=== PATIENT | male | born 1940 | race Caucasian/White ===

== ENCOUNTER 2016-07-31 15:49 | Emergency (ER) | payer MEDICARE, OTHER ==
[~2016-07-31] VITALS: Ht 157.5 cm; Wt 58.6 kg
[~2016-07-31 15:49] MED LIST: CALC-190 PO; CHOL100045 PO; CYAN10008 PO; CYCL5TAB PO; DOCU250C2 PO; DOXA2TAB52 PO; HYDR-4003 PO; LEVO25TA5 PO; MULT-1073 PO; POLY17PO6 PO; RANI300C PO; VITAMIN B IM
[2016-07-31 15:51] VITALS: BP 124/74; PULSE 68; RESP 15; O2SAT 93
[2016-07-31 16:38] LABS: BASOPHILS % (AUTO) 0.1 % (0-3); EOSINOPHILS % (AUTO) 3.9 % (0-5); Mean Corpuscular Hemoglobin 30.1 pg (27.0-35.0); Mean Corpuscular Volume 90.8 fL (81-100); NEUTROPHILS % (AUTO) 69.1 % (40-74); Platelet Count 228 bil/L (150-400)
[2016-07-31 17:03] LABS: TROPONIN T < 0.010 ug/L (0.0-0.011)
[2016-07-31 17:13] LABS: Magnesium 1.7 mg/dL (1.6-2.6)
--- NOTE | 2016-07-31 17:27 | ED.REPORT ---
HPI-Chest Pain 40 and Over Date of Service Jul 31, 2016 ED Provider: Kamlesh Driscoll MD Lenin Juarez is a pleasant 76-year-old gentleman with history of Crohn's disease status post colectomy, BPH, and GERD presents by direction of Dr. Broderick's office for continued shortness of breath and left thoracic pain. Says he had an x-ray performed for pain in his left chest, and he was told since he was continuing to have shortness of breath that he needs to go to the emergency department given that there was something seen on his chest x-ray in his left lung. States he is having some nausea, some dyspnea on exertion, some orthopnea, no lightheadedness, no dizziness, no diarrhea or constipation, no dysuria, no headache, no changes in vision, no weight loss, no weight gain. Says he does have cough that is dry, denies hemoptysis, has not noted any countries known for endemic tuberculosis, nor has he ever knowingly been in contact with anybody with tuberculosis. He is a previous smoker, last smoked in 1990, beforehand smoked off and on for about 20 years at a time. Nursing Notes Stated Complaint: CHEST PAIN Chief Complaint: Respiratory Distress Allergies: Coded Allergies: meperidine (Verified Allergy, Severe, BAD REACTION, high heart rate, ) azathioprine (Verified Allergy, Unknown, 09/29/15) aspirin (Verified Adverse Reaction, Severe, affects stomach, 09/29/15) lactose (Verified Adverse Reaction, Mild, UNSPECIFIED, 09/29/15) Uncoded Allergies: imuran (Allergy, Severe, 11/07/04) Scheduled ([Vitamin B12 1000 mcg]) 1,000 MCG IM monthly Calcium Carb&Cit/Mag12/Vit D3 (Calcium 500 mg Tablet) 1 Each Tablet 1 EACH PO DAILY Cholecalciferol (Vitamin D3) (Vitamin D) 1,000 Unit Capsule 1,000 UNIT PO DAILY Doxazosin (Cardura) 2 Mg Tablet 2-4 MG PO HS Levothyroxine (Levothyroxine) 25 Mcg Tablet 25 MCG PO DAILY Multivits-Min/FA/Lycopene/Lut (Centrum Silver Tablet) 1 Each Tablet 1 EACH PO DAILY Ranitidine (Ranitidine) 300 Mg Capsule 300 MG PO BID Scheduled PRN Cyclobenzaprine (Cyclobenzaprine) 5 Mg Tablet 5 MG PO TID PRN PRN Spasm Docusate Sodium (Docusate Sodium) 250 Mg Capsule 250 MG PO BID PRN PRN For Constipation postop Hydrocodone-Acetaminophen 5-325 mg (Hydrocodone-Acetaminophen 5-325 mg) 1 Each Tablet 1-2 TABLET PO q4-6h PRN PRN For Pain POSTOP Polyethylene Glycol 3350 (Miralax) 17 Gm Powd.pack 17 GM PO DAILY PRN PRN For Constipation Miscellaneous Medications Cyanocobalamin (Vitamin B-12) (Vitamin B-12) 1,000 Mcg Tablet 3,000 MCG PO General Time Seen by MD: 17:15 Chief Complaint Chest pain, Shortness of breath Hx Obtained From: Patient, Spouse Sudden in Onset?: Yes Past Medical History Past Medical History Hypothyroidism Crohn's SP Colectomy BPH GERD Past Surgical History Laminectomy on 09/27/2015 Colectomy Family History mgf - crohns brother - "tumor in his back" Maternal uncle - of colon cancer. father - "had heart problems" Smoking History Former Smoker (quit 1990, off and on through out life. ) Social History Alcohol Use: "Social" Drug Use: Denies drug use Ambulatory Status Independent Review of Systems Complete sys rev & neg: except as marked. Physical Exam General: Laying in bed, no apparent distress. HEENT: Normocephalic, atraumatic, EOMI grossly, Cardiovascular: Regular rate and rhythm, no clicks murmurs rubs, peripheral pulses 2/4 equal bilaterally Pulmonary: Lung morfin clear to auscultation bilaterally, there are decreased breath sounds in the lower left axillary morfin. Abdominal: Soft palpation, tenderness with moderately deep palpation, no rebound , no Btaes's sign, no McBurney point tenderness, negative [place], negative [place]'s Sign. Extremities: No edema appreciated. No tenderness, asymmetry. Neuro: Neurologically grossly intact, strength is equal bilaterally upper and lower extremities. MSK: Able to move extremities on his own volition, strength 5 out of 5 equal bilaterally to upper and lower extremities. Initial Vital Signs Vital Signs (First) Date Time Temp Pulse Resp B/P Pulse Ox O2 Delivery O2 Flow Rate FiO2 07/31/16 15:51 36.9 68 15 124/74 93 Room Air Initial VS: Reviewed, Vital signs normal Interpretation & Diagnostics CT chest abdomen pelvis with contrast performed 07/31/2016 IMPRESSION: 1. Innumera left pulmonary mass lesion and multiple subcentimeter bilateral pulmonary nodules suspicious for primary bronchogenic carcinoma with multiple pulmonary metastases. 2. Extensive mediastinal and hilar adenopathy. 3. Small low density pericardial effusion. 4. Bilateral pleural effusions, greater on the left on the right. 5. Cholelithiasis. No findings to suggest acute cholecystitis or choledocholithiasis. 6. Left lower quadrant enhancing soft tissue mass near the inguinal canal. It is unclear whether this represents some type of soft tissue metastasis or something related to prior hernia surgery (hernia mesh?). Please correlate clinically. No other findings to suggest peritoneal metastasis. 7. Lytic lesion in T9 and posterior left rib lesion suspicious for bony metastasis. Note: The preliminary [facility] interpretation and the final report are concordant. Dictated by: Negin Mott M.D. on 07/31/2016 at 20:42 Lab Results Interpretation Result Diagram: 07/31/16 1634 07/31/16 1634 Test 07/31/16 16:34 White Blood Count 7.2th/mm3 (3.8-10.1) Red Blood Count 4.58mil/mm3 (4.40-5.80) Hemoglobin 13.8g/dL (13.8-17.2) Hematocrit 41.6% (41.0-50.0) Mean Corpuscular Volume 90.8fL (81-100) Mean Corpuscular Hemoglobin 30.1pg (27.0-35.0) Mean Corpuscular Hemoglobin Concent 33.2% (32.0-37.0) Red Cell Distribution Width 14.9% (12.3-15.4) Platelet Count 228bil/L (150-400) Neutrophils (%) (Auto) 69.1% (40-74) Lymphocytes (%) (Auto) 13.2% (14-46) Monocytes (%) (Auto) 13.0% (4-12) Eosinophils (%) (Auto) 3.9% (0-5) Basophils (%) (Auto) 0.1% (0-3) Sodium Level 135mEq/L (134-144) Potassium Level 3.9mEq/L (3.5-5.2) Chloride Level 100mEq/L (97-108) Carbon Dioxide Level 22mmol/L (18-29) Blood Urea Nitrogen 9mg/dL (8-27) Creatinine 0.86mg/dL (0.76-1.27) Estimat Glomerular Filtration Rate 91mL/min (>59) Glucose Level 99mg/dL (60-99) Calcium Level 8.9mg/dL (8.5-10.1) Magnesium Level 1.7mg/dL (1.6-2.6) Total Bilirubin 0.6mg/dL (0.0-1.2) Aspartate Amino Transf (AST/SGOT) 25U/L (0-50) Alanine Aminotransferase (ALT/SGPT) 16U/L (0-44) Alkaline Phosphatase 73U/L (25-160) Troponin T < 0.010ug/L (0.0-0.011) Total Protein 6.1g/dL (6.4-8.4) Albumin 3.6g/dL (3.4-5.0) Hold Benedict Top Tube Received (Received) Lab Results Interpretation: Hematology and chemistries unremarkable ECG Interpretation ECG Interpretation: Sinus rhythm, heart rate 64, AK interval 167, QTC 416, normal axis, "anterior infarct, old" Re-Eval/Medical Decision Med Decision/Clinical Course CAT scan of chest, abdomen, pelvis revealed masses suspicious of cancer and metastatic disease. Findings were shared with patient, his , and daughter. Dr. Salvador, oncologist, was contacted regarding the findings, he stated he would review the images himself and to inform the patient that he can expect a call for scheduling biopsy in the near future. Red flag symptoms for worsening respiratory distress as well as instructions to follow-up with his primary care doctor were discussed, patient and stated understanding and agreement. Discharge & Departure Primary Impression: Lung mass Additional Impressions: Shortness of breath due to in first trimester Metastatic disease Disposition: Home Discharge Condition All VS Reviewed: Yes Condition: Stable Additional Instructions: Today your evaluation showed lesions in your lung that are consistent with cancer. Additionally, there are also signs that there is spread to your spine and lymph nodes around your lungs. At this point we are not able to tell you if the mass in your lungs is the primary lesion or if it is itself spread from another part of your body. I have spoken personally with Dr. Salvador of oncology, informed him of your diagnosis and symptoms, he says you will be contacted for biopsy to help expedite the diagnosis and treatment and that you should be hearing about scheduling and the next day or 2. Please follow-up with Dr. Broderick as well. Both copies of today's visit and results will be sent to the two doctors. If you experience any worsening shortness of breath, lightheadedness, dizziness , or worsening pain in your chest you are welcome to return to the emergency department or call 911 if necessary. I encourage you to be optimistic, go about daily life, and write down questions as you have them so they may be answered by the appropriate physician. Referrals: Oleg Broderick MD (PCP) Teri Salvador MD EDSupervising Provider for APC: Kamlesh Driscoll MD Attending Statement Attending attestation: I saw this patient in conjunction with the above named resident. I was present for all torres portions of the history taking and physical examination. I agree with the workup, evaluation, treatment and disposition. Kamlesh Driscoll MD copies to: Oleg Broderick MD; Teri Salvador MD, Noah M DO Jul 31, 2016 17:27 Kamlesh Driscoll MD Jul 31, 2016 22:58
[2016-07-31] MEDS ORDERED: Iohexol 240 mg/mL 10 mL Inj PO ONE (18:00)
[2016-07-31] MEDS ORDERED: IOHEXOL ONE (18:37)
--- NOTE | 2016-07-31 20:57 | DRSVH ---
PROCEDURE: CT CHEST, ABDOMEN AND PELVIS WITH CONTRAST ([id number]) INDICATIONS: Lung effusion, mass in L lung, CA eval TECHNIQUE: After the administration of intravenous contrast, 5 mm thick sections acquired from the lung apices t o the symphysis. 5 mm coronal and sagittal reformats were performed, with additional 7 mm MIP reform ats through the lungs. For radiation dose reduction, the following was used: automated exposure con trol, adjustment of mA and/or kV according to patient size. COMPARISON: FINDINGS: Image quality: Excellent. CHEST: Lungs and pleura: There are innumerable bilateral subcentimeter pulmonary nodules. These are largest and most confluent at the right dependent lung bases. There is a small right and moderate left low-de nsity pleural effusion. These findings are new when compared with the prior chest CT dated 08/15/11. N o pneumothorax. An ill-defined mass is present within the left midlung which measures 3.9 x 4.5 cm. Mediastinum: Heart size is normal. There is a small low-density pericardial effusion. There are multi ple enlarged enhancing mediastinal lymph nodes, the largest of which is in the subcarinal location an d measures 3.0 cm in diameter. There is bilateral hilar adenopathy and enlarged periaortic lymph node s as well. Chest wall: No axillary or supraclavicular adenopathy by size criteria. Thyroid gland is unremarkab le. ABDOMEN: Solid organs: Liver and spleen are normal in size and enhancement. Punctate calcifications within th e spleen suggest prior granulomatous disease. Multiple subcentimeter gallstones are present within th e gallbladder. Biliary system is non dilated. Pancreas enhances normally. No adrenal nodules. Kid neys demonstrate normal size and enhancement, without hydronephrosis. Peritoneum and bowel: Bowel loops demonstrate normal wall thickness and caliber. Patient is status p ost right hemicolectomy. No free fluid or air. Nodes and vessels: No retroperitoneal or mesenteric adenopathy by size criteria. Aorta and inferior vena cava are normal in size. There are scattered atheromatous calcifications throughout the aorta and iliac arteries bilaterally. Miscellaneous: No ventral hernias. PELVIS: Genitourinary: Bladder wall thickness is normal. The prostate is enlarged. An ill-defined enhancing soft tissue mass is present within the left lower quadrant (series 2, images 94-100). Miscellaneous: No inguinal adenopathy. There are small bilateral fat-containing inguinal hernias. Bones: There is a right T9 lytic lesion and a left posterior seventh lytic rib lesion with pathologic fracture. IMPRESSION: 1. Innumera left pulmonary mass lesion and multiple subcentimeter bilateral pulmonary nodules suspici ous for primary bronchogenic carcinoma with multiple pulmonary metastases. 2. Extensive mediastinal and hilar adenopathy. 3. Small low density pericardial effusion. 4. Bilateral pleural effusions, greater on the left on the right. 5. Cholelithiasis. No findings to suggest acute cholecystitis or choledocholithiasis. 6. Left lower quadrant enhancing soft tissue mass near the inguinal canal. It is unclear whether this represents some type of soft tissue metastasis or something related to prior hernia surgery (hernia mesh?). Please correlate clinically. No other findings to suggest peritoneal metastasis. 7. Lytic lesion in T9 and posterior left rib lesion suspicious for bony metastasis. Note: The preliminary [facility] interpretation and the final report are concordant. Dictated by: Negin Mott M.D. on 07/31/2016 at 20:42 Approved by: Negin Mott M.D. on 07/31/2016 at 20:55
[2016-07-31 21:19] VITALS: BP 140/78; PULSE 71; RESP 18; O2SAT 93
[2016-08-02] MEDS ORDERED: LEVO50TA6 PO (15:49)
[2016-08-02] MEDS ORDERED: DOXA2TAB PO (15:49)
[2016-08-02] MEDS ORDERED: tumeric PEG (15:49)
[2016-08-03] MEDS ORDERED: OXYGEN (08:35)
[2016-08-03] MEDS ORDERED: MULT1CAP33 PO (08:38)
[2016-08-03] MEDS ORDERED: ACET325T51 PO (08:38)
[2016-08-21] MEDS ORDERED: PRE10 PO (14:31)
[2016-08-21] MEDS ORDERED: AZIT250T4 PO (14:31)
[2016-08-21] MEDS ORDERED: ALBU8.5H2 INHALATION (14:31)
[2016-09-03] MEDS ORDERED: ONDA8TAB10 PO (13:55)
[2016-09-05] MEDS ORDERED: ACET-2605 PO (12:07)
== END 2016-07-31 21:22 | disposition home or self-care (01) ==
LOC: SED 15:49
DX: R91.1 Solitary pulmonary nodule (principal); D16.6 Benign neoplasm of vertebral column; R07.9 Chest pain, unspecified; K21.9 Gastro-esophageal reflux disease without esophagitis; K50.90 Crohn's disease, unspecified, without complications; E03.9 Hypothyroidism, unspecified; Z87.891 Personal history of nicotine dependence; Z88.6 Allergy status to analgesic agent; E73.8 Other lactose intolerance; Z90.49 Acquired absence of other specified parts of digestive tract
CPT/HCPCS: 36415; 71260; 74177; 80053; 83735; 84484; 85025; 93005; 99285; Q9967

== ENCOUNTER 2016-11-10 17:19 | Inpatient (IN) | payer MEDICARE, OTHER ==
[~2016-11-10] VITALS: Ht 157.5 cm; Wt 52.0 kg
[~2016-11-10 17:19] MED LIST changes: +ACET-2605 PO; +ALBU8.5H2 INHALATION; -CALC-190 PO; -CYCL5TAB PO; -DOCU250C2 PO; +DOXA2TAB PO; -DOXA2TAB52 PO; -HYDR-4003 PO; -LEVO25TA5 PO; +LEVO50TA6 PO; -MULT-1073 PO; +MULT1CAP33 PO; +ONDA8TAB10 PO; +OXYGEN; -POLY17PO6 PO; +PRE10 PO; +tumeric PEG
[2016-11-10 17:21] VITALS: BP 126/67; PULSE 70; RESP 30; O2SAT 93
[2016-11-10 18:04] VITALS: BP 115/58; PULSE 74; RESP 21; O2SAT 95
--- NOTE | 2016-11-10 18:13 | ED.REPORT ---
HPI-Dyspnea / Wheezing Date of Service Nov 10, 2016 ED Provider: Naveen Mayfield DO Pt is a 76 year old male with a history of left lung cancer who presents to the ED complaining of SOB onset 2 days ago. He c/o associated intermittent chest pain, cough, and dyspnea. He denies fever. The pt reports that he started a new chemo drug 2 weeks ago and his breathing has been worsening since starting the treatment. He is on oxygen at home. Pt states that his SOB improves with drinking water. The pt denies a history of blood clots, asthma, CHF, COPD; and he is not currently taking blood thinners. Nursing Notes Stated Complaint: DIFFICULTY BREATHING Chief Complaint: Respiratory Distress Nursing Notes Reviewed: Yes Allergies: Coded Allergies: meperidine (Verified Allergy, Severe, BAD REACTION, high heart rate, ) azathioprine (Verified Allergy, Unknown, 09/29/15) diazepam (Verified Allergy, Unknown, 08/17/16) aspirin (Verified Adverse Reaction, Severe, affects stomach, 09/29/15) lactose (Verified Adverse Reaction, Mild, UNSPECIFIED, 09/29/15) Uncoded Allergies: imuran (Allergy, Severe, 11/07/04) Scheduled Acetaminophen (Acetaminophen) 500 Mg Tablet 1,000 MG PO BIDWM Cholecalciferol (Vitamin D3) (Vitamin D) 1,000 Unit Capsule 1,000 UNIT PO QAM Cyanocobalamin (Cyanocobalamin Injection) 1,000 Mcg/1 Ml Vial 1,000 MCG IM Monthly Doxazosin Mesylate (Doxazosin Mesylate) 2 Mg Tablet 2 MG PO BID L. Rhamnosus GG/Inulin (Culturelle Chewable Tablet) 10 Billion Cell-200 Mg Tab.chew 1 EACH PO QAM Levothyroxine (Levothyroxine) 50 Mcg Tablet 50 MCG PO QAM Multivitamin (Multivitamins) 1 Each Capsule 1 EACH PO QAM Pembrolizumab (Keytruda) 100 Mg/4 Ml (25 Mg/Ml) Vial 200 MG IV [id number] Ranitidine (Ranitidine) 300 Mg Capsule 300 MG PO BIDWM Scheduled PRN Acetaminophen/Diphenhydramine (Tylenol Pm Ex-Strength Caplet) 500 Mg-25 Mg Tablet 2 TAB PO HS PRN PRN For Pain Albuterol HFA (Proair HFA) 8.5 Gm Hfa.aer.ad 2 PUFFS INHALATION Q4H PRN PRN For Shortness of Breath Ondansetron ODT (Ondansetron ODT) 8 Mg Tab.rapdis 8 MG PO Q8H PRN PRN For Nausea /Vomiting General Time Seen by MD: 18:12 Chief Complaint Shortness of breath Hx Obtained From: Patient Arrived By: Walk-in Sudden in Onset?: No Onset Occurred: 2 days ago Symptom Duration: Since onset Location: : Substernal Quality: Painful Severity: Current: Mild Severity: Maximum: Moderate Recent Healthcare: Recent doctor visit Similar Sx Previous: No Past Medical History Past Medical History Hypothyroidism Crohn's SP Colectomy BPH Lung Cancer Reports: GERD Past Surgical History Laminectomy on 09/27/2015 Colectomy Family History mgf - crohns brother - "tumor in his back" Maternal uncle - of colon cancer. father - "had heart problems" Smoking History Former Smoker Social History Alcohol Use: "Social" Drug Use: Denies drug use Ambulatory Status Independent Review of Systems Constitutional: Denies: Fever Respiratory: Reports: Dyspnea on exertion, Non-productive cough, Shortness of breath Cardiovascular: Reports: Chest pain Complete sys rev & neg: except as marked. Physical Exam Initial Vital Signs Vital Signs (First) Date Time Temp Pulse Resp B/P Pulse Ox O2 Delivery O2 Flow Rate FiO2 11/10/16 17:21 36.4 70 30 126/67 93 Nasal Cannula 4 Initial VS: Reviewed Head / Eyes: Atraumatic, Normocephalic Abdomen / GI: Soft, Non-tender Extremities: Vascular intact, Neuro intact Skin: Warm, Dry, No cyanosis Neurologic: Alert, Oriented, Nonfocal Psychiatric: Mood/affect normal, Behavior normal General/Constitutional: Awake, Alert, Cooperative Distress / Hydration: Positive: Distress moderate Neck: Atraumatic, Full range of motion RESPIRATORY/CHEST: Fluid on left side with squeaky wheezes. Tachypnea. He can speak in 5 words without having to catch his breath. Cardiovascular: Heart rate NL, Regular rhythm, Heart sounds NL Interpretation & Diagnostics CT ANGIO CHEST PULMONARY EMBOLISM: IMPRESSION: 1. No evidence for central pulmonary embolism. 2. Large suprahilar mass consistent with lung cancer. 3. Slight worsening of pulmonary metastases. 4. Slight worsening of mediastinal and bilateral hilar alek metastases. 5. Moderate left pleural effusion. 6. Small pericardial effusion. 7. Numerous lytic and blastic bone lesions consistent with osseous metastases. 8. Cholelithiasis. Dictated by: Rodri Ferrell M.D. on 11/10/2016 at 20:03 Lab Results Interpretation Result Diagram: 11/10/16 1800 11/10/16 1800 Test 11/10/16 18:00 11/10/16 21:04 White Blood Count 8.3th/mm3 (3.8-10.1) Red Blood Count 4.13mil/mm3 (4.40-5.80) Hemoglobin 12.7g/dL (13.8-17.2) Hematocrit 38.1% (41.0-50.0) Mean Corpuscular Volume 92.3fL (81-100) Mean Corpuscular Hemoglobin 30.8pg (27.0-35.0) Mean Corpuscular Hemoglobin Concent 33.3% (32.0-37.0) Red Cell Distribution Width 19.8% (12.3-15.4) Platelet Count 162bil/L (150-400) Neutrophils (%) (Auto) 67.2% (40-74) Lymphocytes (%) (Auto) 13.8% (14-46) Monocytes (%) (Auto) 14.4% (4-12) Eosinophils (%) (Auto) 1.7% (0-5) Basophils (%) (Auto) 0.1% (0-3) Sodium Level 123mEq/L (134-144) Potassium Level 3.6mEq/L (3.5-5.2) Chloride Level 83mEq/L (97-108) Carbon Dioxide Level 26mmol/L (18-29) Blood Urea Nitrogen 12mg/dL (8-27) Creatinine 0.53mg/dL (0.76-1.27) Estimat Glomerular Filtration Rate 160mL/min (>59) Glucose Level 131mg/dL (60-99) Calcium Level 8.3mg/dL (8.5-10.1) Total Bilirubin 0.5mg/dL (0.0-1.2) Aspartate Amino Transf (AST/SGOT) 17U/L (0-50) Alanine Aminotransferase (ALT/SGPT) 15U/L (0-44) Alkaline Phosphatase 123U/L (25-160) Troponin T < 0.010ug/L (0.0-0.011) Pro-B-Type Natriuretic Peptide 97.48pg/mL (0-486) Total Protein 5.8g/dL (6.4-8.4) Albumin 3.3g/dL (3.4-5.0) Procalcitonin 0.08ng/mL (0.00-0.08) Hold Benedict Top Tube Received (Received) Urine Color Yellow (YELLOW) Urine Appearance Clear (CLEAR,HAZY) Urine pH 5.5 (5.0-8.0) Urine Specific [place] 1.005 (1.003-1.035) Urine Protein Negativemg/dL (NEG,TRACE) Urine Glucose (UA) Negativemg/dL (NEGATIVE) Urine Ketones Negativemg/dL (NEGATIVE) Urine Occult Blood Moderate (NEGATIVE) Urine Nitrite Negative (NEGATIVE) Urine Bilirubin Negative (NEGATIVE) Urine Urobilinogen Normalmg/dL (NORMAL) Urine Leukocyte Esterase Negative (NEGATIVE) Urine RBC >50/hpf (0-2) Urine WBC 0-5/hpf (0-5) Urine Epithelial Cells Occasional/hpf (NONE-MOD) Urine Crystals None seen (NONE SEEN) Urine Bacteria Few/hpf (NONE-FEW) Urine Hyaline Casts None/lpf (NONE) Urine Granular Casts None seen (NONE SEEN) Urine Waxy Casts None seen (NONE SEEN) Urine Red Blood Cell Casts None seen (NONE SEEN) Urine White Blood Cell Casts None seen (NONE SEEN) Urine Mucus None seen (None Seen) Urine Trichomonas None seen (NONE SEEN) Urine Yeast None (NONE SEEN) Urinalysis Comment None Urine Culture Reflexed Not indicated ECG Interpretation ECG Interpretation: Sinus rhythm with a rate of 73 Low voltage, extremity and precordial leads Anteroseptal infarct, old Time: 17:19 Interpreted by: ED physician X-Ray Chest Interpretation Chest Xray Interpretation: IMPRESSION: 1. Small left pleural effusion with left basilar consolidation or atelectasis. 2. Left suprahilar mass. 3. Possible right lower lung nodule. 4. Bilateral interstitial infiltrates suggest mild pulmonary edema or interstitial pneumonia. Dictated by: Rodri Ferrell M.D. on 11/10/2016 at 18:22 View: Portable, 1 view Interpretation / Wet Read by: Interpret - Radiologist Re-Eval/Medical Decision Med Decision/Clinical Course Mr. Juarez looks acutely ill. He has moderate to severe respiratory distress that seemed to improve with beta agonists. His diagnostics show extensive metastatic disease in his chest as well as a moderate-sized pleural effusion small pericardial effusion. Of course there certainly could be pneumonia with parapneumonic effusion. Either way he was treated aggressively and looked and felt better. We will admit him to the progressive care unit. Source of Hx: Old records Re-Evaluation/Progress : Time of Eval: 21:16 Re-Evaluation/Progress Note: Pt rechecked. He is breathing much better after continuous albuterol. Informed pt of plan for admission. Pt understands and agrees with plan for admission. All questions addressed. Consultation : Referral / Consult Name: JoannaElidominique Jon DO Consulted With: Hospitalist Call Returned at: 21:30 Physics Faculty Member: Will see patient, Agrees with eval, Agrees with plan, Accepts admit Counseled Regarding: Diagnosis, Lab results, Need for admission Discharge & Departure Impression: Primary Impression: Respiratory distress Additional Impressions: Pleural effusion Hyponatremia Lung cancer Laterality: unspecified laterality Lung location: unspecified part of lung Qualified Code: C34.90 - Malignant neoplasm of unspecified part of unspecified bronchus or lung Postobstructive pneumonia Disposition: ADMITTED TO HOSPITAL Discharge Condition All VS Reviewed: Yes Condition: Stable Referrals: Oleg Broderick MD (PCP) [place] Attestation Portions of this note were transcribed by Alethea Hager. I, Dr. Mayfield personally performed the history, physical exam and medical decision-making; I reviewed and confirmed the accuracy of the information in the transcribed note. Signed by : Estrada Lemus, 11/10/16 and 19:30. copies to: Oleg Broderick MD, Todd P DO Nov 10, 2016 18:13 Alethea Merritt Nov 10, 2016 18:16
[2016-11-10 18:23] LABS: BASOPHILS % (AUTO) 0.1 % (0-3); EOSINOPHILS % (AUTO) 1.7 % (0-5); MONOCYTES % (AUTO) 14.4 % (4-12); Mean Corpuscular Hemoglobin 30.8 pg (27.0-35.0); Mean Corpuscular Volume 92.3 fL (81-100); NEUTROPHILS % (AUTO) 67.2 % (40-74); Platelet Count 162 bil/L (150-400)
[2016-11-10] MEDS ORDERED: Piperacillin-Tazo 3.375 Gm Inj 3.375 GM in Dextrose 5% Minibag Plus 50 ML IV ONE (18:25)
[2016-11-10] MEDS ORDERED: Albuterol-Ipratropium 3 mL Inhalation Solution NEB ONE (18:25)
--- NOTE | 2016-11-10 18:27 | DRSVH ---
PROCEDURE: X-RAY CHEST ONE VIEW, PORTABLE ([id number]) INDICATIONS: dyspnea TECHNIQUE: One view of the chest was acquired. COMPARISON: [facility], CR, XR CHEST 1VW (PORTABLE), 08/17/2016, 13:22. [facility], CT, CT CHEST ABD PELVIS W CON, 10/17/2016, 14:23. [facility], CR, XR CHEST 1VW (P ORTABLE), 08/17/2016, 14:27. FINDINGS: Surgical changes and devices: None. Lungs and pleura: There is a left suprahilar mass. Possible right lower lung nodule. Bilateral inter stitial infiltrates are present. There is a small to left effusion with left basilar consolidation or atelectasis. No pleural effusions or pneumothorax. Lungs are clear. Mediastinum: Mediastinal contours appear normal. Heart size is normal. Bones and chest wall: No suspicious bony lesions. Overlying soft tissues appear unremarkable. IMPRESSION: 1. Small left pleural effusion with left basilar consolidation or atelectasis. 2. Left suprahilar mass. 3. Possible right lower lung nodule. 4. Bilateral interstitial infiltrates suggest mild pulmonary edema or interstitial pneumonia. Dictated by: Rodri Ferrell M.D. on 11/10/2016 at 18:22 Approved by: Rodri Ferrell M.D. on 11/10/2016 at 18:25
[2016-11-10 18:45] LABS: TROPONIN T < 0.010 ug/L (0.0-0.011)
[2016-11-10 18:50] VITALS: PULSE 72; RESP 26; O2SAT 94
[2016-11-10] MEDS ORDERED: 0.9% Sodium Chloride 1,000 ML IV ONE (19:00)
--- NOTE | 2016-11-10 20:29 | DRSVH ---
PROCEDURE: CT ANGIO CHEST PULMONARY EMBOLISM ([id number]) INDICATIONS: extreme dyspnea, cancer TECHNIQUE: After the administration of intravenous contrast, 2 mm thick sections acquired from the pulmonary api mina to the posterior costophrenic angles. 3-dimensional maximum intensity projection (MIP) coronal a nd sagittal reformats were then acquired through the thorax. For radiation dose reduction, the follo wing was used: automated exposure control, adjustment of mA and/or kV according to patient size. COMPARISON: [facility], CT, CT CHEST ABD PELVIS W CON, 10/17/2016, 14:23. [facility], CR, XR CHEST 1VW (PORTABLE), 11/10/2016, 17:31. [facility], CT, CHEST ANGIO-PE, 08/15/2011, 7:37. FINDINGS: Image quality: Excellent. Pulmonary arteries: Pulmonary arteries are normal in size, and demonstrate no intraluminal filling d efects to suggest central pulmonary embolism. Lungs and pleura: There is a mass in the left upper lobe medially measuring 3.95 5.2 cm, minimally ch anged from 10/09/2016. There are multiple small lung nodules bilaterally consistent pulmonary metastas is, increased compared to the last exam. There are bibasilar consolidations. There is moderate left pleural effusion. No pneumothorax. There is narrowing of the right upper lobe bronchus and the tube t umor compression. Mediastinum: Heart size is normal. There is small pericardial effusion, unchanged. There is extensi ve mediastinal or hilar adenopathy consistent is not metastasis, slightly increased compared to 2016. Thoracic aorta is normal in caliber and enhancement. Esophagus is normal in caliber, without hiatal hernia. Bones and chest wall: There are numerous lytic blastic bone lesions involving the sternum, multiple r ibs, cervical, thoracic and lumbar spine spine consistent with metastases.. Ribs and thoracic spine appear intact throughout. Thyroid gland is normal. No axillary or supraclavicular adenopathy. Abdomen: There are multiple gallstones. Visualized upper abdominal solid organs appear normal in the early arterial phase of enhancement. IMPRESSION: 1. No evidence for central pulmonary embolism. 2. Large suprahilar mass consistent with lung cancer. 3. Slight worsening of pulmonary metastases. 4. Slight worsening of mediastinal and bilateral hilar alek metastases. 5. Moderate left pleural effusion. 6. Small pericardial effusion. 7. Numerous lytic and blastic bone lesions consistent with osseous metastases. 8. Cholelithiasis. Dictated by: Rodri Ferrell M.D. on 11/10/2016 at 20:03 Approved by: Rodri Ferrell M.D. on 11/10/2016 at 20:26
[2016-11-10] MEDS ORDERED: Albuterol 2.5 mg/3 mL Inhalation Solution NEB ONE (20:35)
[2016-11-10] MEDS ORDERED: Ondansetron 2 mg/mL 2 mL Inj IVPUSH PRN (21:30)
[2016-11-10] MEDS ORDERED: Polyethylene Glycol (PEG) 17 Gm Powder PO PRN (21:30)
[2016-11-10] MEDS ORDERED: Alum-Mag Hydrox-Simeth 30 mL Suspension PO PRN (21:30)
[2016-11-10 21:32] LABS: APPEARANCE,URINE CLEAR (CLEAR,HAZY); COLOR,URINE YELLOW (YELLOW); PH,URINE 5.5 (5.0-8.0)
[2016-11-10 21:33] LABS: OCCULT BLOOD,URINE MODERATE (NEGATIVE); UROBILINOGEN,URINE NORMAL (NORMAL)
[2016-11-10] MEDS ORDERED: CYA1000I IM (21:33)
[2016-11-10] MEDS ORDERED: ACET-171 PO (21:34)
[2016-11-10] MEDS ORDERED: ACET325T51 PO (21:34)
[2016-11-10] MEDS ORDERED: LACT1CAP86 PO (21:35)
[2016-11-10] MEDS ORDERED: L. R1TAB PO (21:35)
[2016-11-10] MEDS ORDERED: PEMB100V IV (21:37)
[2016-11-10 22:08] VITALS: BP 117/57; PULSE 82; RESP 16; O2SAT 97
[2016-11-10] MEDS ORDERED: MethylprednisoLONE Sodium Succinate 62.5 mg/mL 2 mL Inj IVPUSH ONE (22:30)
[2016-11-10 22:37] VITALS: PULSE 82; RESP 24; O2SAT 95
[2016-11-10] MEDS: Albuterol 2.5 mg/3 mL Inhalation Solution NEB PRN (22:39)
[2016-11-10] MEDS ORDERED: Benzocaine-Menthol Lozenge 2/Pkg PO PRN (23:20)
--- NOTE | 2016-11-10 23:33 | PCM.HPMED ---
Subjective Date of Service Nov 10, 2016 Primary Provider: Admitting Physician: Eli Marshall DO Primary Care Physician: Oleg Broderick MD Attending Physician: Eli Marshall DO Admit Status: From the Emergency Department, Full Admit Chief Complaint: Shortness of breath. . 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 The patient's reports that his dyspnea worsened yesterday but improved to the point that he was able to get a restful sleep. However, his dyspnea and nonproductive cough worsened throughout the course of the day until she decided to take him to the emergency department. He has associated intermittent pleuritic chest pain, posterior left rib cage pain, and nonproductive cough. He also endorses polydipsia. He was recently started a new chemotherapy agent, pembrolizumab every 3 weeks, approximately 2 weeks ago and he reports his breathing has been worsening since starting the new treatment. He states that his shortness of breath improves with drinking water. He denies headache, vision changes, sore throat, rhinitis, abdominal pain, nausea, vomiting, fever, chills, night sweats , or dysuria. He denies a history of blood clots. He is not currently taking blood thinners. He does have a history of IBD with intermittent diarrhea. The patient reports a good appetite. Of note, the patient completed a prednisone taper yesterday for shortness of breath prescribed by Dr. Whitfield. Vital signs in the ER: Temperature 36.4. Pulse 70. Respiratory rate 30. Blood pressure 126/67. Pulse ox 92% on 4 L nasal cannula. The patient received albuterol and duo nebs 1, 1 L of NS, and Zosyn 1. PCP [address] Broderick. Oncologist is Dr. Whitfield. . Review of Systems: A comprehensive review of systems was conducted with the patient and found to be negative except as above in the History of Present Illness. . Allergies Coded Allergies: meperidine (Verified Allergy, Severe, BAD REACTION, high heart rate, ) azathioprine (Verified Allergy, Unknown, 09/29/15) diazepam (Verified Allergy, Unknown, 08/17/16) aspirin (Verified Adverse Reaction, Severe, affects stomach, 09/29/15) lactose (Verified Adverse Reaction, Mild, UNSPECIFIED, 09/29/15) Uncoded Allergies: imuran (Allergy, Severe, 11/07/04) Home Medications Acetaminophen as needed for pain. Albuterol inhaler 2 puffs every 4 hours as needed for shortness of breath. B12 1000 g IM injections. Doxazosin 2 mg twice a day. Culturelle 1 chewable tablet daily. Levothyroxine 50 g daily. Multivitamin daily. Ondansetron 8 mg every 8 hours as needed for nausea. Pembrolizumab 200 mg IV every 3 weeks. Ranitidine 300 mg twice a day with meals. Vitamin D 1000 IU daily. . PMH 1. Crohn's disease status post total colectomy. 2. Hypothyroidism. 3. Poorly differentiated adenocarcinoma of the lung with bone metastases. 4. BPH. 5. GERD. 6. Chronic respiratory failure on 3 L oxygen at baseline. . Surgical History 1. Laminectomy on 09/27/2015. 2. Total Colectomy. 3. Inguinal hernia repair 3. 4. Bilateral cataract extraction. 5. Amblyopia corrective surgery. 6. Tonsillectomy. . Family History Maternal grandmother with Crohn's. Brother with unknown type of back tumor. Maternal uncle who of colon cancer. Father who had heart disease. . Social History Hx Alcohol Use: No Hx Substance Use: No Hx Tobacco Use: No Smoking Status: Former Smoker (1 PPD 20 years, quit 25 years ago) Living Arrangement: with Family Additional Information The patient has been to his current for 21 years. He and his have 7 children total. He has 1 biological son who is healthy. He lives with his here in [place]. He uses a FWW to help with ambulation. . Exam Vital Signs Vital Sign - Last Date Time Temp Pulse Resp B/P Pulse Ox O2 Delivery O2 Flow Rate FiO2 11/10/16 18:50 72 26 94 Nasal Cannula 3 11/10/16 18:04 115/58 11/10/16 17:21 36.4 Exam General: Thin elderly male sitting in bed, in mild distress, well-developed, appropriate interactive. HEENT: Normocephalic, atraumatic. External ears without defect. Pupils equal, round, and reactive to light. Anicteric sclerae, moist conjunctivae, and no lid lag. Oropharynx free of erythema and cobble stoning with moist mucosa. Neck: Supple with full range of motion. No jugular venous distension. No bruits. No lymphadenopathy or thyromegaly. Cardiovascular: Distant heart sounds, regular rate and rhythm with no murmurs, rubs, or gallops appreciated. Pulmonary: Scattered wheeze with crackles bilaterally, diminished breath sounds in posterior left lower lung field, use of accessory muscles. Abdomen: Soft, nontender, nondistended, bowel sounds present. No hepatosplenomegaly or masses appreciated. Extremities: No clubbing, cyanosis, or edema. Skin: Normal temperature, turgor, and texture; no rash, ulcers, or subcutaneous nodules appreciated. Neurological: Cranial nerves grossly intact. Normal muscle strength, tone, and bulk. Reflexes, coordination, and sensory function within normal limits. Known gait impairment with use of FWW. Psychiatric: Normal mood and affect. Alert and oriented to person, place, and time. . Lab and Diagnostics Labs Item Value Date Time Lactic Acid Level 2.1 mmol/L H 11/10/16 1800 Procalcitonin 0.08 ng/mL 11/10/16 1800 Result Diagram: 11/10/16 1800 11/10/16 1800 Microbiology Blood cultures 2 pending. . X-Rays, CTs and MRIs CT ANGIO CHEST PULMONARY EMBOLISM IMPRESSION: 1. No evidence for central pulmonary embolism. 2. Large suprahilar mass consistent with lung cancer. 3. Slight worsening of pulmonary metastases. 4. Slight worsening of mediastinal and bilateral hilar alek metastases. 5. Moderate left pleural effusion. 6. Small pericardial effusion. 7. Numerous lytic and blastic bone lesions consistent with osseous metastases. 8. Cholelithiasis. Dictated by: Rodri Ferrell M.D. on 11/10/2016 at 20:03 Approved by: Rodri Ferrell M.D. on 11/10/2016 at 20:26 X-RAY CHEST ONE VIEW, PORTABLE IMPRESSION: 1. Small left pleural effusion with left basilar consolidation or atelectasis. 2. Left suprahilar mass. 3. Possible right lower lung nodule. 4. Bilateral interstitial infiltrates suggest mild pulmonary edema or interstitial pneumonia. Dictated by: Rodri Ferrell M.D. on 11/10/2016 at 18:22 . 12-lead ECG EKG: Normal sinus rhythm, heart rate 73, low-voltage throughout precordial leads , normal intervals, poor R-wave progression, no pathological Q waves or acute ischemic changes such as ST elevation or depression . 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 Acute respiratory failure with hypoxia, POA -secondary to PNA a/w pleural effusion -treatment as below 1. Acute post-obstructive pneumonia with left parapneumonic effusion, present on admission. Active. - Patient presented with worsening dyspnea with associated nonproductive cough and left rib pain. - Chest x-ray reviewed on admission demonstrated small left pleural effusion with left basilar consolidation or atelectasis, left suprahilar mass, possible right lower lung nodule, and bilateral interstitial infiltrates suggest mild pulmonary edema or interstitial pneumonia, as above. - CTA showed no evidence of pulmonary embolism, as above. - Initial lactic acid 2.1. Continue to repeat every 2 hours until under 2.0. - Ordered complete pneumonia workup including: Legionella and strep pneumoniae urine antigens, respiratory viral PCR, sputum gram stain and culture, and blood cultures 2, pending. - Ordered MRSA screen, pending. - Ordered duo nebs 4 times a day while awake and albuterol nebs every 4 hours as needed for shortness of breath. - Continue supplemental oxygen and titrate up if needed. - Continue Zosyn 3.375 g every 8 hours and levofloxacin 150 mg daily. - Ordered methylprednisolone 125 mg every 6 hours. - Ordered diagnostic and therapeutic thoracentesis tomorrow. - The patient is very sensitive to opiates and benzodiazepines, therefore, we will try to avoid if possible for respiratory distress. - Day team to contact patient's oncologist Dr. Whitfield. 2. Acute hyponatremia, present on admission. Active. 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 - Initial sodium level 123. - Place the patient on a daily 2 L fluid restriction. - Received 1L of NS in the ER. Did not order IV fluid hydration as the patient has a parapneumonic effusion and worsening dyspnea. Chronic problems: 3. Crohn's disease, present on admission. Stable. - Thought to be in remission. - Continue Culturelle daily. 4. Hypothyroidism, present on admission. Stable. - Continue levothyroxine 50 g daily. 5. BPH, present on admission. Stable. - Continue doxazosin 2 mg twice a day. 6. GERD, present on admission. Stable. - Ordered famotidine 20 mg twice a day. PRN antiemetics: Zofran and Maalox. PRN bowel regimen: Senna and MiraLAX. PRN analgesics: Tylenol. Patient is admitted under inpatient status with expected length of stay greater than 2 midnights due to severity of presenting symptoms, risk of adverse event, and complexity of treatment plan. . GI Prophylaxis: H2 thaddeus VTE Prophylaxis: Sub-Q Enoxaparin VTE Mechanical Devices: Intermittant Pneumatic CD Resuscitation Status: CPR: Attempt Resuscitation Attending Statement The patient was seen and examined together with house staff on 11/10/2016 and I agree with the history, exam and plan as outlined in the note above. copies to: Oleg Broderick MD; Paramjit Whitfield MD, Georgia M DO Nov 10, 2016 21:33 Eli Marshall DO Nov 11, 2016 02:00
[2016-11-10 23:40] VITALS: BP 112/71; PULSE 87; RESP 24; O2SAT 93
[2016-11-11] VITALS (11 sets, daily range): BP systolic 120–137; BP diastolic 46–81; PULSE 72–90; RESP 16–24; O2SAT 91–96
[2016-11-11] MEDS: Albuterol 2.5 mg/3 mL Inhalation Solution NEB PRN (01:41)
[2016-11-11 02:57] LABS: BASOPHILS % (AUTO) 0.1 % (0-3); EOSINOPHILS % (AUTO) 0.1 % (0-5); MONOCYTES % (AUTO) 2.5 % (4-12); Mean Corpuscular Volume 90.3 fL (81-100); NEUTROPHILS % (AUTO) 91.3 % (40-74); Platelet Count 155 bil/L (150-400)
[2016-11-11] MEDS ORDERED: 0.9% Sodium Chloride 250 ML ONE (03:11)
[2016-11-11] MEDS: Piperacillin-Tazo 3.375 Gm Inj 3.375 GM in Dextrose 5% Minibag Plus 50 ML IV SCH ×2 (03:20→11:40)
[2016-11-11 03:29] LABS: Magnesium 1.4 mg/dL (1.6-2.6)
--- NOTE | 2016-11-11 04:33 | NUR ---
Admit Admitted to rm 2030, admission interview and assessment completed , in room assisting w ADL and information. SOB and coughing, Ordered PRN Mebs and throat lozenges for sough symptoms. Has pleural effusion, pneumonia, maira have watershed engineer and Oncology consult in AM. SBA to transfer, and stand bedside to void. Dr Meza explained the SIADH and thirst, is on 2 L/d fluid restriction. No IV fluids . Came to floor on 5 L O2 , changed to Oxy mask @ 8 to sleep , SOB probably related to stress of entering hospital. Single Lumen PICC , Rt arm. Dr Mendez SR mid
[2016-11-11] MEDS ORDERED: levoFLOXacin 750 mg Tablet PO SCH (07:30)
[2016-11-11] MEDS: Lactobacillus Rhamnosus 10 Bil Unit Capsule PO SCH ×2 (08:30→12:41)
[2016-11-11] MEDS: Albuterol-Ipratropium 3 mL Inhalation Solution NEB SCH ×3 (09:19→16:00)
[2016-11-11] MEDS ORDERED: Sodium Chloride LOK Flush 10 mL Syringe IVFLUSH PRN ×2 (10:10)
--- NOTE | 2016-11-11 10:46 | CONS ---
[address] [address] CONSULTATION REPORT PATIENT: SURY GROSS : 1940 MR#: [id number] ADMIT: 11/10/2016 JOB ID: [id number] DATE OF SERVICE: 11/11/2016 PULMONARY CONSULTATION NOTE: IDENTIFICATION: The patient is a 76-year-old man with history of stage 4 adenocarcinoma of the left lung seen for evaluation of acute on chronic hypoxic respiratory failure, worsening dyspnea at the request of Dr. Arroyo. HISTORY OF PRESENT ILLNESS: The patient is a 76-year-old man with a distant [id number] smoking history who was diagnosed with stage 4 adenocarcinoma of the left lung in July 2016. He is followed by Dr. Whitfield in Oncology. He was started on carboplatin and Taxol at that time and a couple of weeks ago, based on evidence of the disease progression on this regimen he was started on pembrolizumab based on PDL-1 tumor marker. He has only received one dose of this so far i.e. two weeks ago and his last dose of carboplatin and Taxol was four weeks ago. At baseline he has been on about 2-3 L of oxygen since diagnosed with lung cancer in July 2016. In the last week however he has noted significant worsening in shortness of breath, more so in the last 2-3 days. His oxygen requirement is up to 5-6 L from his baseline of 2-3. He has some minimal cough, but denies any hemoptysis, significant sputum production. He is having some chest pain that is worse anteriorly especially with coughing. Denies fevers, chills. He has been having sweats for months, specifically at nighttime. He has lost about 10-15 pounds in weight. He has chronic diarrhea because of a history of Crohn disease and denies any nausea, vomiting, and abdominal pain. He has also been having some dizziness. He is currently on 6 L OxyMask in the hospital. PAST MEDICAL HISTORY: 1. Stage 4 adenocarcinoma of the left upper lobe with multiple bone metastases confirmed by biopsy, status post carboplatin and Taxol since July 2016, last dose four weeks ago. Initiated on pembrolizumab based on PDL-1 tumor marker positivity, first dose was given two weeks ago. 2. History of Crohn disease status post total colectomy. 3. Hypothyroidism. 4. BPH. 5. Chronic respiratory failure on 3 L oxygen. SOCIAL HISTORY: Ex-smoker who quit smoking 25 years ago. He has a [id number] smoking history. 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 FAMILY HISTORY: He had two uncles with cancer-one with colon cancer and the other with either liver or pancreatic cancer. He also had a brother with some kind of "back tumor". REVIEW OF SYSTEMS: A 10-point review of systems as described in HPI and positive as mentioned in HPI. Remaining review of systems is negative. PHYSICAL EXAMINATION: Vital signs reviewed. He is afebrile. Pulse 83, respirations 20, BP 125/72, sats 93% on 6 L OxyMask. General, he is alert, sitting up in bed, speaking full sentences. Pupils are equal. There is no scleral icterus. Oral mucosa is moist, no ulcers or thrush. Neck: No cervical lymphadenopathy. Chest coarse bilateral rhonchi and wheezes heard all over with decreased to absent breath sounds at the left base. Heart regular rate, rhythm. Abdomen nontender, no organomegaly. Extremities no cyanosis, clubbing, or edema. LABORATORIES: Reviewed. WBC normal 9.3, hemoglobin 12.8, platelets 155. Chemistry also reviewed. Notable for sodium of 123 up to 127 today. Procalcitonin 0.08 on first check and second check 0.12. Blood cultures pending. Urine, Strep, pneumonia screen is negative. IMAGING: Chest x-ray as well as CT pulmonary angiogram from November [address] is notable for left upper lobe suprahilar mass measuring about 5 cm. Multiple small lung nodules bilaterally, hilar and mediastinal lymphadenopathy. Moderate left pleural effusion. No pulmonary emboli. Bilateral ground-glass and consolidative changes as well as interlobular septal thickening, more so in the dependent region that could be infection, edema, pneumonitis. On comparison with the last CT from October 17 there is a slight increase in these consolidative changes, but otherwise no overall change. Pleural effusion has been present at least going back to July 2016. ASSESSMENT AND RECOMMENDATIONS: 1. Acute on chronic hypoxic respiratory failure-currently on 6 L OxyMask. 2. Stage 4/metastatic adenocarcinoma of the left upper lobe, status post carboplatin and Taxol for many months, now status post first dose of pembrolizumab. 3. Moderate left pleural effusion-suspected malignant. 4. Acute pneumonitis-most likely due to pembrolizumab. RECOMMENDATIONS: This 76-year-old man is here with worsening hypoxemia two weeks after receiving his first dose of pembrolizumab for PBL-1 receptor positive adenocarcinoma of the left upper lobe, stage 4 with mets to the bones. His CT findings would certainly be consistent with mild worsening pneumonitis in this patient with baseline hypoxia requiring 3 L. I am not sure if steroids would help, but really there is no alternative treatments. I am going to start him on methylprednisolone 40 mg IV q.8. Also he has a moderate pleural effusion that seems slightly larger compared to a few months ago, and I think draining this will help give him more pulmonary reserve. I did discuss this at length with him and discussed risks and benefits of a thoracentesis. Patient wanted me to speak to his oncology team before proceeding, and I checked with Dr. Salvador who agrees with proceeding. We will go ahead and do this today more as a therapeutic procedure, but also send it for cytology to see if it is indeed a malignant effusion. Note that his procalcitonin is negative x2 so I think we should stop his antibiotics. I recommend getting an echo as well since he has never had one although BNP < 100 so not likely to be heart failure. takes over the pulmonary service tomorrow. FRANCA
[2016-11-11 10:57] LABS: INR 0.95 ratio
[2016-11-11] MEDS: MethylprednisoLONE Sodium Succinate 40 mg/mL Inj IVPUSH SCH ×2 (11:41→18:09)
[2016-11-11] MEDS ORDERED: HYDROmorphone 0.5 mg/0.5 mL iSecure Syringe IVPUSH PRN (12:20)
--- NOTE | 2016-11-11 13:05 | DRSVH ---
PROCEDURE: X-RAY CHEST ONE VIEW, PORTABLE ([id number]) INDICATIONS: r/o pneumothorax post thoracentesis TECHNIQUE: One view of the chest was acquired. COMPARISON: [facility], CR, XR CHEST 1VW (PORTABLE), 11/10/2016, 17:31. FINDINGS: Surgical changes and devices: None. Lungs and pleura: No pleural effusions or pneumothorax. Moderate diffuse coarse reticulonodular dens ity. Moderate patchy air space opacity within the left lung base. Mediastinum: Mediastinal contours appear normal. Heart size is normal. Bones and chest wall: No suspicious bony lesions. Overlying soft tissues appear unremarkable. IMPRESSION: 1. No complication following thoracentesis. 2. Moderate diffuse pneumonia. Follow up plain films of the chest are recommended to ensure resolutio n, and to exclude underlying or central malignancy. Dictated by: Taran Mathews M.D. on 11/11/2016 at 13:03 Approved by: Taran Mathews M.D. on 11/11/2016 at 13:04
[2016-11-11 14:39] LABS: GLUCOSE,PLEURAL FLUID 159 mg/dL; TOTAL PROTEIN,PLEURAL FLUID 4 g/dL
[2016-11-11 15:46] LABS: BFWBC 168 /mm3; MONOCYTES,BODY FLUID 28 %; OTHER CELLS,BODY FLUID 0
--- NOTE | 2016-11-11 16:36 | PCM.PROC ---
Procedure Note Date of Service: Nov 11, 2016 Pre Procedure Diagnosis: Post-obstructive Para-pneumonic Left sided Pleural Effusion. Post Procedure Diagnosis: Post-obstructive Para-pneumonic Left sided Pleural Effusion, Transudate. Procedure: Ultra Sound Guided Thoracentsis for Left Sided Plural Effusion. Provider and Production Packager: Provider: Dr. Todd Bustillos. Production Packager: Dr. Rachel Deal. Indication for Procedure: Shortness of breath 2nd to Large Left sided pleural effusion. Findings: Transudate upon initial inspection. Cell count and cytology sent for analysis. Procedure Details: Ultrasound guided Left sided Thoracentesis. Date: 11/11/2016 Time: 11:30 Indication: Large Left sided pleural effusion Resident: Dr. Todd Bustillos. PGY2 Attending: Dr. Rachel Deal. A time-out was completed verifying correct patient, procedure, site, positioning , and special equipment if applicable. The patients Left side was prepped and draped in a sterile manner after the appropriate infiltration level was confirmed by ultrasound. 1% lidocaine was used anesthetize the surrounding skin and tissue down to the pleura. A finder needle was then used to locate fluid and clear yellow fluid was obtained. A 10-blade scalpel used to make the incision. The thoracentesis catheter was then threaded without difficulty. The patient had approximately 1.25 L of clear yellow fluid removed. Dr. Deal and Dr. Bustillos was present for the entire procedure. A post-procedure chest x-ray was reviewed which was negative for trapped lung and pneumothorax and the pleural fluid was sent for several studies. Estimated Blood Loss: < 5cc. The patient tolerated the procedure well and there were no complications. The patient had a small adjustment period of cough and left sided pain following the procedure, which resolved within 15 minutes. Specimen: Pending. Post Procedure Plan: Toradol PRN for pain. Incentive spirometer every hour at bed side. Attending Statement Procedure: Ultrasound-guided left thoracentesis Indication: Left pleural effusion Date of service: 11/11/16 I was present for and supervised the entire procedure. Rachel Deal M.D. Pulmonary and Critical Care medicine Pager [phone] TODD BUSTILLOS DO Nov 11, 2016 16:36 Rachel Deal MD Nov 12, 2016 12:20
--- NOTE | 2016-11-11 17:04 | NUR ---
Social Work- Multidisciplinary Rounds Pt discussed in rounds. Pt to receive thoracentesis today. SW unable to see pt today due to high census. SW will continue to follow for discharge planning and to complete assessment. MASOUD Soto
--- NOTE | 2016-11-11 18:21 | PCM.PNMED ---
Subjective Date of Service Nov 11, 2016 Subjective Overnight Events. No acute events overnight. Patient is resting in bed comfortably eating breakfast and in no acute distress with oxy mask in place at 5L. The patient reports feeling better than the day prior. The patient denies headache, dizziness, sore throat, cough, chest pain, abdominal pain, nausea, vomiting, constipation, and diarrhea. The patient is voiding and eliminating without difficulty. He reports some persistent dry cough and left lower rib pain with deep inspiration. Exam Vital Signs Vital Sign - Last Date Time Temp Pulse Resp B/P Pulse Ox O2 Delivery O2 Flow Rate FiO2 11/11/16 05:20 36.4 77 24 120/70 95 Nasal Cannula 6.00 Intake and Output 11/10/16 11/10/16 11/11/16 Cumulative From/Thru 15:00 23:00 07:00 11/10/16 17:21 - 11/11/16 07:00 Intake Total 1000 ml 200 ml 1200 ml Output Total 1500 ml 1500 ml Balance 1000 ml -1300 ml -300 ml Intake Oral 200 ml 200 ml IV Total 1000 ml 1000 ml Output Urine Total 1500 ml 1500 ml # Voids 5 5 # Bowel Movements 0 0 Exam General: Thin elderly male sitting in bed, in mild distress, well-developed, appropriate interactive. HEENT: Normocephalic, atraumatic. External ears without defect. Pupils equal, round, and reactive to light. Anicteric sclerae, moist conjunctivae, and no lid lag. Oropharynx free of erythema and cobble stoning with moist mucosa. Neck: Supple with full range of motion. No jugular venous distension. No bruits. No lymphadenopathy or thyromegaly. Cardiovascular: Distant heart sounds, regular rate and rhythm with no murmurs, rubs, or gallops appreciated. Pulmonary: Scattered wheeze with crackles bilaterally, diminished breath sounds in posterior left lower lung field, use of accessory muscles. Abdomen: Soft, nontender, nondistended, bowel sounds present. No hepatosplenomegaly or masses appreciated. Extremities: No clubbing, cyanosis, or edema. Skin: Normal temperature, turgor, and texture; no rash, ulcers, or subcutaneous nodules appreciated. Neurological: Cranial nerves grossly intact. Normal muscle strength, tone, and bulk. Reflexes, coordination, and sensory function within normal limits. Known gait impairment with use of FWW. Psychiatric: Normal mood and affect. Alert and oriented to person, place, and time. . IVs and Medications Medications Reviewed: Medications were reviewed in detail Lab and Diagnostics Result Diagram: 11/11/16 02411/11/16 024 Microbiology Blood cultures 2 pending. . X-Rays, CTs and MRIs CT ANGIO CHEST PULMONARY EMBOLISM IMPRESSION: 1. No evidence for central pulmonary embolism. 2. Large suprahilar mass consistent with lung cancer. 3. Slight worsening of pulmonary metastases. 4. Slight worsening of mediastinal and bilateral hilar alek metastases. 5. Moderate left pleural effusion. 6. Small pericardial effusion. 7. Numerous lytic and blastic bone lesions consistent with osseous metastases. 8. Cholelithiasis. Dictated by: Rodri Ferrell M.D. on 11/10/2016 at 20:03 Approved by: Rodri Ferrell M.D. on 11/10/2016 at 20:26 X-RAY CHEST ONE VIEW, PORTABLE IMPRESSION: 1. Small left pleural effusion with left basilar consolidation or atelectasis. 2. Left suprahilar mass. 3. Possible right lower lung nodule. 4. Bilateral interstitial infiltrates suggest mild pulmonary edema or interstitial pneumonia. Dictated by: Rodri Ferrell M.D. on 11/10/2016 at 18:22 . 12-lead ECG EKG: Normal sinus rhythm, heart rate 73, low-voltage throughout precordial leads , normal intervals, poor R-wave progression, no pathological Q waves or acute ischemic changes such as ST elevation or depression . 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 Acute post-obstructive pneumonia with left parapneumonic effusion, present on admission. Improved. - Patient has a stable Left pleural effusion with CT comparison in July 2016. - Ordered complete pneumonia workup including: Legionella and strep pneumoniae urine antigens, respiratory viral PCR, sputum gram stain and culture, and blood cultures 2, negative. - Ordered duo nebs 4 times a day while awake and albuterol nebs every 4 hours as needed for shortness of breath. - Continue supplemental oxygen and titrate up if needed. - The patient is very sensitive to opiates and benzodiazepines, therefore, we will try to avoid if possible for respiratory distress. - Day team to contact patient's oncologist Dr. Whitfield. - Ordered methylprednisolone 125 mg every 6 hours. Suggest switching from 1.5 mg / Kg to 1 mg / Kg (or roughly 40 Q12H for 1 week.) Then 60 mg prednisone daily for 2 weeks. Will reconsult Pulmonology. - Left sided Thoracentesis 11/11/16 13:30, with 1250 ml clear yellow fluid yielded, cell count and cytology pending. Acute hypoxic respiratory failure, present on admission. Improving. - Secondary to post obstructive para pneumonic pleural effusion on the left side or continuing metastatic process. - treatment as below - Patient on home O2 2-3 L. Acute hyponatremia, present on admission. Active. 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 - Initial sodium level 123. - Place the patient on a daily 2 L fluid restriction. - Received 1L of NS in the ER. Did not order IV fluid hydration as the patient has a parapneumonic effusion and worsening dyspnea. Chronic problems: Crohn's disease, present on admission. Stable. - Thought to be in remission. - Continue Culturelle daily. Hypothyroidism, present on admission. Stable. - Continue levothyroxine 50 g daily. BPH, present on admission. Stable. - Continue doxazosin 2 mg twice a day. GERD, present on admission. Stable. - Ordered famotidine 20 mg twice a day. Acetaminophen for mild pain when necessary. Bowel regimen Senna and MiraLAX scheduled and PRN. Zofran when necessary for nausea and vomiting. SubQ heparin held for now. Patient on Lovenox SCDs in place. Disposition: Likely here for > 2 midnights. Dependent upon... Will be discharged to where? When? Acute or chronic? Pain Evaluation: Adequate Pain Control GI Prophylaxis: H2 thaddeus VTE Prophylaxis: Sub-Q Enoxaparin VTE Mechanical Devices: Intermittant Pneumatic CD Resuscitation Status: CPR: Attempt Resuscitation Attending Statement The patient was seen and examined together with Dr. Bustillos on 11/11/2016 and I agree with the history, exam and plan as outlined in the note above. . HENRI BUSTILLOS DO Nov 11, 2016 07:36 Raghu Arroyo MD Nov 13, 2016 10:01
[2016-11-12] MEDS: MethylprednisoLONE Sodium Succinate 40 mg/mL Inj IVPUSH SCH ×2 (00:37→07:59)
[2016-11-12 03:56] VITALS: BP 126/74; PULSE 73; RESP 20; O2SAT 92
--- NOTE | 2016-11-12 06:09 | NUR ---
Rest/Tele/Respiratory Patient continues to be in sinus rhythm in the 70s-80s. On 3L O2 at rest, denies unusual shortness of breath. Sleeping soundly overnight. Continue to monitor.
[2016-11-12 07:55] VITALS: BP 148/79; PULSE 78; RESP 16; O2SAT 90
[2016-11-12] MEDS: Lactobacillus Rhamnosus 10 Bil Unit Capsule PO SCH (08:03)
[2016-11-12 08:20] VITALS: PULSE 73; RESP 20; O2SAT 91
[2016-11-12] MEDS: Albuterol-Ipratropium 3 mL Inhalation Solution NEB SCH ×2 (08:20→11:28)
[2016-11-12 09:04] LABS: BASOPHILS % (AUTO) 0.1 % (0-3); EOSINOPHILS % (AUTO) 0 % (0-5); MONOCYTES % (AUTO) 5.9 % (4-12); Mean Corpuscular Hemoglobin 30.9 pg (27.0-35.0); Mean Corpuscular Volume 91.7 fL (81-100); NEUTROPHILS % (AUTO) 86.7 % (40-74); Platelet Count 173 bil/L (150-400)
[2016-11-12 11:29] VITALS: PULSE 78; RESP 24; O2SAT 91
--- NOTE | 2016-11-12 11:30 | NUR ---
Social Work Note: Multidisciplinary Rounds Pt was discussed in AM rounds today, per MD pt is not medically ready for discharge at this time. Per MD pt may require IV abx. No MD orders identified at this time. SW to continue to follow for MD orders and follow up with pt regarding initial Assessment and discharge planning needs. MASOUD Ragland
--- NOTE | 2016-11-12 11:47 | PCM.DIMED ---
Umesh Loredo DO 11/12/16 0936: Discharge Instructions Date of Service Nov 12, 2016 Dates of Hospitalization Nov 10, 2016 at 21:14 Discharge Diagnosis Discharge Diagnosis Acute hypoxic respiratory failure, present on admission. Improving. Pleural effusion, present on admission, acute on chronic, resolved. Acute hyponatremia, present on admission. Active. Crohn's disease, present on admission. Stable. Hypothyroidism, present on admission. Stable. BPH, present on admission. Stable. . GERD, present on admission. Stable. Medication Instructions Additional med instructions we are going to do a prednisone taper: 40mg (two pills) twice per day for 1 week then 40mg (two pills) once per day for 2 weeks then 20mg once per day Test Results Test Results the analysis of the fluid that was taken from the lung effusion showed that this was most likely not from an infection, but more probably due to your ongoing lung cancer. Diet Discharge Diet: No restrictions Activity Discharge Activity: No restrictions Call your provider Call your provider for: Fever or Chills, Shortness of breath (requiring more than 3L ), Bleeding, Chest pain, Vomitting, Excessive diarrhea, Weakness ( unilateral) Patient Instructions Patient Instructions It is highly likely that this fluid accumulation in your chest will happen again. So if you begin to feel short of breath we suggest that you follow up with your primary care doctor as soon as possible for reassessment. Follow-up plan follow up with dr. Broderick within one week. follow up with dr. Whitfield within 2 weeks Follow-up Provider: Oleg Broderick MD Follow-up with PCP in: 2 weeks Provider: Paramjit Whitfield MD Follow-up in: 2 weeks Taylor Feliz DO 11/12/16 1259: Discharge Instructions Patient Instructions Patient Instructions If your shortness of breath returns please call Dr. Whitfield first for further instructions. If you are unable to contact Dr. Tamayo then please call your primary care doctor. Attending's Statement The patient was seen and examined together with Dr. Loredo on 11/12/16 and I have added additional information to the note above. Umesh Loredo DO Nov 12, 2016 09:36 Taylor Feliz DO Nov 12, 2016 12:59
[2016-11-12] MEDS ORDERED: PRE20 PO (11:49)
--- NOTE | 2016-11-12 13:55 | NUR ---
Discharge Patient A&Ox3, independent in room. Denies pain/discomfort, VSS. Wears supplemental O2 3L NC oxymask. Discharge instructions an medication teaching printed and reviewed verbally with patient. All questions answered. Patient has single lumen PICC in the R upper arm that he uses for chemo. IV therapy RN changed dressing this AM. Patient left unit via wc accompanied by his and transported home via personal vehicle.
--- NOTE | 2016-11-12 14:38 | NUR ---
Social Work Note: Initial Assessment/Discharge/Multidisciplinary Rounds Data& Assessment: EMR reviewed. Pt was discussed in AM rounds today, per pt is medically ready to discharge home via POV. Lenin Juarez is a 76 year old male admitted on 11/10/2016 for respiratory distress and plural effusion. Per MD pt is medically improved. Pt IV abx discontinued. SW met with pt and pt at bedside to confirm discharge plan and assess for any unmet needs, SW role explained and discharge planning checklist provided. Pt lives in [place] with his in a one level home and drives. Pt has a cane and walker but only uses them for long distances outside of the home. Pt uses 2-3L of oxygen at baseline through [facility] [place]. Pt has had [facility] PT and RN in the past after a back surgery. Pt does not have SNF hx, LTC insurance or VA benefits. Pt has DPOA/AD completed, SW requested a copy when possible. Pt has been independent with self care during this hospitalization, MD does not identify any concerns with capacity for self care. Pt to transport pt home when medically ready. Pt and pt deny any other needs. No other discharge needs identified. Plan: Per pt is medically ready to discharge home via POV. Pt and pt deny any other needs. No other discharge needs identified. MASOUD Ragland Addendum: 11/12/16 at 1443 by JANIS GABRIEL Amended: Links added.
--- NOTE | 2016-11-12 16:38 | NUR ---
spiritual care: pt request (late entry) conversational visit. 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 pt anticipating discharge and declined eucharistic visitor, appreciative of spir. care.
--- NOTE | 2016-11-12 17:33 | PCM.DC.MED ---
Discharge Summary Date of Service Nov 12, 2016 Dates of Hospitalization Date of Hospital Admission Nov 10, 2016 at 21:14 Date of Discharge: Nov 12, 2016 Providers: Admitting Physician: Eli Marshall DO Primary Care Physician: Oleg Broderick MD Attending Physician: Taylor Feliz DO Diagnosis at Time of Discharge Diagnosis at Time of Discharge Acute hypoxic respiratory failure, present on admission. Improving. Pleural effusion, present on admission, acute on chronic, resolved. Acute hyponatremia, present on admission. Active. Crohn's disease, present on admission. Stable. Hypothyroidism, present on admission. Stable. BPH, present on admission. Stable. . GERD, present on admission. Stable. Consultations Oncology: Dr. Whitfield Pulmonology: Dr. Deal Procedures XRay, CTs & MRIs X-RAY CHEST ONE VIEW, PORTABLE IMPRESSION: 1. No complication following thoracentesis. 2. Moderate diffuse pneumonia. Follow up plain films of the chest are recommended to ensure resolution, and to exclude underlying or central malignancy. Dictated by: Taran Mathews M.D. on 11/11/2016 at 13:03 Approved by: Taran Mathews M.D. on 11/11/2016 at 13:04 CT ANGIO CHEST PULMONARY EMBOLISM IMPRESSION: 1. No evidence for central pulmonary embolism. 2. Large suprahilar mass consistent with lung cancer. 3. Slight worsening of pulmonary metastases. 4. Slight worsening of mediastinal and bilateral hilar alek metastases. 5. Moderate left pleural effusion. 6. Small pericardial effusion. 7. Numerous lytic and blastic bone lesions consistent with osseous metastases. 8. Cholelithiasis. Dictated by: Rodri Ferrell M.D. on 11/10/2016 at 20:03 Approved by: Rodri Ferrell M.D. on 11/10/2016 at 20:26 X-RAY CHEST ONE VIEW, PORTABLE IMPRESSION: 1. Small left pleural effusion with left basilar consolidation or atelectasis. 2. Left suprahilar mass. 3. Possible right lower lung nodule. 4. Bilateral interstitial infiltrates suggest mild pulmonary edema or interstitial pneumonia. Dictated by: Rodri Ferrell M.D. on 11/10/2016 at 18:22 . ECG 12 Lead EKG: Normal sinus rhythm, heart rate 73, low-voltage throughout precordial leads , normal intervals, poor R-wave progression, no pathological Q waves or acute ischemic changes such as ST elevation or depression . 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 He was admitted to the hospital for possible pneumonia, hyponatremia, and a Left pleural effusion. He was started on IV Zosyn and levoquin for possible pneumonia however after further testing is found that patient did not have pneumonia. Pt was also started on high dose steroids (125mg IV Q6hrs). pt remained short of breath requiring 5-6L of O2 until 11/11 when a thoracentesis was done which removed approx. 1.25 L of serous fluid. Fluid analysis showed minimal WBC and PMNs. Subsequently the pt began breathing better and his oxygen was able to reduce back to baseline (3L). Pt was feeling much better at this point and was discharged once hyponatremia was corrected sufficiently. Patient was discharged home with a long steroid taper only the patient no longer needs antibiotics. PCP is Dr Broderick. Oncologist is Dr. Whitfield. Pulmonology, Dr. Deal . 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 Acute post-obstructive pneumonia with left parapneumonic effusion, present on admission. Improved. - Patient has a stable Left pleural effusion with CT comparison in July 2016. - Ordered complete pneumonia workup including: Legionella and strep pneumoniae urine antigens, respiratory viral PCR, sputum gram stain and culture, and blood cultures 2, negative. - Continue albuterol and other inhalers as needed for shortness of breath. - Continue supplemental oxygen - 40mg Prednisone Q12H for 1 week. Then 40 mg prednisone daily for 2 weeks. Follow up with primary care for continued taper. - Left sided Thoracentesis 11/11/16 13:30, with 1250 ml clear yellow fluid yielded, Minimal WBC and PMNs. Acute hypoxic respiratory failure, present on admission. Improving. - Secondary to post obstructive para pneumonic pleural effusion on the left side or continuing metastatic process. - Patient on home O2 2-3 L. Acute hyponatremia, present on admission. Resolved. 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 - Initial sodium level 123, 133 at discharge - Place the patient on a daily 2 L fluid restriction. - Received 1L of NS in the ER. No other fluid hydration was ordered as the patient has a parapneumonic effusion and worsening dyspnea. Chronic problems: Crohn's disease, present on admission. Stable. - Thought to be in remission. - Continue Culturelle daily. Hypothyroidism, present on admission. Stable. - Continue levothyroxine 50 g daily. BPH, present on admission. Stable. - Continue doxazosin 2 mg twice a day. GERD, present on admission. Stable. - Ordered famotidine 20 mg twice a day. Exam Vital Signs (Last) Date Time Temp Pulse Resp B/P Pulse Ox O2 Delivery O2 Flow Rate FiO2 11/12/16 11:29 78 24 91 Nasal Cannula 3.00 11/12/16 07:55 36.5 148/79 Exam General: Thin elderly male sitting in bed, in mild distress, well-developed, appropriate interactive. HEENT: Normocephalic, atraumatic. External ears without defect. Pupils equal, round, and reactive to light. Anicteric sclerae, moist conjunctivae, and no lid lag. Neck: Supple with full range of motion. No jugular venous distension. No bruits. No lymphadenopathy or thyromegaly. Cardiovascular: regular rate and rhythm with no murmurs, rubs, or gallops appreciated. Pulmonary: Scattered wheeze with crackles bilaterally. Abdomen: Soft, nontender, nondistended, bowel sounds present. No hepatosplenomegaly or masses appreciated. Extremities: No clubbing, cyanosis, or edema. Skin: Normal temperature, turgor, and texture; no rash, ulcers, or subcutaneous nodules appreciated. Neurological: Cranial nerves grossly intact. Normal muscle strength, tone, and bulk. Coordination, and sensory function within normal limits. Known gait impairment with use of FWW. Psychiatric: Normal mood and affect. Alert and oriented to person, place, and time. . Test 11/10/16 00:00 11/10/16 18:00 11/10/16 21:04 11/11/16 02:45 Urine Legionella pneumophilia Ag Negative (Negative) Troponin T < 0.010ug/L (0.0-0.011) Pro-B-Type Natriuretic Peptide 97.48pg/mL (0-486) Hold Benedict Top Tube Received (Received) Urine Color Yellow (YELLOW) Urine Appearance Clear (CLEAR,HAZY) Urine pH 5.5 (5.0-8.0) Urine Specific [place] 1.005 (1.003-1.035) Urine Protein Negativemg/dL (NEG,TRACE) Urine Glucose (UA) Negativemg/dL (NEGATIVE) Urine Ketones Negativemg/dL (NEGATIVE) Urine Occult Blood Moderate (NEGATIVE) Urine Nitrite Negative (NEGATIVE) Urine Bilirubin Negative (NEGATIVE) Urine Urobilinogen Normalmg/dL (NORMAL) Urine Leukocyte Esterase Negative (NEGATIVE) Urine RBC >50/hpf (0-2) Urine WBC 0-5/hpf (0-5) Urine Epithelial Cells Occasional/hpf (NONE-MOD) Urine Crystals None seen (NONE SEEN) Urine Bacteria Few/hpf (NONE-FEW) Urine Hyaline Casts None/lpf (NONE) Urine Granular Casts None seen (NONE SEEN) Urine Waxy Casts None seen (NONE SEEN) Urine Red Blood Cell Casts None seen (NONE SEEN) Urine White Blood Cell Casts None seen (NONE SEEN) Urine Mucus None seen (None Seen) Urine Trichomonas None seen (NONE SEEN) Urine Yeast None (NONE SEEN) Urinalysis Comment None Urine Culture Reflexed Not indicated Procalcitonin 0.12ng/mL (0.00-0.08) Test 11/11/16 10:08 11/11/16 12:04 11/12/16 08:55 Prothrombin Time 10.1sec (8.1-12.5) Prothromb Time International Ratio 0.95ratio Body Fluid Source Pleural fluid Body Fluid Color Straw (Clear) Body Fluid Appearance Clear Body Fluid WBC 168/mm3 Body Fluid RBC 325/mm3 Body Fluid Polynuclear WBCs 6% Body Fluid Lymphocytes 66% Body Fluid Monocytes 28% Body Fluid Eosinophils 0% Body Fluid Basophils 0% Body Fluid Lactate Dehydrogenase 143U/L Pleural Fluid Total Protein 4g/dL Pleural Fluid Glucose 159mg/dL White Blood Count 14.9th/mm3 (3.8-10.1) Red Blood Count 4.24mil/mm3 (4.40-5.80) Hemoglobin 13.1g/dL (13.8-17.2) Hematocrit 38.9% (41.0-50.0) Mean Corpuscular Volume 91.7fL (81-100) Mean Corpuscular Hemoglobin 30.9pg (27.0-35.0) Mean Corpuscular Hemoglobin Concent 33.7% (32.0-37.0) Red Cell Distribution Width 20.1% (12.3-15.4) Platelet Count 173bil/L (150-400) Neutrophils (%) (Auto) 86.7% (40-74) Lymphocytes (%) (Auto) 6.8% (14-46) Monocytes (%) (Auto) 5.9% (4-12) Eosinophils (%) (Auto) 0% (0-5) Basophils (%) (Auto) 0.1% (0-3) Sodium Level 132mEq/L (134-144) Potassium Level 4.2mEq/L (3.5-5.2) Chloride Level 90mEq/L (97-108) Carbon Dioxide Level 26mmol/L (18-29) Blood Urea Nitrogen 19mg/dL (8-27) Creatinine 0.66mg/dL (0.76-1.27) Estimat Glomerular Filtration Rate 124mL/min (>59) Glucose Level 178mg/dL (60-99) Lactic Acid Level 2.8mmol/L (0.4-2.0) Calcium Level 8.8mg/dL (8.5-10.1) Magnesium Level 1.9mg/dL (1.6-2.6) Total Bilirubin 0.5mg/dL (0.0-1.2) Aspartate Amino Transf (AST/SGOT) 16U/L (0-50) Alanine Aminotransferase (ALT/SGPT) 13U/L (0-44) Alkaline Phosphatase 110U/L (25-160) Total Protein 5.7g/dL (6.4-8.4) Albumin 3.4g/dL (3.4-5.0) Microbiology Results Blood cultures 2 negative . Discharge Medications Discharge Medications Acetaminophen (Acetaminophen) 500 Mg Tablet 1,000 MG PO BIDWM (Reported) Cholecalciferol (Vitamin D3) (Vitamin D) 1,000 Unit Capsule 1,000 UNIT PO QAM ( Reported) Cyanocobalamin (Cyanocobalamin Injection) 1,000 Mcg/1 Ml Vial 1,000 MCG IM Monthly (Reported) Doxazosin Mesylate (Doxazosin Mesylate) 2 Mg Tablet 2 MG PO BID (Reported) L. Rhamnosus GG/Inulin (Culturelle Chewable Tablet) 10 Billion Cell-200 Mg Tab.chew 1 EACH PO QAM (Reported) Levothyroxine (Levothyroxine) 50 Mcg Tablet 50 MCG PO QAM (Reported) Multivitamin (Multivitamins) 1 Each Capsule 1 EACH PO QAM (Reported) Pembrolizumab (Keytruda) 100 Mg/4 Ml (25 Mg/Ml) Vial 200 MG IV [id number] (Reported ) Prednisone (PredniSONE) 20 Mg Tablet 20 MG PO DAILY Prescribed by: UMESH DE LEON, Ranitidine (Ranitidine) 300 Mg Capsule 300 MG PO BIDWM (Reported) As needed Acetaminophen/Diphenhydramine (Tylenol Pm Ex-Strength Caplet) 500 Mg-25 Mg Tablet 2 TAB PO HS PRN PRN For Pain (Reported) Albuterol HFA (Proair HFA) 8.5 Gm Hfa.aer.ad 2 PUFFS INHALATION Q4H PRN PRN For Shortness of Breath (Reported) Ondansetron ODT (Ondansetron ODT) 8 Mg Tab.rapdis 8 MG PO Q8H PRN PRN For Nausea /Vomiting (Reported) Durable Medical Equipment ([Oxygen]) (Reported) (DME) Additional med instructions we are going to do a prednisone taper: 40mg (two pills) twice per day for 1 week then 40mg (two pills) once per day for 2 weeks then 20mg once per day Followup Plan Follow-up plan follow up with dr. Broderick within one week. follow up with dr. Whitfield within 2 weeks Discharge Diet: No restrictions Discharge Activity: No restrictions Patient Instructions If your shortness of breath returns please call Dr. Whitfield first for further instructions. If you are unable to contact Dr. Tamayo then please call your primary care doctor. Follow-up Provider: Oleg Broderick MD Follow-up with PCP in: 2 weeks Provider: Paramjit Whitfield MD Follow-up in: 2 weeks Time spent Greater than 35 min Attending Statement The patient was seen and examined together with Dr. De Leon on 11/12/16 and I have added additional information to the note above. copies to: Oleg Broderick MD; Paramjit Whitfield MD, Adam J DO Nov 12, 2016 16:52 Taylor Feliz DO Nov 13, 2016 13:23 Umesh De Leon DO Nov 12, 2016 16:52
--- NOTE | 2016-11-15 11:09 | PATH ---
SURGICAL PATHOLOGY Attending Physician:Rachel Deal MD CASE STATUS: Signed Out PATIENT NAME: SURY GROSS PID: [id number] : 1940 DATE COLLECTED:11/11/2016 00:00 SPECIMEN: Left Pleural Fluid CLINICAL HISTORY: Left Pleural Fluid ICD-10 code not given FINAL DIAGNOSIS: Pleural Fluid, For Cytology: Positive for malignant cells. See comment. ICD10: J91.0 NOTE: A distinctly abnormal cell population is present in a background of mesothelial cells, lymphocytes, and neutrophils. The morphology is consistent with adenocarcinoma. As part of routine quality control inspector, Dr. Monte and Dr. Staples also reviewed this case and agree with the diagnosis. Dr. Barakat called Dr. Deal on 11/14/2016 to discuss the findings. GROSS DESCRIPTION: Received fresh on 11/13/2016 is approximately 30 cc of clear yellow fluid. Prepared are one cell block and one Cytospin slide. Vo ICD-9 CODES: CPT CODES: 1: 70817, 39801, 67400 Electronically Signed Out Ivonne Barakat MD [facility] Pathology [facility] [address], [place] [address] Technical component performed at [facility], [address] [place] [address] Ave[address], [place], [address]
== END 2016-11-12 12:50 | disposition home or self-care (01) | DRG 189 ==
LOC: SED 17:19 → PCC 21:14
PROVIDERS: ADMIT Internal Medicine; ATTEND Neuromusculoskeletal Medicine & OMM
PROC: 0W9B3ZX Drainage of Left Pleural Cavity, Percutaneous Approach, Diagnostic (ICD-10-PCS; principal; 2016-11-11)
DX: J96.21 Acute and chronic respiratory failure with hypoxia (principal); J91.8 Pleural effusion in other conditions classified elsewhere; E22.2 Syndrome of inappropriate secretion of antidiuretic hormone; C79.51 Secondary malignant neoplasm of bone; C34.12 Malignant neoplasm of upper lobe, left bronchus or lung; K50.90 Crohn's disease, unspecified, without complications; J98.09 Other diseases of bronchus, not elsewhere classified; E03.9 Hypothyroidism, unspecified; N40.0 Benign prostatic hyperplasia without lower urinary tract symptoms; K21.9 Gastro-esophageal reflux disease without esophagitis; Z88.0 Allergy status to penicillin; Z87.891 Personal history of nicotine dependence; Z79.51 Long term (current) use of inhaled steroids; Z99.81 Dependence on supplemental oxygen

== ENCOUNTER 2016-11-24 03:37 | Emergency (ER) | payer MEDICARE, OTHER ==
[~2016-11-24] VITALS: Ht 160 cm; Wt 54.1 kg
[~2016-11-24 03:37] MED LIST changes: +ACET-171 PO; +CYA1000I IM; -CYAN10008 PO; +L. R1TAB PO; +PEMB100V IV; -PRE10 PO; +PRE20 PO; -VITAMIN B IM; -tumeric PEG
[2016-11-24 03:48] VITALS: BP 136/68; PULSE 76; RESP 21; O2SAT 92
--- NOTE | 2016-11-24 04:10 | ED.REPORT ---
HPI-Dyspnea / Wheezing Date of Service Nov 24, 2016 ED Provider: Dr. 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 Patient recently had the left lobe pumped two weeks ago because of recurrent pleural effusion. The patient reports similar dyspnea during previous episodes that required thoracentesis. He denies any chest pain. Patient is not currently on any blood thinners. Nursing Notes Stated Complaint: DIFFICULTY BREATHING Chief Complaint: Respiratory Complaints Nursing Notes Reviewed: Yes Allergies: Coded Allergies: meperidine (Verified Allergy, Severe, BAD REACTION, high heart rate, ) azathioprine (Verified Allergy, Unknown, 11/24/16) diazepam (Verified Allergy, Unknown, 11/24/16) aspirin (Verified Adverse Reaction, Severe, affects stomach, 11/24/16) lactose (Verified Adverse Reaction, Mild, UNSPECIFIED, 11/24/16) Uncoded Allergies: imuran (Allergy, Severe, 11/07/04) Scheduled Acetaminophen (Acetaminophen) 500 Mg Tablet 1,000 MG PO BIDWM Cholecalciferol (Vitamin D3) (Vitamin D) 1,000 Unit Capsule 1,000 UNIT PO QAM Cyanocobalamin (Cyanocobalamin Injection) 1,000 Mcg/1 Ml Vial 1,000 MCG IM Monthly Doxazosin Mesylate (Doxazosin Mesylate) 2 Mg Tablet 2 MG PO BID L. Rhamnosus GG/Inulin (Culturelle Chewable Tablet) 10 Billion Cell-200 Mg Tab.chew 1 EACH PO QAM Levothyroxine (Levothyroxine) 50 Mcg Tablet 50 MCG PO QAM Multivitamin (Multivitamins) 1 Each Capsule 1 EACH PO QAM Pembrolizumab (Keytruda) 100 Mg/4 Ml (25 Mg/Ml) Vial 200 MG IV [id number] Prednisone (PredniSONE) 20 Mg Tablet 20 MG PO DAILY Ranitidine (Ranitidine) 300 Mg Capsule 300 MG PO BIDWM Scheduled PRN Acetaminophen/Diphenhydramine (Tylenol Pm Ex-Strength Caplet) 500 Mg-25 Mg Tablet 2 TAB PO HS PRN PRN For Pain Albuterol HFA (Proair HFA) 8.5 Gm Hfa.aer.ad 2 PUFFS INHALATION Q4H PRN PRN For Shortness of Breath Ondansetron ODT (Ondansetron ODT) 8 Mg Tab.rapdis 8 MG PO Q8H PRN PRN For Nausea /Vomiting General Time Seen by MD: 04:09 Chief Complaint Shortness of breath Hx Obtained From: Patient Arrived By: Walk-in Sudden in Onset?: No Onset Occurred: 1 - 4 hours ago Symptom Duration: Since onset Location: : None Associated with: Reports: Cough, Denies: Chest pain Pertinent Negative: Pt denies other symptoms Recent Healthcare: Recent doctor visit Past Medical History Past Medical History 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 father - "had heart problems" Smoking History Former Smoker Social History Alcohol Use: "Social" Drug Use: Denies drug use Other Social History: Good social support, Local resident Ambulatory Status Independent Review of Systems Respiratory: Reports: Dyspnea on exertion, Non-productive cough, Shortness of breath Cardiovascular: Denies: Chest pain Complete sys rev & neg: except as marked. Physical Exam Initial Vital Signs Vital Signs (First) Date Time Temp Pulse Resp B/P Pulse Ox O2 Delivery O2 Flow Rate FiO2 11/24/16 03:48 36.5 76 21 136/68 92 Nasal Cannula 4.5 Initial VS: Reviewed, Vital signs normal Head / Eyes: Atraumatic, Normocephalic, PERRL Extremities: Vascular intact, Neuro intact, No swelling, No tenderness Skin: Warm, Dry, No cyanosis Neurologic: Alert, Oriented, Nonfocal Psychiatric: Mood/affect normal, Behavior normal, Normal thought content General/Constitutional: Awake, Alert, No acute distress Neck: Atraumatic, Supple Respiratory / Chest: Atraumatic, No respiratory distress Diminished Breath Sounds: Positive: Decreased L Cardiovascular: Heart rate NL, Regular rhythm, Heart sounds NL Abdomen: Atraumatic, Soft Interpretation & Diagnostics Lab Results Interpretation Result Diagram: 11/24/16 0400 11/24/16 0400 Test 11/24/16 04:00 White Blood Count 9.9th/mm3 (3.8-10.1) Red Blood Count 4.28mil/mm3 (4.40-5.80) Hemoglobin 13.4g/dL (13.8-17.2) Hematocrit 40.6% (41.0-50.0) Mean Corpuscular Volume 94.9fL (81-100) Mean Corpuscular Hemoglobin 31.3pg (27.0-35.0) Mean Corpuscular Hemoglobin Concent 33.0% (32.0-37.0) Red Cell Distribution Width 19.8% (12.3-15.4) Platelet Count 192bil/L (150-400) Neutrophils (%) (Auto) 73% (40-74) Lymphocytes (%) (Auto) 23% (14-46) Monocytes (%) (Auto) 4% (4-12) Eosinophils (%) (Auto) 0% (0-5) Basophils (%) (Auto) 0% (0-3) Hematology Comments Prothrombin Time 10.2sec (8.1-12.5) Prothromb Time International Ratio 0.95ratio Sodium Level 134mEq/L (134-144) Potassium Level 3.7mEq/L (3.5-5.2) Chloride Level 93mEq/L (97-108) Carbon Dioxide Level 25mmol/L (18-29) Blood Urea Nitrogen 14mg/dL (8-27) Creatinine 0.69mg/dL (0.76-1.27) Estimat Glomerular Filtration Rate 118mL/min (>59) Glucose Level 95mg/dL (60-99) Calcium Level 8.7mg/dL (8.5-10.1) Total Bilirubin 0.5mg/dL (0.0-1.2) Aspartate Amino Transf (AST/SGOT) 19U/L (0-50) Alanine Aminotransferase (ALT/SGPT) 18U/L (0-44) Alkaline Phosphatase 122U/L (25-160) Troponin T 0.010ug/L (0.0-0.011) Pro-B-Type Natriuretic Peptide 114.9pg/mL (0-486) Total Protein 5.6g/dL (6.4-8.4) Albumin 3.4g/dL (3.4-5.0) ECG Interpretation ECG Interpretation: Sinus rhythm Rate 66 bpm Low voltage, extremity and precordial leads Anteroseptal infarct, old Time: 04:56 Interpreted by: ED physician Re-Eval/Medical Decision Med Decision/Clinical Course 76-year-old with metastatic lung cancer presents with shortness of breath secondary to recurrent pleural effusion. He is scheduled for a thoracentesis November 28 but does not feel that he can wait that long. Initial workup was done by me and his care is now being turned over at change of shift to Dr. Mckeon to arrange thoracentesis Counseled Regarding: Diagnosis, Lab results Discharge & Departure Shift Change Sign-Out Patient Care Transferred: Yes Discussed Complaint(s): Yes Laboratory Evaluation: Lab evaluation discussed Imaging Studies: Done, wet read by me Procedures: Results discussed Dr. Mckeon Discharge Condition All VS Reviewed: Yes Condition: Stable Referrals: Oleg Broderick MD (PCP) Care Transferred to: Dr. Mckeon Care Transferred at: 06:00 Scribe Attestation Portions of this note were transcribed by Nai Arciniega. I, Dr. Barr personally performed the history, physical exam and medical decision-making; I reviewed and confirmed the accuracy of the information in the transcribed note. copies to: Oleg Broderick MD, Marco Gutierrez MD Nov 24, 2016 04:10 NAI ARCINIEGA Nov 24, 2016 04:17
[2016-11-24 04:15] LABS: Mean Corpuscular Hemoglobin 31.3 pg (27.0-35.0); Mean Corpuscular Volume 94.9 fL (81-100); Platelet Count 192 bil/L (150-400)
[2016-11-24 04:31] LABS: INR 0.95 ratio
[2016-11-24 04:34] LABS: TROPONIN T 0.01 ug/L (0.0-0.011)
[2016-11-24 04:36] LABS: BASOPHILS % (AUTO) 0 % (0-3); EOSINOPHILS % (AUTO) 0 % (0-5); MONOCYTES % (AUTO) 4 % (4-12); NEUTROPHILS % (AUTO) 73 % (40-74)
[2016-11-24 06:29] VITALS: BP 131/67; PULSE 69; RESP 16; O2SAT 95
--- NOTE | 2016-11-24 07:56 | DRSVH ---
PROCEDURE: X-RAY CHEST ONE VIEW, PORTABLE ([id number]) INDICATIONS: dyspnea TECHNIQUE: One view of the chest was acquired. COMPARISON: [facility], CR, XR CHEST 2VW, 11/23/2016, 13:15. [facility], CR, XR CHEST 1VW (PORTABLE), 11/11/2016, 12:31. FINDINGS: Surgical changes and devices: From a right-sided approach extends to the origin of the superior vena cava area, to right of midline . Lungs and pleura: No pneumothorax. Lungs are abnormal with a general pattern of pulmonary edema, an d dense consolidation at the left mid and lower lung. Mediastinum: Mediastinal contours appear normal. Heart size is normal. Bones and chest wall: No suspicious bony lesions. Overlying soft tissues appear unremarkable. IMPRESSION: Pulmonary edema pattern, and dense consolidation left mid and lower lung. Presence or ab sence of pleural effusion is not established by this plain film given the density of the airspace dis ease on the left. CT scanning may be warranted, but if pleural effusion assessment is clinically dominguez ired unilateral left pleural ultrasound could be performed. Dictated by: Farhan Cano M.D. on 11/24/2016 at 7:52 Approved by: Farhan Cano M.D. on 11/24/2016 at 7:54
--- NOTE | 2016-11-24 09:36 | DRSVH ---
PROCEDURE: US CHEST, LIMITED ([id number]) INDICATIONS: effusion TECHNIQUE: Real-time focused scanning was performed of the abdomen, with image documentation. COMPARISON: [facility], CR, XR CHEST 1VW (PORTABLE), 11/24/2016, 4:08. [facility], CR, XR CHEST 2VW, 11/23/2016, 13:15. [facility], CR, XR CHEST 1VW (PORTABLE), 11/11, 12:31. [facility], CT, CT ANGIO CHEST PE, 11/10/2016, 19:32. [facility], CR, XR CHEST 1VW (PORTABLE), 11/10/2016, 17:31. [facility], [place], ABDOMEN LTD, 7, 8:52. FINDINGS: There is a scant right effusion, and a moderately large subpulmonic left effusion located 1 .9 cm deep to the skin surface. IMPRESSION: Moderately large subpulmonic left effusion. No internal septation seen. Dictated by: Farhan Cano M.D. on 11/24/2016 at 9:30 Approved by: Farhan Cano M.D. on 11/24/2016 at 9:34
[2016-11-24 09:43] VITALS: BP 129/86; PULSE 92; RESP 22; O2SAT 92
[2016-11-24] MEDS ORDERED: PRE10 PO (14:12)
[2016-11-24] MEDS ORDERED: oxygen NASAL (14:12)
[2016-11-24] MEDS ORDERED: TRAM50TA2 PO (18:30)
== END 2016-11-24 09:45 | disposition home or self-care (01) ==
LOC: SED 03:37
DX: J90 Pleural effusion, not elsewhere classified (principal); C79.51 Secondary malignant neoplasm of bone; C34.90 Malignant neoplasm of unspecified part of unspecified bronchus or lung; K50.90 Crohn's disease, unspecified, without complications; K21.9 Gastro-esophageal reflux disease without esophagitis; E03.9 Hypothyroidism, unspecified; Z87.891 Personal history of nicotine dependence; Z92.21 Personal history of antineoplastic chemotherapy; Z88.5 Allergy status to narcotic agent; Z88.8 Allergy status to other drugs, medicaments and biological substances

== ENCOUNTER 2016-11-24 12:38 | Inpatient (IN) | payer MEDICARE, OTHER ==
[~2016-11-24] VITALS: Ht 160 cm; Wt 53.0 kg
[2016-11-24 12:47] VITALS: BP 125/70; PULSE 79; RESP 18; O2SAT 87
--- NOTE | 2016-11-24 13:37 | ED.REPORT ---
HPI-Dyspnea / Wheezing Date of Service Nov 24, 2016 ED Provider: Princess Mckeon MD The pt is a 76 y/o male w/ a hx of lung cancer presenting to the ED because he would like to be admitted. He was seen here in the ED earlier this morning, was discharged, but would like to be admitted for a thoracentesis. Nursing Notes Stated Complaint: FLUID ON LUNGS Chief Complaint: Respiratory Complaints Nursing Notes Reviewed: Yes Allergies: Coded Allergies: meperidine (Verified Allergy, Severe, BAD REACTION, high heart rate, ) azathioprine (Verified Allergy, Unknown, 11/24/16) diazepam (Verified Allergy, Unknown, 11/24/16) aspirin (Verified Adverse Reaction, Severe, affects stomach, 11/24/16) lactose (Verified Adverse Reaction, Mild, UNSPECIFIED, 11/24/16) Uncoded Allergies: imuran (Allergy, Severe, 11/07/04) Scheduled Acetaminophen (Acetaminophen) 500 Mg Tablet 1,000 MG PO BIDWM Cholecalciferol (Vitamin D3) (Vitamin D) 1,000 Unit Capsule 1,000 UNIT PO QAM Cyanocobalamin (Cyanocobalamin Injection) 1,000 Mcg/1 Ml Vial 1,000 MCG IM Monthly Doxazosin Mesylate (Doxazosin Mesylate) 2 Mg Tablet 2 MG PO BID L. Rhamnosus GG/Inulin (Culturelle Chewable Tablet) 10 Billion Cell-200 Mg Tab.chew 1 EACH PO QAM Levothyroxine (Levothyroxine) 50 Mcg Tablet 50 MCG PO QAM Multivitamin (Multivitamins) 1 Each Capsule 1 EACH PO QAM Pembrolizumab (Keytruda) 100 Mg/4 Ml (25 Mg/Ml) Vial 200 MG IV [id number] Prednisone (PredniSONE) 10 Mg Tablet 10 MG PO DAILY Ranitidine (Ranitidine) 300 Mg Capsule 300 MG PO BIDWM Scheduled PRN Acetaminophen/Diphenhydramine (Tylenol Pm Ex-Strength Caplet) 500 Mg-25 Mg Tablet 2 TAB PO HS PRN PRN For Pain Ondansetron ODT (Ondansetron ODT) 8 Mg Tab.rapdis 8 MG PO Q8H PRN PRN For Nausea /Vomiting Miscellaneous Medications ([oxygen]) 3-4 L NASAL General Time Seen by MD: 13:37 Chief Complaint Other (desire to be admitted ) Hx Obtained From: Patient Arrived By: Walk-in Sudden in Onset?: Yes Symptom Duration: Since onset Recent Healthcare: No recent hospitalization, Recent doctor visit Similar Sx Previous: Yes Past Medical History Past Medical History 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 father - "had heart problems" Smoking History Former Smoker Social History Alcohol Use: "Social" Drug Use: Denies drug use Other Social History: Good social support, Local resident Ambulatory Status Independent Review of Systems Constitutional: Denies: Chills, Fever Complete sys rev & neg: except as marked. Physical Exam Initial Vital Signs Vital Signs (First) Date Time Temp Pulse Resp B/P Pulse Ox O2 Delivery O2 Flow Rate FiO2 11/24/16 12:47 79 18 125/70 87 Nasal Cannula 6 Initial VS: Reviewed, Vital signs normal Head / Eyes: Atraumatic, Normocephalic, PERRL ENT: Mucous membranes moist, Conjunctiva normal, No scleral icterus Extremities: Vascular intact, Neuro intact, No swelling, No tenderness Skin: Warm, Dry, No cyanosis Neurologic: Alert, Oriented, Nonfocal Psychiatric: Mood/affect normal, Behavior normal, Normal thought content General/Constitutional: Awake, Alert Neck: Atraumatic, Supple, Full range of motion Diminished Breath Sounds: Positive: Absent L Cardiovascular: Heart rate NL, Regular rhythm, Heart sounds NL Re-Eval/Medical Decision Med Decision/Clinical Course The patient presented earlier with worsening shortness of breath recannulation of his pleural effusion, he wanted to go home is it was offered to have the drain his pleural effusion and he declined. He returned because he is unable to stay at home and his oxygen with activity and on 2 L nasal cannula was 87%. The patient's does not have any infectious symptoms but there is a question of increasing consolidation on his x-ray and he has had postobstructive pneumonia. In speaking with the admitting physician Dr. Ruy Mayo she wanted him covered for hospital-acquired pneumonia. The patient does have a leukocytosis so this is not unreasonable. The patient does not have other criteria that are concerning for sepsis such as fever or tachycardia. Source of Hx: Old records Re-Evaluation/Progress : Time of Eval: 14:02 Re-Evaluation/Progress Note: Pt rechecked. Informed pt of need for admission. Pt understands and agrees with plan for admission. All questions addressed. Consultation : Referral / Consult Name: Dianelys Hensley MD Call Returned at: 15:03 Staff Technologist: Will see patient, Agrees with eval, Agrees with plan, Accepts admit Counseled Regarding: Diagnosis, Lab results, Need for admission Discharge & Departure Impression: Primary Impression: Lung cancer Laterality: unspecified laterality Lung location: unspecified part of lung Qualified Code: C34.90 - Malignant neoplasm of unspecified part of unspecified bronchus or lung Additional Impressions: Hypoxia Pleural effusion Disposition: ADMITTED TO HOSPITAL Discharge Condition All VS Reviewed: Yes Condition: Stable Referrals: Oleg Broderick MD (PCP) Scribe Attestation Portions of this note were transcribed by Serge Anthony. I, Dr. Mckeon personally performed the history, physical exam and medical decision-making; I reviewed and confirmed the accuracy of the information in the transcribed note. copies to: Oleg Broderick MD, Jena M MD Nov 24, 2016 13:37 Serge Anthony Nov 24, 2016 14:03
[2016-11-24] MEDS ORDERED: oxygen NASAL (14:12)
[2016-11-24] MEDS ORDERED: PRE10 PO (14:12)
[2016-11-24] MEDS ORDERED: Vancomycin Dose per Pharmacist XX ONE (15:25)
[2016-11-24] MEDS ORDERED: Piperacillin-Tazo 3.375 Gm Inj 3.375 GM in Dextrose 5% Minibag Plus 50 ML IV ONE (15:25)
[2016-11-24] MEDS ORDERED: levoFLOXacin Inj 750 MG in IV Premix 1 EACH IV ONE (15:25)
[2016-11-24] MEDS ORDERED: Alum-Mag Hydrox-Simeth 30 mL Suspension PO PRN ×2 (15:30→16:15)
[2016-11-24] MEDS ORDERED: Ondansetron 2 mg/mL 2 mL Inj IVPUSH PRN (15:30)
[2016-11-24] MEDS ORDERED: Vancomycin Inj 1,000 MG in IV Premix 1 EACH IV ONE (15:40)
[2016-11-24] MEDS ORDERED: Polyethylene Glycol (PEG) 17 Gm Powder PO PRN (16:15)
--- NOTE | 2016-11-24 16:45 | NUR ---
admit Pt arrived on unit from ED alert and oriented X4 with . VS WNL except for oxygen demands: 5L NC at 92% Sp02. Pt stated that he uses 3-4L home o2. pt stated that he has chronic back pain and shoulder pain but is sensitive to narcs so will bring in prescription bottle of pain RX. Admit completed. Pt is steady of feet but stated that he does have RICKS and must sleep with HOB up. CTM
--- NOTE | 2016-11-24 17:16 | PCM.HPMED ---
Subjective Date of Service Nov 24, 2016 Primary Provider: Admitting Physician: Dianelys Hensley MD Primary Care Physician: Oleg Broderick MD Attending Physician: Dianelys Hensley MD Admit Status: From the Emergency Department, Full Admit, Remote Telemetry Chief Complaint: Increasing shortness of breath and hypoxia History of Present Illness: 76-year-old male with a history of lung carcinoma followed by Dr. Paramjit Whitfield. He has T2 N2 M1 adenocarcinoma left upper lung. 7 imaging shows progressive disease. Recent scheduled moderately large left pleural effusion which was symptomatic and the patient underwent therapeutic and diagnostic left thoracentesis this was done about 2 weeks ago. Findings were positive for malignant effusions. Vision is so far completed 2 cycles of pembrolizumab 200 mg milligrams IV patient assistance this was done and he has become more dyspneic and in the emergency room was found to require more O2 6 L nasal cannula. She was seen in the emergency room today early this morning and patient was given have a thoracentesis and then decided to go home. He returned again later this afternoon wishing to have it done apparently no one in the ER could do it and see Dr. Mckeon notes none of the surgeons would come on and do it at this time. His chest x-ray also suggested possible pneumonia please see report which is included below. Patient denies any fevers or chills. Not had much sputum production. Review of Systems: No nausea vomiting no chest pain or systems are negative except for as in history of present illness. Allergies Coded Allergies: meperidine (Verified Allergy, Severe, BAD REACTION, high heart rate, ) azathioprine (Verified Allergy, Unknown, 11/24/16) diazepam (Verified Allergy, Unknown, 11/24/16) aspirin (Verified Adverse Reaction, Severe, affects stomach, 11/24/16) lactose (Verified Adverse Reaction, Mild, UNSPECIFIED, 11/24/16) Home Medications Scheduled Acetaminophen (Acetaminophen) 500 Mg Tablet 1,000 MG PO BIDWM Cholecalciferol (Vitamin D3) (Vitamin D) 1,000 Unit Capsule 1,000 UNIT PO QAM Cyanocobalamin (Cyanocobalamin Injection) 1,000 Mcg/1 Ml Vial 1,000 MCG IM Monthly Doxazosin Mesylate (Doxazosin Mesylate) 2 Mg Tablet 2 MG PO BID L. Rhamnosus GG/Inulin (Culturelle Chewable Tablet) 10 Billion Cell-200 Mg Tab.chew 1 EACH PO QAM Levothyroxine (Levothyroxine) 50 Mcg Tablet 50 MCG PO QAM Multivitamin (Multivitamins) 1 Each Capsule 1 EACH PO QAM Pembrolizumab (Keytruda) 100 Mg/4 Ml (25 Mg/Ml) Vial 200 MG IV [id number] Prednisone (PredniSONE) 10 Mg Tablet 10 MG PO DAILY Ranitidine (Ranitidine) 300 Mg Capsule 300 MG PO BIDWM Scheduled PRN Acetaminophen/Diphenhydramine (Tylenol Pm Ex-Strength Caplet) 500 Mg-25 Mg Tablet 2 TAB PO HS PRN PRN For Pain Ondansetron ODT (Ondansetron ODT) 8 Mg Tab.rapdis 8 MG PO Q8H PRN PRN For Nausea /Vomiting PMH Past Medical History Past Medical History 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 father - "had heart problems" Social History Hx Alcohol Use: No Hx Substance Use: No Hx Tobacco Use: No Smoking Status: Former Smoker Living Arrangement: with Family Exam Vital Signs Vital Sign - Last Date Time Temp Pulse Resp B/P Pulse Ox O2 Delivery O2 Flow Rate FiO2 11/24/16 12:47 79 18 125/70 87 Nasal Cannula 6 Exam Constitutional elderly male small in stature in mild shortness of breath Head: Normocephalic medical Neck: No adenopathy Chest: Decreased breath sounds diffusely which is worse on the right side Abdomen: Soft nontender bowel sounds present Santosh: No pedal edema Skin: No rashes Psych: Mood and affect are appropriate Neuro: Alert and oriented 3, motor strength is intact bilaterally Lab and Diagnostics X-Rays, CTs and MRIs PROCEDURE: X-RAY CHEST ONE VIEW, PORTABLE ([id number]) INDICATIONS: dyspnea TECHNIQUE: One view of the chest was acquired. COMPARISON: [facility], CR, XR CHEST 2VW, 11/23/2016, 13:15. [facility], CR, XR CHEST 1VW (PORTABLE), 11/11/2016, 12:31. FINDINGS: Surgical changes and devices: From a right-sided approach extends to the origin of the superior vena cava area , to right of midline. Lungs and pleura: No pneumothorax. Lungs are abnormal with a general pattern of pulmonary edema, and dense consolidation at the left mid and lower lung. Mediastinum: Mediastinal contours appear normal. Heart size is normal. Bones and chest wall: No suspicious bony lesions. Overlying soft tissues appear unremarkable. IMPRESSION: Pulmonary edema pattern, and dense consolidation left mid and lower lung. Presence or absence of pleural effusion is not established by this plain film given the density of the airspace disease on the left. CT scanning may be warranted, but if pleural effusion assessment is clinically desired unilateral left pleural ultrasound could be performed. Dictated by: Farhan Cano M.D. on 11/24/2016 at 7:52 Approved by: Farhan Cano M.D. on 11/24/2016 at 7:54 PROCEDURE: US CHEST, LIMITED ([id number]) INDICATIONS: effusion TECHNIQUE: Real-time focused scanning was performed of the abdomen, with image documentation. COMPARISON: [facility], CR, XR CHEST 1VW (PORTABLE), 11/24/2016, 4: 08. [facility], CR, XR CHEST 2VW, 11/23/2016, 13:15. [facility], CR, XR CHEST 1VW (PORTABLE), 11/11/2016, 12:31. [facility] , CT, CT ANGIO CHEST PE, 11/10/2016, 19:32. [facility], CR, XR CHEST 1VW (PORTABLE), 11/10/2016, 17:31. [facility], [place], ABDOMEN LTD , 08/10/2016, 8:52. FINDINGS: There is a scant right effusion, and a moderately large subpulmonic left effusion located 1.9 cm deep to the skin surface. IMPRESSION: Moderately large subpulmonic left effusion. No internal septation seen. Dictated by: Farhan Cano M.D. on 11/24/2016 at 9:30 Approved by: Farhan Cano M.D. on 11/24/2016 at 9:34 Assessment & Plan #Recurrent malignant effusion from metastatic lung adenocarcinoma, subacute, present admission -We will order ultrasound-guided thoracentesis therapeutic -Check CT of chest with IV contrast to discern if there is also a pneumonia present as chest x-ray showed some suggestion of this and was started on IV healthcare associated pneumonia protocol -Check sputum studies and sputum PCR -Albuterol nebs when necessary #Crohn's disease, stable, chronic, present on admission -Continue with his current medication regimen from outpatient #Acute on chronic hypoxic respiratory failure, present on admission -Plan for further evaluation and treatment with ultrasound-guided thoracentesis and CT of chest to elucidate possible pneumonic infiltrate #Hypothyroidism, chronic, present on admission -Continue with his levothyroxine dosing #BPH, chronic, present on admission Continue doxazosin 2 mg by mouth twice a day #GERD, chronic, present on admission -Famotidine 20 mg by mouth twice a day #DVT prophylaxis -Subcutaneous Lovenox prophylactic #CODE STATUS -Full code after discussion with patient and Pain Evaluation: Adequate Pain Control VTE Prophylaxis: Sub-Q Enoxaparin Resuscitation Status: CPR: Attempt Resuscitation Time spent 60 minutes Dianelys Hensley MD Nov 24, 2016 17:16
[2016-11-24] MEDS ORDERED: RHAMNOSUS GG PO SCH (17:30)
[2016-11-24] MEDS ORDERED: Non-Formulary Medication (Multivitamin (Multivitamins) 1 EACH) PO SCH (17:30)
[2016-11-24] MEDS ORDERED: Non-Formulary Medication (Ranitidine 300 MG) PO SCH (17:30)
[2016-11-24] MEDS ORDERED: Non-Formulary Medication (Cholecalciferol (Vitamin D3) (Vitamin D) 1,000 UNIT) PO SCH (17:30)
[2016-11-24] MEDS ORDERED: Ondansetron 8 mg ODT Tablet PO PRN (17:30)
[2016-11-24] MEDS ORDERED: INULIN PO SCH (17:30)
[2016-11-24 17:38] VITALS: PULSE 76
[2016-11-24 17:41] VITALS: BP 133/74; PULSE 73; RESP 16; O2SAT 94
[2016-11-24] MEDS: Piperacillin-Tazo 3.375 Gm Inj 3.375 GM in Dextrose 5% Minibag Plus 50 ML IV SCH (18:07)
[2016-11-24 18:28] LABS: APPEARANCE,URINE CLEAR (CLEAR,HAZY); COLOR,URINE YELLOW (YELLOW); OCCULT BLOOD,URINE NEGATIVE (NEGATIVE); PH,URINE 5.5 (5.0-8.0); UROBILINOGEN,URINE NORMAL (NORMAL)
[2016-11-24] MEDS ORDERED: TRAM50TA2 PO (18:30)
--- NOTE | 2016-11-24 19:01 | DRSVH ---
PROCEDURE: CT CHEST WITH CONTRAST ([id number]) INDICATIONS: possible pneumonia,lung cancer TECHNIQUE: After the administration of intravenous contrast, 5 mm thick sections acquired from the pulmonary api mina to the posterior costophrenic angles. 7 mm thick coronal and sagittal MIP reformats were acquire d. For radiation dose reduction, the following was used: automated exposure control, adjustment of mA and/or kV according to patient size. COMPARISON: [facility], CR, XR CHEST 1VW (PORTABLE), 11/11/2016, 12:31. [facility], CT, CT ANGIO CHEST PE, 11/10/2016, 19:32. [facility], [place], ABDOMEN LTD, 11/24/2016, 8:30. FINDINGS: Image quality: Excellent. Lungs and pleura: No acute air space opacities again noted is a pattern of nodular infiltrative airs pace disease which may represent pneumonia but more likely in this clinical circumstance is a manifes tation of lymphangitic spread of neoplasm. Previously present bilateral pleural effusions have not si gnificantly increased in size, and small in size on the right and moderately large in size on the lef t. No pneumothorax. Central and peripheral airways are patent and normal in caliber. Mediastinum: Heart size is normal. No pericardial effusion. No mediastinal or hilar adenopathy by size criteria. Thoracic aorta and central pulmonary arteries are normal in size. Esophagus is janett l in caliber. No hiatal hernia. Bones and chest wall: No suspicious bony lesions. No vertebral body compression fractures. No new axillary or supraclavicular adenopathy by size criteria, and the moderate subcarinal and right paratr acheal adenopathy previously present 11/10/16 has not definitely enlarged. Malignant appearing conflu ent soft tissue soft tissue mass at the anterior left hilum has slightly enlarged. Thyroid gland evette ears normal. Abdomen: Visualized upper abdominal solid organs appear normal. Upper abdominal bowel loops are nor mal in caliber. IMPRESSION: Small right and moderately large left pleural effusion but unchanged from prior study . The airspace disease present with a patchy bilateral distribution greater in the perihilar re gions has an appearance suggestive of lymphangitic spread of tumor, stable over time. There has been a small interval increase in size of the confluent mass at the left perihilar lung parenchyma, consi stent with worsening malignancy. Mediastinal adenopathy is stable over time. Dictated by: Farhan Cano M.D. on 11/24/2016 at 18:47 Approved by: Farhan Cano M.D. on 11/24/2016 at 19:00
[2016-11-24 19:44] VITALS: PULSE 74; RESP 20; O2SAT 95
[2016-11-24] MEDS: Lactobacillus Rhamnosus 10 Bil Unit Capsule PO SCH (19:51)
[2016-11-24] MEDS: diphenhydrAMINE 25 mg Capsule PO SCH (21:57)
[2016-11-24] MEDS: Albuterol 2.5 mg/3 mL Inhalation Solution NEB PRN (23:37)
[2016-11-24 23:38] VITALS: PULSE 79; RESP 20; O2SAT 95
[2016-11-25] VITALS (13 sets, daily range): BP systolic 105–139; BP diastolic 65–77; PULSE 63–92; RESP 18–26; O2SAT 92–96
[2016-11-25] MEDS: Piperacillin-Tazo 3.375 Gm Inj 3.375 GM in Dextrose 5% Minibag Plus 50 ML IV SCH ×2 (00:35→10:46)
--- NOTE | 2016-11-25 03:35 | NUR ---
SOB / oxymask at night 2 x c/o sob with associated course lung sounds. After fist neb trx able to expectorate 2-3 times thick, yellow mixed with clear and white sputum reducing respiratory hunger. Called RT for second trx @03:30. Reverts to mouth breathing HS, switched from 5l NC to 6L oxymask, maintaining 93% saturation during SOB episodes.
[2016-11-25] MEDS: Albuterol 2.5 mg/3 mL Inhalation Solution NEB PRN ×4 (03:57→20:46)
[2016-11-25 05:02] LABS: Mean Corpuscular Hemoglobin 31.8 pg (27.0-35.0); Mean Corpuscular Volume 95.2 fL (81-100)
[2016-11-25 05:03] LABS: BASOPHILS % (AUTO) 0.1 % (0-3); MONOCYTES % (AUTO) 9.5 % (4-12); NEUTROPHILS % (AUTO) 76.6 % (40-74); Platelet Count 163 bil/L (150-400)
[2016-11-25] MEDS ORDERED: levoFLOXacin Inj 750 MG in IV Premix 1 EACH IV SCH (08:30)
[2016-11-25] MEDS ORDERED: _PredniSONE 10 mg Tablet PO SCH (08:30)
[2016-11-25] MEDS: Lactobacillus Rhamnosus 10 Bil Unit Capsule PO SCH (08:30)
[2016-11-25] MEDS: predniSONE 10 mg Tablet PO SCH (09:22)
[2016-11-25] MEDS ORDERED: Potassium Chloride 20 mEq SR Tablet PO ONE (10:50)
[2016-11-25 11:54] LABS: INR 0.98 ratio
--- NOTE | 2016-11-25 13:09 | DRSVH ---
PROCEDURE: X-RAY CHEST ONE VIEW, PORTABLE ([id number]) INDICATIONS: PA inspiratory TECHNIQUE: One view of the chest was acquired. COMPARISON: [facility], CT, CT CHEST W CON, 11/24/2016, 18:27. [facility], C R, XR CHEST 1VW (PORTABLE), 11/24/2016, 4:08. FINDINGS: Surgical changes and devices: monitor technician leads are seen over the chest. Lungs and pleura: No pneumothorax is seen in the left chest status post thoracentesis. There prominen t abnormal markings in each side of the chest consistent carcinomatosis and possibly overlying infilt rates or atelectasis as well. Mediastinum: Mediastinal contours appear normal. Heart size is normal. Bones and chest wall: No suspicious bony lesions. Overlying soft tissues appear unremarkable. IMPRESSION: Decreased amount of pleural effusion in the right chest. Persistently abnormal chest cons istent with carcinomatosis. PICC line from the right arm into the region of the innominate veins. Unchanged. Dictated by: Gigi Costa M.D. on 11/25/2016 at 13:05 Approved by: Gigi Costa M.D. on 11/25/2016 at 13:07
--- NOTE | 2016-11-25 13:35 | DRSVH ---
PROCEDURE: US GUIDED THORACENTESIS BY REFERRING PHYSICIAN ([id number]) INDICATIONS: large subpulmonic pleural effusion TECHNIQUE: The indications, alternatives, benefits, risks, and complications of the procedure were explained to the patient. Written informed consent was obtained and placed in the chart. The chest was examined sonographically, and an appropriate site was chosen for thoracentesis. The skin was prepared and raphael ped in the usual sterile fashion, and 1% lidocaine was infiltrated from the skin down through the ple ural surface. A 19-gauge catheter-covered needle was then introduced into the pleural space, the cat heter was advanced and the needle was withdrawn, and thereafter pleural fluid was aspirated. The cat heter was then removed and a dressing was applied. COMPARISON: None. FINDINGS: Access site: Left low posterior hemithorax. Needle: One-Step centesis catheter with introducer needle. Fluid volume and description: 650 yellow minimally cloudy Fluid sent for diagnostic testing: Discarded, study therapeutic. Medications: 1% lidocaine for local anaesthesia. Complications: None; post-procedural chest radiograph is pending to assess for pneumothorax. IMPRESSION: Successful ultrasound-guided thoracentesis. Dictated by: Gigi Costa M.D. on 11/25/2016 at 13:32 Approved by: Gigi Costa M.D. on 11/25/2016 at 13:33
--- NOTE | 2016-11-25 14:09 | PCM.PNMED ---
Subjective Date of Service Nov 25, 2016 Subjective Patient continues to have some mild dyspnea and increased O2 requirements. He does still have some intermittent sputum production. Exam Vital Signs Vital Sign - Last Date Time Temp Pulse Resp B/P Pulse Ox O2 Delivery O2 Flow Rate FiO2 11/25/16 13:59 36.5 83 20 115/72 94 OxyMask 7.00 Intake and Output 11/24/16 11/24/16 11/25/16 Cumulative From/Thru 15:00 23:00 07:00 11/24/16 12:47 - 11/25/16 05:25 Intake Total 348 ml 348 ml Balance 348 ml 348 ml IV Total 348 ml 348 ml Exam Constitutional: Elderly male in no acute distress Head: Normocephalic atraumatic Chest: Decreased breath sounds really much worse in the left base Cor: Regular rate and rhythm S1-S2 Abdomen: Soft nontender bowel sounds present Extremities: No pedal edema Neuro: Alert and oriented 3, motor strength is intact bilaterally Lab and Diagnostics Laboratory Tests 72 Hours Test 11/24/16 16:44 11/24/16 17:48 11/25/16 04:25 11/25/16 11:28 Procalcitonin 0.09ng/mL (0.00-0.08) 0.09ng/mL (0.00-0.08) Hold Benedict Top Tube Received (Received) Urine Color Yellow (YELLOW) Urine Appearance Clear (CLEAR,HAZY) Urine pH 5.5 (5.0-8.0) Urine Specific [place] 1.010 (1.003-1.035) Urine Protein Negativemg/dL (NEG,TRACE) Urine Glucose (UA) Negativemg/dL (NEGATIVE) Urine Ketones Negativemg/dL (NEGATIVE) Urine Occult Blood Negative (NEGATIVE) Urine Nitrite Negative (NEGATIVE) Urine Bilirubin Negative (NEGATIVE) Urine Urobilinogen Normalmg/dL (NORMAL) Urine Leukocyte Esterase Negative (NEGATIVE) Urine RBC 0-2/hpf (0-2) Urine WBC 0-5/hpf (0-5) Urine Epithelial Cells Occasional/hpf (NONE-MOD) Urine Crystals None seen (NONE SEEN) Urine Bacteria None/hpf (NONE-FEW) Urine Hyaline Casts None/lpf (NONE) Urine Granular Casts None seen (NONE SEEN) Urine Waxy Casts None seen (NONE SEEN) Urine Red Blood Cell Casts None seen (NONE SEEN) Urine White Blood Cell Casts None seen (NONE SEEN) Urine Mucus None seen (None Seen) Urine Trichomonas None seen (NONE SEEN) Urine Yeast None (NONE SEEN) Urinalysis Comment None Urine Culture Reflexed Not indicated White Blood Count 8.8th/mm3 (3.8-10.1) Red Blood Count 3.99mil/mm3 (4.40-5.80) Hemoglobin 12.7g/dL (13.8-17.2) Hematocrit 38.0% (41.0-50.0) Mean Corpuscular Volume 95.2fL (81-100) Mean Corpuscular Hemoglobin 31.8pg (27.0-35.0) Mean Corpuscular Hemoglobin Concent 33.4% (32.0-37.0) Red Cell Distribution Width 19.4% (12.3-15.4) Platelet Count 163bil/L (150-400) Neutrophils (%) (Auto) 76.6% (40-74) Lymphocytes (%) (Auto) 10.4% (14-46) Monocytes (%) (Auto) 9.5% (4-12) Eosinophils (%) (Auto) 1.0% (0-5) Basophils (%) (Auto) 0.1% (0-3) Band Neutrophils % 2% (1-5) Sodium Level 133mEq/L (134-144) Potassium Level 3.4mEq/L (3.5-5.2) Chloride Level 92mEq/L (97-108) Carbon Dioxide Level 26mmol/L (18-29) Blood Urea Nitrogen 12mg/dL (8-27) Creatinine 0.75mg/dL (0.76-1.27) Estimat Glomerular Filtration Rate 107mL/min (>59) Glucose Level 110mg/dL (60-99) Calcium Level 8.5mg/dL (8.5-10.1) Total Bilirubin 0.6mg/dL (0.0-1.2) Aspartate Amino Transf (AST/SGOT) 17U/L (0-50) Alanine Aminotransferase (ALT/SGPT) 15U/L (0-44) Alkaline Phosphatase 112U/L (25-160) Total Protein 5.4g/dL (6.4-8.4) Albumin 3.2g/dL (3.4-5.0) Prothrombin Time 10.5sec (8.1-12.5) Prothromb Time International Ratio 0.98ratio Activated Partial Thromboplast Time 32.2sec (22.8-33.0) Result Diagram: 11/25/1642411/25/16424 X-Rays, CTs and MRIs PROCEDURE: X-RAY CHEST ONE VIEW, PORTABLE ([id number]) INDICATIONS: dyspnea TECHNIQUE: One view of the chest was acquired. COMPARISON: [facility], CR, XR CHEST 2VW, 11/23/2016, 13:15. [facility], CR, XR CHEST 1VW (PORTABLE), 11/11/2016, 12:31. FINDINGS: Surgical changes and devices: From a right-sided approach extends to the origin of the superior vena cava area , to right of midline. Lungs and pleura: No pneumothorax. Lungs are abnormal with a general pattern of pulmonary edema, and dense consolidation at the left mid and lower lung. Mediastinum: Mediastinal contours appear normal. Heart size is normal. Bones and chest wall: No suspicious bony lesions. Overlying soft tissues appear unremarkable. IMPRESSION: Pulmonary edema pattern, and dense consolidation left mid and lower lung. Presence or absence of pleural effusion is not established by this plain film given the density of the airspace disease on the left. CT scanning may be warranted, but if pleural effusion assessment is clinically desired unilateral left pleural ultrasound could be performed. Dictated by: Farhan Cano M.D. on 11/24/2016 at 7:52 Approved by: Farhan Cano M.D. on 11/24/2016 at 7:54 PROCEDURE: US CHEST, LIMITED ([id number]) INDICATIONS: effusion TECHNIQUE: Real-time focused scanning was performed of the abdomen, with image documentation. COMPARISON: [facility], CR, XR CHEST 1VW (PORTABLE), 11/24/2016, 4: 08. [facility], CR, XR CHEST 2VW, 11/23/2016, 13:15. [facility], CR, XR CHEST 1VW (PORTABLE), 11/11/2016, 12:31. [facility] , CT, CT ANGIO CHEST PE, 11/10/2016, 19:32. [facility], CR, XR CHEST 1VW (PORTABLE), 11/10/2016, 17:31. [facility], [place], ABDOMEN LTD , 08/10/2016, 8:52. FINDINGS: There is a scant right effusion, and a moderately large subpulmonic left effusion located 1.9 cm deep to the skin surface. IMPRESSION: Moderately large subpulmonic left effusion. No internal septation seen. Dictated by: Farhan Cano M.D. on 11/24/2016 at 9:30 Approved by: Farhan Cano M.D. on 11/24/2016 at 9:34 PROCEDURE: CT CHEST WITH CONTRAST ([id number]) INDICATIONS: possible pneumonia,lung cancer TECHNIQUE: After the administration of intravenous contrast, 5 mm thick sections acquired from the pulmonary apices to the posterior costophrenic angles. 7 mm thick coronal and sagittal MIP reformats were acquired. For radiation dose reduction , the following was used: automated exposure control, adjustment of mA and/or kV according to patient size. COMPARISON: [facility], CR, XR CHEST 1VW (PORTABLE), 11/11/2016, 12: 31. [facility], CT, CT ANGIO CHEST PE, 11/10/2016, 19:32. [facility], [place], ABDOMEN LTD, 11/24/2016, 8:30. FINDINGS: Image quality: Excellent. Lungs and pleura: No acute air space opacities again noted is a pattern of nodular infiltrative airspace disease which may represent pneumonia but more likely in this clinical circumstance is a manifestation of lymphangitic spread of neoplasm. Previously present bilateral pleural effusions have not significantly increased in size, and small in size on the right and moderately large in size on the left. No pneumothorax. Central and peripheral airways are patent and normal in caliber. Mediastinum: Heart size is normal. No pericardial effusion. No mediastinal or hilar adenopathy by size criteria. Thoracic aorta and central pulmonary arteries are normal in size. Esophagus is normal in caliber. No hiatal hernia. Bones and chest wall: No suspicious bony lesions. No vertebral body compression fractures. No new axillary or supraclavicular adenopathy by size criteria, and the moderate subcarinal and right paratracheal adenopathy previously present 11/10/16 has not definitely enlarged. Malignant appearing confluent soft tissue soft tissue mass at the anterior left hilum has slightly enlarged. Thyroid gland appears normal. Abdomen: Visualized upper abdominal solid organs appear normal. Upper abdominal bowel loops are normal in caliber. IMPRESSION: Small right and moderately large left pleural effusion but unchanged from prior study 11/10/16. The airspace disease present with a patchy bilateral distribution greater in the perihilar regions has an appearance suggestive of lymphangitic spread of tumor, stable over time. There has been a small interval increase in size of the confluent mass at the left perihilar lung parenchyma, consistent with worsening malignancy. Mediastinal adenopathy is stable over time. Dictated by: Farhan Cano M.D. on 11/24/2016 at 18:47 Approved by: Farhan Cano M.D. 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 See CT of chest results -Albuterol nebs when necessary #Crohn's disease, stable, chronic, present on admission -Continue with his current medication regimen from outpatient #Acute on chronic hypoxic respiratory failure, present on admission -Plan for further evaluation and treatment with ultrasound-guided thoracentesis and CT of chest to elucidate possible pneumonic infiltrate #Hypothyroidism, chronic, present on admission -Continue with his levothyroxine dosing #BPH, chronic, present on admission Continue doxazosin 2 mg by mouth twice a day #GERD, chronic, present on admission -Famotidine 20 mg by mouth twice a day #DVT prophylaxis -Subcutaneous Lovenox prophylactic #CODE STATUS -Full code after discussion with patient and VTE Prophylaxis: Sub-Q Enoxaparin Resuscitation Status: CPR: Attempt Resuscitation Time spent 30 minutes Dianelys Hensley MD Nov 25, 2016 14:09
--- NOTE | 2016-11-25 14:40 | NUR ---
SOB / Thoracentisis Patient had approximately 650mL fluid removed from left chest by radiologist during day shift. Work of breathing decreased (less pursing of lips, tripod positioning, accessory muscle use noted). Able to titrate )@ from 7L/min to 4-5L/min. Patient now able to lay flat, states "I feel a lot better!" Bed low and locked, call light in reach, care and frequent rounding ongoing.
[2016-11-25] MEDS ORDERED: Sodium Chloride LOK Flush 10 mL Syringe IVFLUSH PRN ×2 (17:25)
[2016-11-25] MEDS: diphenhydrAMINE 25 mg Capsule PO SCH (20:20)
[2016-11-26 00:24] VITALS: BP 122/64; PULSE 72; RESP 20; O2SAT 94
[2016-11-26] MEDS: Albuterol 2.5 mg/3 mL Inhalation Solution NEB PRN ×2 (02:23→08:42)
[2016-11-26 02:24] VITALS: PULSE 75; RESP 24; O2SAT 94
[2016-11-26 04:23] VITALS: BP 133/67; PULSE 78; RESP 20; O2SAT 94
--- NOTE | 2016-11-26 04:56 | NUR ---
cough/pain able to ambulate to the bathroom independently with slightly SOB. gait steady. Pt has intermittent coughing spells. c/o back pain because he needs to be sitting up longer until the coughing spell subsides. Tramadol given with minimal relief. Pt resting in bed at this time.
[2016-11-26 05:06] LABS: Mean Corpuscular Hemoglobin 31.2 pg (27.0-35.0); Mean Corpuscular Volume 96 fL (81-100); NEUTROPHILS % (AUTO) 77.9 % (40-74); Platelet Count 158 bil/L (150-400)
[2016-11-26 05:07] LABS: BASOPHILS % (AUTO) 0.2 % (0-3); EOSINOPHILS % (AUTO) 1.3 % (0-5); MONOCYTES % (AUTO) 11.2 % (4-12)
[2016-11-26] MEDS: predniSONE 10 mg Tablet PO SCH (08:00)
[2016-11-26] MEDS: Lactobacillus Rhamnosus 10 Bil Unit Capsule PO SCH (08:01)
--- NOTE | 2016-11-26 08:01 | PCM.DIMED ---
Discharge Instructions Date of Service Nov 26, 2016 Dates of Hospitalization Nov 24, 2016 at 15:47 Discharge Diagnosis Discharge Diagnosis Recurrent left-sided malignant pleural effusion secondary to metastatic lung adenocarcinoma Diet Discharge Diet: Heart Healthy Activity Discharge Activity: Other (as tolerated.) Call your provider Call your provider for: Fever or Chills, Shortness of breath, Bleeding, Chest pain, Vomitting, Excessive diarrhea, Weakness (unilateral) Patient Instructions Follow-up Provider: Paramjit Whitfield MD Follow-up with PCP in: 1 week (, sooner if problems.) Dianelys Hensley MD Nov 26, 2016 08:01
--- NOTE | 2016-11-26 08:08 | PCM.DC.MED ---
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 COMPARISON: [facility], CR, XR CHEST 2VW, 11/23/2016, 13:15. [facility], CR, XR CHEST 1VW (PORTABLE), 11/11/2016, 12:31. FINDINGS: Surgical changes and devices: From a right-sided approach extends to the origin of the superior vena cava area , to right of midline. Lungs and pleura: No pneumothorax. Lungs are abnormal with a general pattern of pulmonary edema, and dense consolidation at the left mid and lower lung. Mediastinum: Mediastinal contours appear normal. Heart size is normal. Bones and chest wall: No suspicious bony lesions. Overlying soft tissues appear unremarkable. IMPRESSION: Pulmonary edema pattern, and dense consolidation left mid and lower lung. Presence or absence of pleural effusion is not established by this plain film given the density of the airspace disease on the left. CT scanning may be warranted, but if pleural effusion assessment is clinically desired unilateral left pleural ultrasound could be performed. Dictated by: Farhan Cano M.D. on 11/24/2016 at 7:52 Approved by: Farhan Cano M.D. on 11/24/2016 at 7:54 PROCEDURE: US CHEST, LIMITED ([id number]) INDICATIONS: effusion TECHNIQUE: Real-time focused scanning was performed of the abdomen, with image documentation. COMPARISON: [facility], CR, XR CHEST 1VW (PORTABLE), 11/24/2016, 4: 08. [facility], CR, XR CHEST 2VW, 11/23/2016, 13:15. [facility], CR, XR CHEST 1VW (PORTABLE), 11/11/2016, 12:31. [facility] , CT, CT ANGIO CHEST PE, 11/10/2016, 19:32. [facility], CR, XR CHEST 1VW (PORTABLE), 11/10/2016, 17:31. [facility], US, ABDOMEN LTD , 08/10/2016, 8:52. FINDINGS: There is a scant right effusion, and a moderately large subpulmonic left effusion located 1.9 cm deep to the skin surface. IMPRESSION: Moderately large subpulmonic left effusion. No internal septation seen. Dictated by: Farhan Cano M.D. on 11/24/2016 at 9:30 Approved by: Farhan Cano M.D. on 11/24/2016 at 9:34 PROCEDURE: CT CHEST WITH CONTRAST ([id number]) INDICATIONS: possible pneumonia,lung cancer TECHNIQUE: After the administration of intravenous contrast, 5 mm thick sections acquired from the pulmonary apices to the posterior costophrenic angles. 7 mm thick coronal and sagittal MIP reformats were acquired. For radiation dose reduction , the following was used: automated exposure control, adjustment of mA and/or kV according to patient size. COMPARISON: [facility], CR, XR CHEST 1VW (PORTABLE), 11/11/2016, 12: 31. [facility], CT, CT ANGIO CHEST PE, 11/10/2016, 19:32. [facility], , ABDOMEN LTD, 11/24/2016, 8:30. FINDINGS: Image quality: Excellent. Lungs and pleura: No acute air space opacities again noted is a pattern of nodular infiltrative airspace disease which may represent pneumonia but more likely in this clinical circumstance is a manifestation of lymphangitic spread of neoplasm. Previously present bilateral pleural effusions have not significantly increased in size, and small in size on the right and moderately large in size on the left. No pneumothorax. Central and peripheral airways are patent and normal in caliber. Mediastinum: Heart size is normal. No pericardial effusion. No mediastinal or hilar adenopathy by size criteria. Thoracic aorta and central pulmonary arteries are normal in size. Esophagus is normal in caliber. No hiatal hernia. Bones and chest wall: No suspicious bony lesions. No vertebral body compression fractures. No new axillary or supraclavicular adenopathy by size criteria, and the moderate subcarinal and right paratracheal adenopathy previously present 11/10/16 has not definitely enlarged. Malignant appearing confluent soft tissue soft tissue mass at the anterior left hilum has slightly enlarged. Thyroid gland appears normal. Abdomen: Visualized upper abdominal solid organs appear normal. Upper abdominal bowel loops are normal in caliber. IMPRESSION: Small right and moderately large left pleural effusion but unchanged from prior study 11/10/16. The airspace disease present with a patchy bilateral distribution greater in the perihilar regions has an appearance suggestive of lymphangitic spread of tumor, stable over time. There has been a small interval increase in size of the confluent mass at the left perihilar lung parenchyma, consistent with worsening malignancy. Mediastinal adenopathy is stable over time. Dictated by: Farhan Cano M.D. on 11/24/2016 at 18:47 Approved by: Farhan Cano M.D. on 11/24/2016 at 19:00 Invasive Procedures Left-sided thoracentesis (therapeutic) by interventional radiology Brief History 76-year-old male with a history of lung carcinoma followed by Dr. Paramjit Whitfield. He has T2 N2 M1 adenocarcinoma left upper lung. 7 imaging shows progressive disease. Recent scheduled moderately large left pleural effusion which was symptomatic and the patient underwent therapeutic and diagnostic left thoracentesis this was done about 2 weeks ago. Findings were positive for malignant effusions. Vision is so far completed 2 cycles of pembrolizumab 200 mg milligrams IV patient assistance this was done and he has become more dyspneic and in the emergency room was found to require more O2 6 L nasal cannula. She was seen in the emergency room today early this morning and patient was given have a thoracentesis and then decided to go home. He returned again later this afternoon wishing to have it done apparently no one in the ER could do it and see Dr. Mckeon notes none of the surgeons would come on and do it at this time. His chest x-ray also suggested possible pneumonia please see report which is included below. Patient denies any fevers or chills. Not had much sputum production. Hospital Course #Recurrent malignant effusion from metastatic lung adenocarcinoma, subacute, present admission -We will order ultrasound-guided thoracentesis therapeutic and radiology was spoken to earlier today and we will proceed with this procedure later today -Check CT of chest with IV contrast shows no pneumonic process but does show lymphangitic spread of cancer with some disease progression with large left pleural effusion. See CT of chest results -Cynthiaol nebs when necessary -Patient did have ultrasound-guided thoracentesis performed by radiology with obtaining 650 mils of fluid on November 25. Patient is feeling much better the day of discharge. -Dr. Whitfield also saw the patient day of discharge and did discuss possibility of Pleurx catheter which further arrangements will be made as an outpatient per Dr. Whitfield. #Crohn's disease, stable, chronic, present on admission -Continue with his current medication regimen from outpatient #Acute on chronic hypoxic respiratory failure, present on admission -Plan for further evaluation and treatment with ultrasound-guided thoracentesis and CT of chest to elucidate possible pneumonic infiltrate #Hypothyroidism, chronic, present on admission -Continue with his levothyroxine dosing #BPH, chronic, present on admission Continue doxazosin 2 mg by mouth twice a day #GERD, chronic, present on admission -Famotidine 20 mg by mouth twice a day #DVT prophylaxis -Subcutaneous Lovenox prophylactic #CODE STATUS -Full code after discussion with patient and Exam Vital Signs (Last) Date Time Temp Pulse Resp B/P Pulse Ox O2 Delivery O2 Flow Rate FiO2 11/26/16 04:23 36.4 78 20 133/67 94 OxyMask 5.00 Exam Constitutional: Elderly male in no acute distress Head: Normocephalic atraumatic Chest: Decreased breath sounds at the bases left greater than right, no rhonchi auscultated Cor: Regular rate and rhythm S1-S2 Abdomen: Soft nontender bowel sounds present Extremities: No pedal edema Neuro: Alert and oriented 3, motor strength is intact bilaterally Psych: Mood and affect are appropriate Skin: No rashes Test 11/24/16 16:44 11/24/16 17:48 11/25/16 04:25 11/25/16 11:28 Hold Benedict Top Tube Received (Received) Urine Color Yellow (YELLOW) Urine Appearance Clear (CLEAR,HAZY) Urine pH 5.5 (5.0-8.0) Urine Specific [place] 1.010 (1.003-1.035) Urine Protein Negativemg/dL (NEG,TRACE) Urine Glucose (UA) Negativemg/dL (NEGATIVE) Urine Ketones Negativemg/dL (NEGATIVE) Urine Occult Blood Negative (NEGATIVE) Urine Nitrite Negative (NEGATIVE) Urine Bilirubin Negative (NEGATIVE) Urine Urobilinogen Normalmg/dL (NORMAL) Urine Leukocyte Esterase Negative (NEGATIVE) Urine RBC 0-2/hpf (0-2) Urine WBC 0-5/hpf (0-5) Urine Epithelial Cells Occasional/hpf (NONE-MOD) Urine Crystals None seen (NONE SEEN) Urine Bacteria None/hpf (NONE-FEW) Urine Hyaline Casts None/lpf (NONE) Urine Granular Casts None seen (NONE SEEN) Urine Waxy Casts None seen (NONE SEEN) Urine Red Blood Cell Casts None seen (NONE SEEN) Urine White Blood Cell Casts None seen (NONE SEEN) Urine Mucus None seen (None Seen) Urine Trichomonas None seen (NONE SEEN) Urine Yeast None (NONE SEEN) Urinalysis Comment None Urine Culture Reflexed Not indicated Procalcitonin 0.09ng/mL (0.00-0.08) Prothrombin Time 10.5sec (8.1-12.5) Prothromb Time International Ratio 0.98ratio Activated Partial Thromboplast Time 32.2sec (22.8-33.0) Test 11/26/16 04:30 White Blood Count 8.9th/mm3 (3.8-10.1) Red Blood Count 3.91mil/mm3 (4.40-5.80) Hemoglobin 12.2g/dL (13.8-17.2) Hematocrit 37.6% (41.0-50.0) Mean Corpuscular Volume 96fL (81-100) Mean Corpuscular Hemoglobin 31.2pg (27.0-35.0) Mean Corpuscular Hemoglobin Concent 32.4% (32.0-37.0) Red Cell Distribution Width 19.5% (12.3-15.4) Platelet Count 158bil/L (150-400) Neutrophils (%) (Auto) 77.9% (40-74) Lymphocytes (%) (Auto) 7.3% (14-46) Monocytes (%) (Auto) 11.2% (4-12) Eosinophils (%) (Auto) 1.3% (0-5) Basophils (%) (Auto) 0.2% (0-3) Band Neutrophils % 2% (1-5) Sodium Level 138mEq/L (134-144) Potassium Level 3.5mEq/L (3.5-5.2) Chloride Level 95mEq/L (97-108) Carbon Dioxide Level 28mmol/L (18-29) Blood Urea Nitrogen 8mg/dL (8-27) Creatinine 0.67mg/dL (0.76-1.27) Estimat Glomerular Filtration Rate 122mL/min (>59) Glucose Level 106mg/dL (60-99) Calcium Level 8.5mg/dL (8.5-10.1) Total Bilirubin 0.4mg/dL (0.0-1.2) Aspartate Amino Transf (AST/SGOT) 17U/L (0-50) Alanine Aminotransferase (ALT/SGPT) 13U/L (0-44) Alkaline Phosphatase 107U/L (25-160) Total Protein 5.1g/dL (6.4-8.4) Albumin 3.2g/dL (3.4-5.0) Discharge Medications Discharge Medications Acetaminophen (Acetaminophen) 500 Mg Tablet 1,000 MG PO BIDWM (Reported) Cholecalciferol (Vitamin D3) (Vitamin D) 1,000 Unit Capsule 1,000 UNIT PO QAM ( Reported) Cyanocobalamin (Cyanocobalamin Injection) 1,000 Mcg/1 Ml Vial 1,000 MCG IM Monthly (Reported) Doxazosin Mesylate (Doxazosin Mesylate) 2 Mg Tablet 2 MG PO BID (Reported) Levothyroxine (Levothyroxine) 50 Mcg Tablet 50 MCG PO QAM (Reported) Multivitamin (Multivitamins) 1 Each Capsule 1 EACH PO QAM (Reported) Pembrolizumab (Keytruda) 100 Mg/4 Ml (25 Mg/Ml) Vial 200 MG IV [id number] (Reported ) Prednisone (PredniSONE) 10 Mg Tablet 10 MG PO DAILY (Reported) Ranitidine (Ranitidine) 300 Mg Capsule 300 MG PO BIDWM (Reported) As needed Acetaminophen/Diphenhydramine (Tylenol Pm Ex-Strength Caplet) 500 Mg-25 Mg Tablet 2 TAB PO HS PRN PRN For Pain (Reported) L. Rhamnosus GG/Inulin (Culturelle Chewable Tablet) 10 Billion Cell-200 Mg Tab.chew 1 EACH PO DAILY PRN PRN For Diarrhea or Loose Stool (Reported) Ondansetron ODT (Ondansetron ODT) 8 Mg Tab.rapdis 8 MG PO Q8H PRN PRN For Nausea /Vomiting (Reported) Tramadol (Tramadol) 50 Mg Tablet 50 MG PO QID PRN PRN For Pain (Reported) Miscellaneous Medications ([oxygen]) 3-4 L NASAL (Reported) Followup Plan Discharge Diet: Heart Healthy Discharge Activity: Other (as tolerated.) Follow-up Provider: Paramjit Whitfield MD Follow-up with PCP in: 1 week (, sooner if problems.) Time spent Greater than 30 minutes was spent in preparation of discharge with greater than 50% of that time dedicated to patient counseling and coordination of care. copies to: Oleg Broderick MD, Cheryl A MD Nov 26, 2016 08:08
--- NOTE | 2016-11-26 08:30 | NUR ---
ADELA signed. MASOUD Garsia
[2016-11-26 08:43] VITALS: PULSE 78; RESP 22; O2SAT 95
--- NOTE | 2016-11-26 09:23 | NUR ---
Social Work-initial assessment/ discharge: Data:See initial assessment. Pt is a 76 y/o male who was admitted on 11/24/16 for lung CA per H&P. Pt's insurance is [facility] and [place] and PCP is Oleg Broderick MD. EMR Reviewed. Pt's readmission score is 3-high risk. SW met with pt and Yodit at bedside, SW role explained. Pt and reside at home in [facility] in single level home with no steps to enter. Pt uses either a fww or cane and does occasionally drive. Pt has history with HH, but no SNF. Pt sees Dr. Whitfield for oncology and uses [facility] through [facility]. 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 SW discussed DPOA/ advanced directive, this has been completed, SW encouraged a copy to be brought in. Pt and in agreement with discharge home today. to provide transport home. SW provided discharge planning checklist and encouraged them to call with any questions, phone number provided. No discharge needs identified. All updated and agreeable to plan. Assessment:pt who is independent at baseline. Plan:Pt to discharge home today via POV. No discharge needs identified. All updated and agreeable to plan. MASOUD Garsia Addendum: 11/26/16 at 0927 by GREG RYAN Amended: Links added.
[2016-11-26 09:40] VITALS: PULSE 75
[2016-11-26 09:42] VITALS: BP 140/74; PULSE 75; RESP 18; O2SAT 95
--- NOTE | 2016-11-26 09:56 | PROG NOTE ---
[address] [address] PROGRESS NOTE PATIENT: SURY GROSS : 1940 MR#: [id number] ADMIT: 11/24/2016 JOB ID: [id number] DATE: 11/26/2016 SUBJECTIVE: The patient is a 76-year-old gentleman with poorly differentiated adenocarcinoma of the lung. He was on treatment with Taxol and carboplatin, but CT imaging in late September showed progressive disease. He had progression of the left upper lobe primary and a left pleural effusion. He also had increased mediastinal and right hilar lymphadenopathy. He was switched to pembrolizumab. He is due for treatment today, but was hospitalized over the weekend with increased shortness of breath. CT of the chest on November 24, 2016, showed a small right and moderately large left pleural effusion. There was air space disease present with patchy bilateral distribution. There was a small increase in the size of the confluent mass at the left perihilar lung parenchyma, with stable mediastinal lymphadenopathy. He underwent ultrasound-guided thoracentesis, removing approximately 650 mL yellow, minimally cloudy fluid on November 25, 2016. He is breathing much more comfortably today. He has been afebrile. OBJECTIVE: Vitals: T 36.4, P 78, R 20, BP 133/67, O2 saturation 94% on 5 L OxyMask. HEENT: Conjunctivae pink. Mucous membranes moist. No oral lesions. Nodes: No adenopathy in the neck or axilla. Chest: Slightly decreased at the left base. Rare expiratory wheeze. Cardiac exam: Regular rate and rhythm with normal S1, S2. Abdomen: Soft, nontender, with normoactive bowel tones. Extremities: No edema. 2+ distal pulses. LABORATORIES: WBC 8.9, hemoglobin 12.2, hematocrit 37.6%, platelets 158,000. Sodium 138, potassium 3.5, BUN 8, creatinine 0.67, glucose 106. AST 17, ALT 13, alkaline phosphatase 107. ASSESSMENT AND PLAN: T2 N2 M1 adenocarcinoma of the left upper lung: Recent imaging showed progressive disease. Taxol and carboplatin was discontinued. He is now on immunotherapy with pembrolizumab 200 mg IV every three weeks. He had 80% PD-L1 expression in his tumor, which suggests that he could have an excellent response to treatment. However, at this time, he still has recurrent pleural effusions. He could benefit from outpatient placement of a PleurX catheter to help relieve the accumulating pleural fluid. His scheduled treatment today will be delayed for one week. Return in one week with CBC, differential, platelets, CMP, and TSH prior to ongoing immunotherapy.
--- NOTE | 2016-11-26 12:15 | NUR ---
DISCHARGE Patient discharged home at 1205 off floor in wheelchair accompanied by [employer] and . All instructions for diet, activity, medications and follow-up reviewed with patient and who report understanding. Vitals stable, denies pain and in no apparent distress. All belongings returned, no IV to discontinue.
== END 2016-11-26 12:05 | disposition home or self-care (01) | DRG 180 ==
LOC: SED 12:38 → MPC 15:47
PROVIDERS: ADMIT Specialist; ATTEND Specialist
PROC: 0W9B3ZZ Drainage of Left Pleural Cavity, Percutaneous Approach (ICD-10-PCS; principal; 2016-11-24)
DX: C34.92 Malignant neoplasm of unspecified part of left bronchus or lung (principal); J96.21 Acute and chronic respiratory failure with hypoxia; C79.51 Secondary malignant neoplasm of bone; J91.0 Malignant pleural effusion; K50.90 Crohn's disease, unspecified, without complications; K21.9 Gastro-esophageal reflux disease without esophagitis; E03.9 Hypothyroidism, unspecified; N40.0 Benign prostatic hyperplasia without lower urinary tract symptoms; Z99.81 Dependence on supplemental oxygen; Z87.891 Personal history of nicotine dependence

== ENCOUNTER 2016-11-29 16:22 | Inpatient (IN) | payer MEDICARE, OTHER ==
[~2016-11-29] VITALS: Ht 160 cm; Wt 53.3 kg
[~2016-11-29 16:22] MED LIST changes: -ALBU8.5H2 INHALATION; -OXYGEN; +PRE10 PO; -PRE20 PO; +TRAM50TA2 PO; +oxygen NASAL
[2016-11-29 16:27] VITALS: BP 117/67; PULSE 79; RESP 24; O2SAT 85
--- NOTE | 2016-11-29 16:37 | ED.REPORT ---
HPI-General Illness Date of Service Nov 29, 2016 ED Provider: Viktor Gross MD Pt is a 76 year old male with a history of lung cancer, home O2, and Crohn's who presents to the ED complaining of increased SOB onset 2 days ago. Pt reports that the SOB is exacerbated with laying supine. Pt describe his dyspnea as persistent and severe. He states that he was diagnosed with pleural effusion on 11/24/16 and this feels similar, however worse. Today, the shortness of breath got much worse and he decided to come into the emergency department. He denies any other associated symptoms that are new today, including any new fever , chills, headache, chest pain, focal weakness, vision changes, or worsening abdominal pain. Nursing Notes Stated Complaint: SOB Chief Complaint: Respiratory Distress Nursing Notes Reviewed: Yes Allergies: Coded Allergies: meperidine (Verified Allergy, Severe, BAD REACTION, high heart rate, ) azathioprine (Verified Allergy, Unknown, 11/24/16) diazepam (Verified Allergy, Unknown, 11/24/16) aspirin (Verified Adverse Reaction, Severe, affects stomach, 11/24/16) lactose (Verified Adverse Reaction, Mild, UNSPECIFIED, 11/24/16) Scheduled Acetaminophen (Acetaminophen) 500 Mg Tablet 1,000 MG PO BIDWM Cholecalciferol (Vitamin D3) (Vitamin D) 1,000 Unit Capsule 1,000 UNIT PO QAM Cyanocobalamin (Cyanocobalamin Injection) 1,000 Mcg/1 Ml Vial 1,000 MCG IM Monthly Doxazosin Mesylate (Doxazosin Mesylate) 2 Mg Tablet 2 MG PO BID Levothyroxine (Levothyroxine) 50 Mcg Tablet 50 MCG PO QAM Multivitamin (Multivitamins) 1 Each Capsule 1 EACH PO QAM Pembrolizumab (Keytruda) 100 Mg/4 Ml (25 Mg/Ml) Vial 200 MG IV [id number] Prednisone (PredniSONE) 10 Mg Tablet 10 MG PO DAILY Ranitidine (Ranitidine) 300 Mg Capsule 300 MG PO BIDWM Scheduled PRN Acetaminophen/Diphenhydramine (Tylenol Pm Ex-Strength Caplet) 500 Mg-25 Mg Tablet 2 TAB PO HS PRN PRN For Pain L. Rhamnosus GG/Inulin (Culturelle Chewable Tablet) 10 Billion Cell-200 Mg Tab.chew 1 EACH PO DAILY PRN PRN For Diarrhea or Loose Stool Ondansetron ODT (Ondansetron ODT) 8 Mg Tab.rapdis 8 MG PO Q8H PRN PRN For Nausea /Vomiting Tramadol (Tramadol) 50 Mg Tablet 50 MG PO QID PRN PRN For Pain Miscellaneous Medications ([oxygen]) 3-4 L NASAL General Time Seen by MD: 16:36 Chief Complaint Other (sob) Hx Obtained From: Patient Arrived By: Walk-in Sudden in Onset?: No Onset Occurred: 2 days ago Symptom Duration: Since onset Severity: Current: No pain currently Severity: Maximum: No pain Recent Healthcare: Recent doctor visit Similar Sx Previous: Yes Past Medical History Past Medical History 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 father - "had heart problems" Smoking History Former Smoker Social History Alcohol Use: "Social" Drug Use: Denies drug use Other Social History: Good social support, Local resident Ambulatory Status Independent Review of Systems Full Review of Systems Constitutional: Denies: Chills, Fever Eyes: Denies: Diplopia Ears / Nose / Throat: Denies: Sore throat Respiratory: Reports: Shortness of breath Cardiovascular: Denies: Chest pain, Palpitations GI: Denies: Abdominal pain Male: Denies Dysuria Musculoskeletal: Denies: Lumbar pain Hematologic: Denies Bruising Endocrine: Denies: Polyuria Skin: Denies Rash Allergy / Immune: Denies: Itching Neurologic: Denies: Focal weakness, Headache, Vision change Psychiatric: Denies: Change mental status Complete sys rev & neg: except as marked. Physical Exam Nursing note and vitals reviewed. Constitutional: Thin, elderly male sitting up in bed. Appears uncomfortable. Head: Normocephalic and atraumatic. Mouth/Throat: Oropharynx is clear and moist. No oropharyngeal exudate. Eyes: EOM are normal. Pupils are equal, round, and reactive to light. Neck: Supple, no tracheal deviation. Cardiovascular: Normal rate, regular rhythm. Equal and intact distal pulses throughout. Pulmonary/Chest: Diminished breath sounds on left as compared to the right, however present. Mild respiratory distress. Abdominal: Soft. No distension. There is no tenderness, rebound, or guarding. Bowel sounds present. Musculoskeletal: Range of motion grossly intact, moving all extremities. No edema or tenderness appreciated. Neurological: AOx3. Grossly nonfocal exam. Strength and sensation intact and equal to bilateral upper and lower extremities. Skin: Warm and dry, no rashes or pallor appreciated. Psychiatric: Appropriate mood and affect. Behavior appears normal. Vital Signs Vital Signs Date Time Temp Pulse Resp B/P Pulse Ox O2 Delivery O2 Flow Rate FiO2 11/29/16 18:17 80 20 116/63 93 Nasal Cannula 6 11/29/16 16:41 76 16 127/70 93 6 11/29/16 16:27 37.1 79 24 117/67 85 Initial VS: Reviewed, Vital signs abnormal Interpretation & Diagnostics Lab Results Interpretation Result Diagram: 11/29/16 1730 11/29/16 1730 Test 11/29/16 17:30 White Blood Count 9.1th/mm3 (3.8-10.1) Red Blood Count 4.09mil/mm3 (4.40-5.80) Hemoglobin 12.9g/dL (13.8-17.2) Hematocrit 39.4% (41.0-50.0) Mean Corpuscular Volume 96.3fL (81-100) Mean Corpuscular Hemoglobin 31.5pg (27.0-35.0) Mean Corpuscular Hemoglobin Concent 32.7% (32.0-37.0) Red Cell Distribution Width 18.9% (12.3-15.4) Platelet Count 185bil/L (150-400) Neutrophils (%) (Auto) 75.5% (40-74) Lymphocytes (%) (Auto) 8.2% (14-46) Monocytes (%) (Auto) 12.3% (4-12) Eosinophils (%) (Auto) 1.5% (0-5) Basophils (%) (Auto) 0.1% (0-3) Prothrombin Time 9.8sec (8.1-12.5) Prothromb Time International Ratio 0.92ratio Sodium Level 128mEq/L (134-144) Potassium Level 3.6mEq/L (3.5-5.2) Chloride Level 87mEq/L (97-108) Carbon Dioxide Level 26mmol/L (18-29) Blood Urea Nitrogen 13mg/dL (8-27) Creatinine 0.59mg/dL (0.76-1.27) Estimat Glomerular Filtration Rate 141mL/min (>59) Glucose Level 131mg/dL (60-99) Calcium Level 8.2mg/dL (8.5-10.1) Magnesium Level 1.6mg/dL (1.6-2.6) Total Bilirubin 0.5mg/dL (0.0-1.2) Aspartate Amino Transf (AST/SGOT) 21U/L (0-50) Alanine Aminotransferase (ALT/SGPT) 13U/L (0-44) Alkaline Phosphatase 121U/L (25-160) Troponin T < 0.010ug/L (0.0-0.011) Pro-B-Type Natriuretic Peptide 157.9pg/mL (0-486) Total Protein 5.4g/dL (6.4-8.4) Albumin 3.3g/dL (3.4-5.0) Hold Benedict Top Tube Received (Received) Lab Results Interpretation: WBC 9.1 Hgb 12.9 75.5% neutrophils Troponin - negative BUN - WNL Sodium - 128 down from 138 three days ago Chloride - 87 PH - 7.46 PCO2 - 40 PO2 - 69.8 ECG Interpretation ECG Interpretation: Sinus rhythm with a rate of 76 Multiple premature complexes, ventricular and supravent Low voltage, extremity and precordial leads When compared to ECG of 11/10/16 no significant change Time: 16:56 Interpreted by: ED physician ECG Interpretation: Sinus rhythm with a rate of 76 Multiple premature complexes marivel and supraven Low voltage, extremity and precordial leads Time: 16:49 Re-Eval/Medical Decision Med Decision/Clinical Course In summary, 76-year-old male with a complex past medical history including lung cancer and recent pleural effusion status post thoracentesis presented to the ED for evaluation of worsening dyspnea over the past several days. Differential is broad, includes ACS, PE, COPD exacerbation, CHF exacerbation, pleural effusion, etc. Upon arrival to the ED, patient's oxygen saturations in the low 80s on his normal home oxygen. 6 L by nasal cannula got him to the low 90s. Blood gas does not demonstrate significant retention; pH 7.46, PCO2 40. Other labs notable for a sodium of 128 down from 138 3 days ago, hemoglobin of 12.9-stable from previous, troponin negative. EKG with no acute ischemic changes appreciated. BNP grossly within normal limits. Chest x-ray appears to show a worsening left-sided effusion as compared with previous. PE is possible , however this seems unlikely to be the cause of the patient's symptoms at this time given that he clearly states it feels similar to previous and has some worsening on his chest x-ray. Given above, plan to admit for further management and evaluation. Patient agreeable to the plan as stated, no further questions. Source of Hx: Old records Time of Eval: 18:14 Re-Evaluation/Progress Note: Informed pt of plan for admission. Pt understands and agrees with plan for admission. All questions addressed. Counseled Regarding: Diagnosis, Lab results, Need for admission Discharge & Departure Primary Impression: Acute respiratory failure with hypoxia Additional Impression: Pleural effusion Disposition: ADMITTED TO HOSPITAL Discharge Condition All VS Reviewed: Yes Condition: Stable Referrals: Oleg Broderick MD (PCP) Scribe Attestation Portions of this note were transcribed by Alethea Hager. I, Dr. Gross personally performed the history, physical exam and medical decision-making; I reviewed and confirmed the accuracy of the information in the transcribed note. Signed by: Estrada Lemus, 11/29/16. copies to: Oleg Broderick MD, William B MD Nov 29, 2016 16:37 Alethea Merritt Nov 29, 2016 18:07
[2016-11-29 16:41] VITALS: BP 127/70; PULSE 76; RESP 16; O2SAT 93
[2016-11-29 17:34] LABS: BASOPHILS % (AUTO) 0.1 % (0-3); EOSINOPHILS % (AUTO) 1.5 % (0-5); MONOCYTES % (AUTO) 12.3 % (4-12); Mean Corpuscular Hemoglobin 31.5 pg (27.0-35.0); Mean Corpuscular Volume 96.3 fL (81-100); NEUTROPHILS % (AUTO) 75.5 % (40-74); Platelet Count 185 bil/L (150-400)
--- NOTE | 2016-11-29 17:39 | ABG ---
DateTimeAnalyzed 17:31:00 -_ pH ____7.460 - 7.350 7.450 pCO2 ___40.3__ -mmHg 35.0 45.0 pO2 ___69.8__ -mmHg 69.0 116 HCO3- ___28.2__ -mmol/L 22.0 26.0 ABE ____4.5__ -mmol/L -2.0 2.0 tHb ___12.5__ -g/dL 12.0 18.0 O2Hb ___92.3__ -% COHb ____1.5__ -% 0.0 1.5 MetHb ____0.6__ -% 0.4 1.5 sO2 ___94.3__ -% 25.0 FIO2 ___44.0__ -% Drawn By gj - Date/Time Notified____ 17:38:00 -_ Spontaneous_RR ___24.0__ -b/min Liter_Flow ____6.0__ -L/min Oxygen Device 1 __CANNULA - Notified By gj - Notified Whom ___DR. NEERAJ - B 755 -mmHg tO2 ___16.2__ -Vol% Justin test _Positive -
[2016-11-29 17:49] LABS: INR 0.92 ratio
[2016-11-29 18:02] LABS: TROPONIN T < 0.010 ug/L (0.0-0.011)
[2016-11-29 18:07] LABS: Magnesium 1.6 mg/dL (1.6-2.6)
[2016-11-29 18:17] VITALS: BP 116/63; PULSE 80; RESP 20; O2SAT 93
[2016-11-29] MEDS ORDERED: Ondansetron 2 mg/mL 2 mL Inj IVPUSH PRN (19:25)
[2016-11-29] MEDS ORDERED: Alum-Mag Hydrox-Simeth 30 mL Suspension PO PRN (19:25)
--- NOTE | 2016-11-29 19:42 | DRSVH ---
PROCEDURE: X-RAY CHEST ONE VIEW, PORTABLE ([id number]) INDICATIONS: dyspnea TECHNIQUE: One view of the chest was acquired. COMPARISON: [facility], CR, XR CHEST 1VW (PORTABLE), 11/25/2016, 12:25. [facility], CT, CT CHEST W CON, 11/24/2016, 18:27. FINDINGS: Surgical changes and devices: None. Lungs and pleura: Worsening appearance of the lung parenchyma bilaterally as was documented during C T scanning or 11/24/16. The airspace disease present represents potentially lymphangitic spread of sera or, and growing lung masses and mediastinal and hilar masses have been better visualized by CT scanni ng. Mediastinum: Mediastinal contours appear normal. Heart size is normal. Bones and chest wall: No suspicious bony lesions. Overlying soft tissues appear unremarkable. IMPRESSION: Continued worsening of the appearance of the lung parenchyma, and mediastinal and bilate ral hilar masses and the left lung mass. These all were better visualized by recent contrast-enhance d CT scanning 11/24/16 and show documented appreciable change person time from a comparison CT 11/10/16. Dictated by: Farhan Cano M.D. on 11/29/2016 at 19:38 Approved by: Farhan Cano M.D. on 11/29/2016 at 19:41
[2016-11-29 19:58] VITALS: BP 121/68; PULSE 74; RESP 20; O2SAT 95
[2016-11-29 20:18] LABS: APPEARANCE,URINE CLEAR (CLEAR,HAZY); COLOR,URINE YELLOW (YELLOW); OCCULT BLOOD,URINE NEGATIVE (NEGATIVE); UROBILINOGEN,URINE NORMAL (NORMAL)
[2016-11-29 20:43] VITALS: BP 154/84; PULSE 83; RESP 36; O2SAT 90
--- NOTE | 2016-11-29 20:55 | PCM.HPMED ---
Subjective Date of Service Nov 29, 2016 Primary Provider: Admitting Physician: Perry Fabian MD Primary Care Physician: Oleg Broderick MD Attending Physician: Perry Fabian MD Chief Complaint: Shortness of breath History of Present Illness: 76-year-old gentleman with differentiated adenocarcinoma of the lung with bone metastases currently receiving chemotherapy every 3 weeks under the care of Dr. Whitfield, Crohn's disease status post partial colectomy, presents to the emergency department after experiencing acute and worsening shortness of breath at home while sitting in a chair at rest. He complains of worsening shortness of breath and not sitting at 90. He was scheduled to have thoracentesis to drain reoccurring malignant pleural effusion tomorrow, this will be the third done in 3 weeks. He is on oxygen at home, 5 L. He claims to be having left- sided thorax pain that recurs when there is reaccumulation of pleural fluid, he has an occasional cough and coughing spells which he describes as taking his breath completely away and feeling as though he is going to pass out. Currently he denies shortness of breath, lightheadedness, dizziness, nausea vomiting, chronically has diarrhea. No abdominal pain. No numbness weakness tingling in his arms hands feet or legs. Speaking to the and patient sounds like there was discussion about placing a drain, and they are curious that is to be done tonight or tomorrow. He had been admitted and had thoracentesis performed last week. In the emergency department vitals showed 37.1 Celsius, 79, 24, 117/67, and 85% on room air. WBC 9.1, hemoglobin 12.9, 75.5% neutrophils, Sodium 128, chloride 87, creatinine 0.59, glucose 131, calcium 8.2, troponin negative, liver enzymes normal, pro-calcitonin 0.12 EK beats per minute, sinus rhythm, FL 160, QTC 405. Multiple premature complexes ventricular and supraventricular, "possible anterior septal infarct, age indeterminate." No signs of AV block, ischemia or infarction. Chest x-ray: Demonstrated continued worsening of appearance of lung parenchyma, mediastinal bilateral hilar masses in the left lung. ABG showed PaO2 of 69.8, bicarbonate 28, normal pH and PaCO2. Due to patient's acute on chronic respiratory failure, worsening appearance on chest x-ray, patient is to be admitted for observation with plan to move forward with thoracentesis and possible drain placement. Review of Systems: A comprehensive review of systems was conducted with the patient and found to be negative except as above in the history of presenting illness. Allergies Coded Allergies: meperidine (Verified Allergy, Severe, BAD REACTION, high heart rate, ) azathioprine (Verified Allergy, Unknown, 11/24/16) diazepam (Verified Allergy, Unknown, 11/24/16) aspirin (Verified Adverse Reaction, Severe, affects stomach, 11/24/16) lactose (Verified Adverse Reaction, Mild, UNSPECIFIED, 11/24/16) Home Medications Scheduled Acetaminophen (Acetaminophen) 500 Mg Tablet 1,000 MG PO BIDWM Cholecalciferol (Vitamin D3) (Vitamin D) 1,000 Unit Capsule 1,000 UNIT PO QAM Cyanocobalamin (Cyanocobalamin Injection) 1,000 Mcg/1 Ml Vial 1,000 MCG IM Monthly Doxazosin Mesylate (Doxazosin Mesylate) 2 Mg Tablet 2 MG PO BID Levothyroxine (Levothyroxine) 50 Mcg Tablet 50 MCG PO QAM Multivitamin (Multivitamins) 1 Each Capsule 1 EACH PO QAM Pembrolizumab (Keytruda) 100 Mg/4 Ml (25 Mg/Ml) Vial 200 MG IV [id number] Prednisone (PredniSONE) 10 Mg Tablet 10 MG PO DAILY Ranitidine (Ranitidine) 300 Mg Capsule 300 MG PO BIDWM Scheduled PRN Acetaminophen/Diphenhydramine (Tylenol Pm Ex-Strength Caplet) 500 Mg-25 Mg Tablet 2 TAB PO HS PRN PRN For Pain L. 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 Family History mgf - crohns brother - "tumor in his back" Maternal uncle - of colon cancer. father - "had heart problems" Social History Hx Alcohol Use: No Hx Substance Use: No Hx Tobacco Use: No Smoking Status: Former Smoker Living Arrangement: with Family Exam Vital Signs Vital Sign - Last Date Time Temp Pulse Resp B/P Pulse Ox O2 Delivery O2 Flow Rate FiO2 11/29/16 20:43 36.7 83 36 154/84 90 Nasal Cannula 5.00 Exam General: Sitting up in bed with left leg dangling over side of bed. He does not appear to be in any distress. HEENT: Normocephalic, atraumatic, EOMI grossly, mucous membranes moist, neck supple without lymphadenopathy, and nasal cannula in place. Cardiovascular: Regular rate and rhythm, no clicks murmurs rubs, peripheral pulses 2/4 equal bilaterally Pulmonary: Coarse breath sounds right hemithorax with expiratory wheeze, decreased breath sounds left side thorax with dullness to percussion, Band-Aid and posterior chest wall left-sided. Abdominal: Soft to palpation, bowel sounds present 4, no hepatosplenomegaly. Negative rebound. Extremities: No edema appreciated. No tenderness, asymmetry. IV access right upper extremity Neuro: Neurologically grossly intact, strength is equal bilaterally upper and lower extremities. MSK: Able to move extremities on their own volition, strength 5 out of 5 equal bilaterally to upper and lower extremities. Psychiatric: A and O 4, appropriate mood and affect. Lab and Diagnostics Result Diagram: 11/29/16 1730 11/29/16 173 X-Rays, CTs and MRIs IMPRESSION: Continued worsening of the appearance of the lung parenchyma, and mediastinal and bilateral hilar masses and the left lung mass. These all were better visualized by recent contrast-enhanced CT scanning 11/24/16 and show documented appreciable changeover operator time from a comparison CT 11/10/16. Dictated by: Farhan Cano M.D. on 11/29/2016 at 19:38 12-lead ECG EK beats per minute, sinus rhythm, FL 160, QTC 405. Multiple premature complexes ventricular and supraventricular, "possible anterior septal infarct, age indeterminate." No signs of AV block, ischemia or infarction. Additional Diagnostics: DateTimeAnalyzed 17:31:00 -_ pH ____7.460 - 7.350 7.450 pCO2 ___40.3__ -mmHg 35.0 45.0 pO2 ___69.8__ -mmHg 69.0 116 HCO3- ___28.2__ -mmol/L 22.0 26.0 Assessment & Plan 76-year-old gentleman with malignant lung adenocarcinoma, recurrent pleural effusion presents with shortness of breath and feeling like he is going to pass out, his son to be hypoxic in the emergency department and stabilized with supplemental O2, chest x-ray demonstrated worsening findings associated with cancer and pleural effusion. Recurrent malignant effusion from metastatic lung adenocarcinoma, acute on chronic, present admission We will order ultrasound-guided thoracentesis therapeutic Patient was admitted 5 days ago with similar symptoms and underwent chest CT, pneumonia workup which was negative at that time. Continue to monitor vitals for signs of sepsis Holding heparin in anticipation of thoracentesis. Acute on chronic hypoxic respiratory failure, present on admission ABG was normal, repeat ABG with worsening dyspnea when necessary Plan for further evaluation and treatment with ultrasound-guided thoracentesis. Supplemental oxygen maintain oxygen saturation greater than 92% Keep head of bed elevated for patient comfort Acute hyponatremia, present on admission, active serum sodium 128, no confusion, weakness, or signs of being symptomatic. - Patient states he has not not eaten much today, electrolytes were normal prior to discharge 3 days ago IVF, NS 125 mL per hour Acute hypochloremia, present on admission, active Serum chloride 87. Normal saline as above. Crohn's disease, stable, chronic, present on admission Continue with his current medication regimen from outpatient Hypothyroidism, chronic, present on admission Continue with his levothyroxine dosing BPH, chronic, present on admission Continue doxazosin 2 mg by mouth twice a day GERD, chronic, present on admission Famotidine 20 mg by mouth twice a day CODE STATUS Full code after discussion with patient and Pain Evaluation: Acetaminophen as needed, continued from ambulatory. Tramadol 50 mg twice a day as needed for breakthrough pain. VTE Prophylaxis: SCDs. GI prophylaxis not indicated Pain Evaluation: Adequate Pain Control VTE Prophylaxis: Sub-Q Heparin (Unfractionated), SCDs Resuscitation Status: CPR: Attempt Resuscitation Attending Statement The patient was seen and examined together with Dr. Garza on 11/29 and I agree with the history, exam and plan as outlined in the note above. Isaias Izquierdo DO Nov 29, 2016 20:55 Perry Fabian MD Nov 29, 2016 22:49
[2016-11-29] MEDS: 0.9% Sodium Chloride 1,000 ML IV SCH (20:56)
[2016-11-29] MEDS: Heparin 5,000 Unit/mL Inj SUBQ SCH (21:52)
[2016-11-29] MEDS ORDERED: Ondansetron 8 mg ODT Tablet PO PRN (22:10)
[2016-11-29] MEDS ORDERED: Lactobacillus Rhamnosus 10 Bil Unit Capsule PO PRN (22:30)
--- NOTE | 2016-11-29 22:30 | NUR ---
admit note/med rec Pt is admitted to room 3031 around 20:30 from ER for hypoxia, respiratory failure; accompanied by his , Yodit. Pt is A&Ox4; moderately hard of hearing. Extremely SOB after walking to and from the bathroom even with 6L O2; relieved after resting in bed, denies SOB when not exerting. gait steady. lung sounds are markedly decreased on the left; SpO2 in low 90s on 5L humidified O2. Pt will be NPO after midnight for US guided thoracentesis; pt aware. Pt and pt's are oriented to room and plan of care. They both verbalized understanding. Med rec done from pt's discharge med list. Pt and pt's verified them. Addendum: 11/30/16 at 0647 by YU WALKER RN Pt gets extremely SOB when getting OOB to void at bedside; gets very coarse with some wheezing. resolved overtime after resting in bed. using 6L O2 via Oxymask at night. SpO2 >92%. Tramadol given for left chest/side pain with good relief.
[2016-11-29] MEDS: diphenhydrAMINE 25 mg Capsule PO PRN (22:57)
[2016-11-30] VITALS (14 sets, daily range): BP systolic 98–152; BP diastolic 53–83; PULSE 73–96; RESP 20–32; O2SAT 92–96
[2016-11-30] MEDS: 0.9% Sodium Chloride 1,000 ML IV SCH ×2 (07:05→23:40)
[2016-11-30 07:19] LABS: BASOPHILS % (AUTO) 0.3 % (0-3); EOSINOPHILS % (AUTO) 1.9 % (0-5); MONOCYTES % (AUTO) 11.2 % (4-12); Mean Corpuscular Hemoglobin 31.9 pg (27.0-35.0); Mean Corpuscular Volume 96.2 fL (81-100); NEUTROPHILS % (AUTO) 73.2 % (40-74); Platelet Count 163 bil/L (150-400)
[2016-11-30 07:57] LABS: Magnesium 1.6 mg/dL (1.6-2.6)
[2016-11-30] MEDS: predniSONE 10 mg Tablet PO SCH (07:58)
[2016-11-30] MEDS: Heparin 5,000 Unit/mL Inj SUBQ SCH ×2 (08:00→16:30)
[2016-11-30] MEDS: Albuterol 2.5 mg/3 mL Inhalation Solution NEB PRN (11:28)
[2016-11-30] MEDS ORDERED: Heparin 10,000 Unit/1,000 mL NS Premix IV ONE (11:55)
--- NOTE | 2016-11-30 12:20 | NUR ---
off unit pt is off unit to cardiac catheterization technician for lung drain. Pt left in bed with 5L oxygen and at bedside. No s/s of worsening distress at time of transfer
--- NOTE | 2016-11-30 13:57 | NUR ---
Spoke with [facility] and they have never done the draining for a plurex drain. Spoke with Mian at [facility] [phone] and he is seeing how often a RN would be available to come out and he will let us know as soon possible. Let him know likely Saturday discharge. Updated [employer] Addendum: 11/30/16 at 1424 by MIAN WALTER CM Mian returned call and they have not been able to do Plurex drains because they no longer have the supplier for the plurex drains. Updated [employer] TE[employer]
--- NOTE | 2016-11-30 14:30 | NUR ---
shift note Pt c/o SOB during shift until he went down for drain placement. Oxygen demand ranged from 4-7L. Pt only desat down to 89% at lowest. pt returned from [facility] with Pluerex drain in left lateral abd, CDI. [facility] nurse drained 800ml at bedside and showed family how to use drain. Pt reported decreased WOB. On 2L NC Sp02 91-93%. Pt was given two canisters for draining which will be done at Dr Jacobs office outpatient. Pt c/o 10/29 left shoulder and back pain that was relieved by toradol.
--- NOTE | 2016-11-30 15:19 | DRSVH ---
PROCEDURE: X-RAY CHEST ONE VIEW ([id number]) INDICATIONS: Pleural effusion TECHNIQUE: One view of the chest was acquired. COMPARISON: [facility], CR, XR CHEST 2VW, 11/23/2016, 13:15. [facility], CR, XR CHEST 1VW (PORTABLE), 11/24/2016, 4:08. [facility], CR, XR CHEST 1VW (PORTABLE), 11/29, 18:35. FINDINGS: Surgical changes and devices: Sided chest tube has been placed. PICC line is stable. Lungs and pleura: Small right sided pleural effusion is noted. No left-sided pleural effusion followi ng placement of chest tube. Patchy opacity in the left lung base concerning for pneumonia or aspirati on noted. Left basilar lung mass is obscured by left lung base patchy opacities. Diffuse bilateral lulú ng opacities noted suspicious for pulmonary edema. Mediastinum: Mediastinal contours appear normal. Heart size is normal. Bones and chest wall: No suspicious bony lesions. Overlying soft tissues appear unremarkable. IMPRESSION: 1. Resolution of left-sided pleural effusion following placement of left-sided chest tube. 2. Increasing bilateral lung opacities turning for pulmonary edema. Developing ARDS cannot be exclude d. 3. Patchy airspace opacities in left lung base concerning for pneumonia or aspiration. Dictated by: Ashley Santos MD, PhD on 11/30/2016 at 15:13 Approved by: Ashley Santos MD, PhD on 11/30/2016 at 15:17
--- NOTE | 2016-11-30 15:20 | NUR ---
Pleural cath/SELINA Pleura vac placed in bolt labeler, pt had 700cc of serous fluid drained in lab and 800 cc drained at bedside in rm [id number]. Pt present during demonstration and stated that she would be more comfortable managing the device at home after some repeat demonstration from a nurse either at home or at the hospital. Dr. Whitfield's office contacted and it was stated that nurses in the office are comfortable helping Mrs. Juarez with some repeat education of care of the pleural vac. Pt has appointment scheduled for 12-03-16 at 0830. Orders for supplies were filled out and faxed to the proper people so that the patient should start receiving supplies at home. Pt was given 2 pleura vac kits to take home for use. Report given to Paolo Roberson RN.
--- NOTE | 2016-11-30 15:55 | NUR ---
Social Work: Brief Note requested BRAND AMBASSADOR PROMOTIONAL MODEL assistance regarding equipment and home support for pt regarding plurex drain. UR specialist made phone calls, see her note. HH not able to support this at home. MOC not capable of doing this outpt. BRAND AMBASSADOR PROMOTIONAL MODEL informed by SELINA RN who set up supplies for the week and confirmed that oncology outpt can support pt in drainage as needed through Dr. Whitfield's office. BRAND AMBASSADOR PROMOTIONAL MODEL will continue to follow. MASOUD Rhoades
[2016-12-01] VITALS (11 sets, daily range): BP systolic 112–142; BP diastolic 69–79; PULSE 73–89; RESP 20–32; O2SAT 92–94
[2016-12-01] MEDS: Heparin 5,000 Unit/mL Inj SUBQ SCH ×3 (00:30→17:14)
--- NOTE | 2016-12-01 02:19 | PCM.PNMED ---
Subjective Date of Service Nov 30, 2016 Subjective Patient is seen and examined. He says that he is quite short of breath. He is on 4 L in the room. Exam Vital Signs Vital Sign - Last Date Time Temp Pulse Resp B/P Pulse Ox O2 Delivery O2 Flow Rate FiO2 11/30/16 08:01 Supplement Oxygen 11/30/16 05:06 73 11/30/16 04:38 36.8 32 152/54 92 8.00 Intake and Output 11/29/16 11/29/16 11/30/16 Cumulative From/Thru 15:00 23:00 07:00 11/29/16 16:27 - 11/29/16 22:00 # Voids 1 1 Exam General: He does not appear to be in any distress. HEENT: Normocephalic, atraumatic, Cardiovascular: Regular rate and rhythm, no clicks murmurs rubs, Pulmonary: expiratory wheeze, decreased breath sounds left side Abdominal: Soft to palpation, bowel sounds present 4, no hepatosplenomegaly. Extremities: No edema appreciated. No tenderness, asymmetry. IV access right upper extremity Neuro: No focal deficits MSK: Able to move extremities on their own volition, strength 5 out of 5 equal bilaterally to upper and lower extremities. Psychiatric: A and O 4, appropriate mood and affect. IVs and Medications Medications Reviewed: Medications were reviewed in detail Lab and Diagnostics Result Diagram: 11/29/16 1730 11/30/16 0707 X-Rays, CTs and MRIs IMPRESSION: Continued worsening of the appearance of the lung parenchyma, and mediastinal and bilateral hilar masses and the left lung mass. These all were better visualized by recent contrast-enhanced CT scanning 11/24/16 and show documented appreciable exchange administrator time from a comparison CT 11/10/16. Dictated by: Farhan Cano M.D. on 11/29/2016 at 19:38 12-lead ECG EK beats per minute, sinus rhythm, W[place] 160, QTC 405. Multiple premature complexes ventricular and supraventricular, "possible anterior septal infarct, age indeterminate." No signs of AV block, ischemia or infarction. Additional Diagnostics DateTimeAnalyzed 17:31:00 -_ pH ____7.460 - 7.350 7.450 pCO2 ___40.3__ -mmHg 35.0 45.0 pO2 ___69.8__ -mmHg 69.0 116 HCO3- ___28.2__ -mmol/L 22.0 26.0 Assessment & Plan 76-year-old gentleman with malignant lung adenocarcinoma, recurrent pleural effusion presents with shortness of breath and feeling like he is going to pass out, his son to be hypoxic in the emergency department and stabilized with supplemental O2, chest x-ray demonstrated worsening findings associated with cancer and pleural effusion. 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 Informed colostomy to Dr. Whitfield, Dr. Friend as Dr. Mandujano is concerned about thevaccutane catheter being covered by insurance. UR says patient will be able to get one week supply after which time he will see Dr. Whitfield, who can order further supplies Patient was admitted 5 days ago with similar symptoms and underwent chest CT, pneumonia workup which was negative at that time. Continue to monitor vitals for signs of sepsis Holding heparin in anticipation of thoracentesis. His current that Dr. Whitfield has been contacted, he replied that he is expecting that patient would get a Pleurx catheter Acute on chronic hypoxic respiratory failure, present on admission ABG was normal, repeat ABG with worsening dyspnea when necessary Plan for further evaluation and treatment with ultrasound-guided thoracentesis. Supplemental oxygen maintain oxygen saturation greater than 92% Keep head of bed elevated for patient comfort Acute hyponatremia, present on admission, resolved serum sodium 128, no confusion, weakness, or signs of being symptomatic. - Patient states he has not not eaten much today, electrolytes were normal prior to discharge 3 days ago Name lab test showed improvement 135 IVF, NS 125 mL per hour Acute hypochloremia, present on admission, improved Serum chloride 87-->95 Normal saline as above. Crohn's disease, stable, chronic, present on admission Continue with his current medication regimen from outpatient Hypothyroidism, chronic, present on admission Continue with his levothyroxine dosing BPH, chronic, present on admission Continue doxazosin 2 mg by mouth twice a day GERD, chronic, present on admission Famotidine 20 mg by mouth twice a day CODE STATUS Full code after discussion with patient and Pain Evaluation: Acetaminophen as needed, continued from ambulatory. Tramadol 50 mg twice a day as needed for breakthrough pain. VTE Prophylaxis: SCDs. GI prophylaxis not indicated Pain Evaluation: Adequate Pain Control VTE Prophylaxis: Sub-Q Heparin (Unfractionated), SCDs Resuscitation Status: CPR: Attempt Resuscitation Time spent 40 minutes Mary Dent DO Nov 30, 2016 08:16
[2016-12-01] MEDS: diphenhydrAMINE 25 mg Capsule PO PRN ×2 (04:56→22:30)
[2016-12-01] MEDS: Albuterol 2.5 mg/3 mL Inhalation Solution NEB PRN ×4 (05:30→22:09)
[2016-12-01] MEDS: predniSONE 10 mg Tablet PO SCH (08:10)
[2016-12-01] MEDS ORDERED: OXYC-474 PO (08:49)
--- NOTE | 2016-12-01 09:00 | NUR ---
ADELA signed MASOUD Rhoades
[2016-12-01] MEDS: 0.9% Sodium Chloride 1,000 ML IV SCH (09:26)
--- NOTE | 2016-12-01 12:16 | ABG ---
DateTimeAnalyzed 12:10:00 -_ pH ____7.447 - 7.350 7.450 pCO2 ___34.9__ -mmHg 35.0 45.0 pO2 ___69.9__ -mmHg 69.0 116 HCO3- ___23.7__ -mmol/L 22.0 26.0 ABE ____0.5__ -mmol/L -2.0 2.0 tHb ___12.2__ -g/dL 12.0 18.0 O2Hb ___92.4__ -% COHb ____1.4__ -% 0.0 1.5 MetHb ____0.6__ -% 0.4 1.5 sO2 ___94.3__ -% 25.0 FIO2 ___40.0__ -% Drawn By JJ - Date/Time Notified____ 12:16:00 -_ Liter_Flow ____4.0__ -L/min Oxygen Device 1 __OXYMASK - Notified By JJ - Notified Whom DR MENDIOLA - B 755 -mmHg tO2 ___15.9__ -Vol% Justin test _Positive -
--- NOTE | 2016-12-01 12:47 | DRSVH ---
PROCEDURE: X-RAY CHEST ONE VIEW ([id number]) INDICATIONS: DYSPNEA TECHNIQUE: One view of the chest was acquired. COMPARISON: [facility], CR, XR CHEST 1VW, 11/30/2016, 14:55. FINDINGS: Surgical changes and devices: Stable left pleural catheter. Stable right PICC. Further tubing project s over the medial aspect of the left lung and may be outside of the patient. Lungs and pleura: Reaccumulation of small left-sided pleural effusion. Stable small right pleural eff usion. Persistent dense left perihilar and basilar pulmonary opacities. Lesser right basilar pulmonar y opacities. Mediastinum: Mediastinal contours appear normal. Heart size is normal. Bones and chest wall: No suspicious bony lesions. Overlying soft tissues appear unremarkable. IMPRESSION: 1. Reaccumulation small left pleural effusion. Stable small right pleural effusion. 2. Stable left perihilar and bibasilar left greater than right pulmonary opacities. Dictated by: Chris Garcia M.D. on 12/01/2016 at 12:42 Approved by: Chris Garcia M.D. on 12/01/2016 at 12:45
--- NOTE | 2016-12-01 17:02 | NUR ---
Social Work: Initial Assessment Data: Pt is a 76 y/o male admitted for acute hypoxia, respiratory failure. Pt's PCP is Dr Broderick, pt's insurance is Medicare wtih [employer]. EMR reviewed. Readmit score is 5, high. Pt discussed in multidisciplinary rounds. MD states pt not yet ready for d/c medically. SLUDGE FILTRATION ATTENDANT met with pt and spouse at bedside, role explained. Pt states he and his live in a single story home in [place] where he uses a walker and a cane. Pt does not currently drive, has no hx of HH or SNF, no LTC or VA benefits, and is not a caregiver. No d/c planning needs identified at this time. SLUDGE FILTRATION ATTENDANT will continue to follow if needs arise. Assessment: Pt who is independent at baseline. Plan: Pt will d/c home via POV when medically stable with plurex supplies provided by SELINA, see SELINA note regarding this. Oncology with Dr. Whitfield's office will follow up support pt and spouse with plurex drain support, an appointment is on Saturday at 8:30am per SELINA. No d/c planning needs identified at this time. SLUDGE FILTRATION ATTENDANT will continue to follow if needs arise. MASOUD Rhoades Addendum: 12/01/16 at 1706 by KHADIJAH REA Amended: Links added.
--- NOTE | 2016-12-01 18:39 | NUR ---
Pain, SOB, and Coughing Patient complained of pain 09/29 on the site of chest tube drain, difficulty breathing and coughing intermittently through out the day. Gave patient oxycodone Q4 for relief. Patient got relief from pain medication. Pain 06/29, breathing improved and coughing suppressed. Addendum: 12/01/16 at 1844 by ELENA RUSSO RN Q4 neb treatments also gave patient relief.
[2016-12-01] MEDS ORDERED: Furosemide 10 mg/mL 4 mL Inj IVPUSH ONE (20:20)
--- NOTE | 2016-12-01 23:13 | PCM.PNMED ---
Subjective Date of Service Dec 01, 2016 Subjective Patient is c/o pain, he declined pain meds earlier but upon further discussion with him and , they are willing to try oxycodone. No other concerns Exam Vital Signs Vital Sign - Last Date Time Temp Pulse Resp B/P Pulse Ox O2 Delivery O2 Flow Rate FiO2 12/01/16 12:12 36.8 83 22 136/79 93 Nasal Cannula 5.00 Intake and Output 11/30/16 11/30/16 12/01/16 Cumulative From/Thru 15:00 23:00 07:00 11/29/16 16:27 - 12/01/16 06:18 Intake Total 1270 ml 600 ml 200 ml 2070 ml Output Total 825 ml 1600 ml 375 ml 2800 ml Balance 445 ml -1000 ml -175 ml -730 ml Intake Oral 270 ml 600 ml 200 ml 1070 ml IV Total 1000 ml 1000 ml Output Urine Total 825 ml 100 ml 375 ml 1300 ml Drainage Total 1500 ml 1500 ml # Voids 2 2 5 # Bowel Movements 0 2 2 Exam General: He appears to be in pain HEENT: Normocephalic, atraumatic, Cardiovascular: Regular rate and rhythm, no clicks murmurs rubs, Pulmonary: more crackles on left side, catheter incision is present Abdominal: Soft to palpation, bowel sounds present 4, no hepatosplenomegaly. Positive for abd hernia Extremities: No edema appreciated. No tenderness, asymmetry. IV access right upper extremity Neuro: No focal deficits MSK: Able to move extremities on their own volition, strength 5 out of 5 equal bilaterally to upper and lower extremities. Psychiatric: A and O 4, appropriate mood and affect. IVs and Medications Medications Reviewed: Medications were reviewed in detail Lab and Diagnostics Result Diagram: 11/30/16 0707 11/30/16 0707 X-Rays, CTs and MRIs IMPRESSION: Continued worsening of the appearance of the lung parenchyma, and mediastinal and bilateral hilar masses and the left lung mass. These all were better visualized by recent contrast-enhanced CT scanning 11/24/16 and show documented appreciable cell changer time from a comparison CT 11/10/16. Dictated by: Farhan Cano M.D. on 11/29/2016 at 19:38 12-lead ECG EK beats per minute, sinus rhythm, [place] 160, QTC 405. Multiple premature complexes ventricular and supraventricular, "possible anterior septal infarct, age indeterminate." No signs of AV block, ischemia or infarction. Additional Diagnostics DateTimeAnalyzed 17:31:00 -_ pH ____7.460 - 7.350 7.450 pCO2 ___40.3__ -mmHg 35.0 45.0 pO2 ___69.8__ -mmHg 69.0 116 HCO3- ___28.2__ -mmol/L 22.0 26.0 Assessment & Plan 76-year-old gentleman with malignant lung adenocarcinoma, recurrent pleural effusion presents with shortness of breath and feeling like he is going to pass out, his son to be hypoxic in the emergency department and stabilized with supplemental O2, chest x-ray demonstrated worsening findings associated with cancer and pleural effusion. 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 Informed colostomy to Dr. Whitfield, Dr. Friend as Dr. Mandujano is concerned about thevaccutane catheter being covered by insurance. UR says patient will be able to get one week supply after which time he will see Dr. Whitfield, who can order further supplies Patient was admitted 5 days ago with similar symptoms and underwent chest CT, pneumonia workup which was negative at that time. Continue to monitor vitals for signs of sepsis Holding heparin in anticipation of thoracentesis. His current that Dr. Whitfield has been contacted, he replied that he is expecting that patient would get a Pleurx catheter Dr Mott from IR has placed the vaccutae catheter, 700+800 cc were evacuated. Oxycodone and morphine for pain Oxygen sats are baseline this AM (4L) CXR 2 view was ordered and reviewed independently by me, does not look concerning for pneumothorax or reaccumulation of pleural fluid. Discussed case with Radiologist child development consultant, he sees no reason to get the fluid out again prior to patient meeting with Dr. Whitfield. Dr. Whitfield's office will take over teaching the how to care for the catheter. She appears to be apprehensive, saying she is not comfortable with it. ABG are ordered this AM due to pt complaining of pain and dyspnea: pH7.447 , pCO2 34.9, pO2 69.9, HCO3- 23.7sO2 94.3 WNL Acute on chronic hypoxic respiratory failure, present on admission ABG was normal, repeat ABG with worsening dyspnea when necessary Plan for further evaluation and treatment with ultrasound-guided thoracentesis. Supplemental oxygen maintain oxygen saturation greater than 92% Keep head of bed elevated for patient comfort CXR 2 view was ordered and reviewed independently by me, does not look concerning for pneumothorax or reaccumulation of pleural fluid. Acute hyponatremia, present on admission, resolved serum sodium 128, no confusion, weakness, or signs of being symptomatic. - Patient states he has not not eaten much today, electrolytes were normal prior to discharge 3 days ago Name lab test showed improvement 135 IVF, NS 125 mL per hour Acute hypochloremia, present on admission, improved Serum chloride 87-->95 Normal saline as above. Crohn's disease, stable, chronic, present on admission Continue with his current medication regimen from outpatient Hypothyroidism, chronic, present on admission Continue with his levothyroxine dosing BPH, chronic, present on admission Continue doxazosin 2 mg by mouth twice a day GERD, chronic, present on admission Famotidine 20 mg by mouth twice a day High Risk Meds: IV Morphine CODE STATUS Full code after discussion with patient and Pain Evaluation: Acetaminophen as needed, continued from ambulatory. Tramadol 50 mg twice a day as needed for breakthrough pain. VTE Prophylaxis: SCDs. GI prophylaxis not indicated Pain Evaluation: Pain not Controlled VTE Prophylaxis: Sub-Q Heparin (Unfractionated), SCDs Resuscitation Status: CPR: Attempt Resuscitation Time spent 30 min Mary Dent DO Dec 01, 2016 16:11
[2016-12-02] VITALS (15 sets, daily range): BP systolic 116–145; BP diastolic 60–75; PULSE 74–97; RESP 22–28; O2SAT 90–94
[2016-12-02] MEDS: Heparin 5,000 Unit/mL Inj SUBQ SCH ×3 (00:36→16:33)
--- NOTE | 2016-12-02 06:40 | NUR ---
Pain/SOB/Wright Pt exhibits very moist, gurgling breath sounds, accompanied with severe SOB. called and order for 1x dose of IV Lasix received and administered, but pt does not tolerate to have to move to use the urinal, therefore order for Wright obtained and inserted. Pt on 5L O2 per NC, does not tolerate to use oxymask, sats in high 80's to low 90's. Oxycodone given q 4hrs for pain control.
[2016-12-02] MEDS: Albuterol 2.5 mg/3 mL Inhalation Solution NEB PRN ×3 (07:12→20:48)
[2016-12-02] MEDS: predniSONE 10 mg Tablet PO SCH (08:36)
[2016-12-02] MEDS ORDERED: MethylprednisoLONE Sodium Succinate 40 mg/mL Inj IV ONE (15:10)
[2016-12-02] MEDS ORDERED: Albuterol-Ipratropium 3 mL Inhalation Solution NEB PRN (15:10)
--- NOTE | 2016-12-02 16:04 | DRSVH ---
PROCEDURE: CT CHEST WITH CONTRAST ([id number]) INDICATIONS: 76 year-old male with dyspnea, status post recent Vaccutane placement. TECHNIQUE: After the administration of intravenous contrast, 5 mm thick sections acquired from the pulmonary api mina to the posterior costophrenic angles. 7 mm thick coronal and sagittal MIP reformats were acquire d. For radiation dose reduction, the following was used: automated exposure control, adjustment of mA and/or kV according to patient size. COMPARISON: [facility], CT, CT ANGIO CHEST PE, 11/10/2016, 19:32. [facility] , CT, CT CHEST W CON, 11/24/2016, 18:27. FINDINGS: Image quality: Excellent. Lungs and pleura: 5.7 cm masslike lesion in the left perihilar region is again noted, along with bila teral lower lobe predominant nodular interstitial opacities as well as numerous small bilateral pulmo nary nodules. Moderate left pleural effusion is unchanged to slightly decreased in size, with posteri or left pleural drain now present. Small to moderate dependent right pleural effusion has increased i n size, with concomitant compressive atelectasis. No pneumothorax. Mediastinum: Heart size is normal. Small anterior pericardial effusion has increased in size. Multip le enlarged partially calcified mediastinal lymph nodes are again noted. Thoracic aorta and central p ulmonary arteries are normal in size. Esophagus is normal in caliber. No hiatal hernia. Bones and chest wall: Scattered therapy sized thoracic spine sclerotic bone metastases are again note d. No vertebral body compression fractures. Several nonacute posterior left rib fractures are again noted. No axillary or supraclavicular adenopathy by size criteria. Thyroid gland is normal in size. Abdomen: Several calcified gallstones are present. Other visualized upper abdominal solid organs evette ear normal. Upper abdominal bowel loops are normal in caliber. IMPRESSION: 1. Moderate dependent left pleural effusion is unchanged to slightly decreased in size status post in terval basal left pleural drain placement. 2. New small to moderate dependent right pleural effusion is now present, with right lower lobe compr essive atelectasis. Small anterior pericardial effusion has also increased in size. 3. Underlying large left perihilar lung mass again noted, with findings consistent with numerous pulm onary metastases and bilateral lower lung predominant lymphangitic carcinomatosis. Multiple enlarged mediastinal lymph nodes are again noted, consistent with metastases. 4. Multiple sclerotic thoracic spine bony metastases as before, without pathologic compression fractu res. 5. Several small calcified dependent gallstones. Dictated by: Braxton Huang M.D. on 12/02/2016 at 15:51 Approved by: Braxton Huang M.D. on 12/02/2016 at 16:03
[2016-12-02] MEDS: diphenhydrAMINE 25 mg Capsule PO PRN (20:30)
[2016-12-02] MEDS: guaiFENesin 600 mg ER12 Tablet PO SCH (20:30)
--- NOTE | 2016-12-02 21:40 | PCM.PNMED ---
Subjective Date of Service Dec 02, 2016 Subjective Patient is seen and examined. His coughing up a lot of mucousy sputum nonblood. He says that he feels worse now than he did before his vAccutane catheter placement. He sounds raspy, his urine is dark. He is on 5 L of oxygen again. It appears his baseline was 4-5 L at home. is expressing her inability to deal with his needs. Last night he received Lasix, thereafter he was unable to get up without coming severely dyspneic. A Wright catheter is placed. Exam Vital Signs Vital Sign - Last Date Time Temp Pulse Resp B/P Pulse Ox O2 Delivery O2 Flow Rate FiO2 12/02/16 20:59 36.7 84 22 137/72 92 Nasal Cannula 4.00 Intake and Output 12/01/16 12/01/16 12/02/16 Cumulative From/Thru 15:00 23:00 07:00 11/29/16 16:27 - 12/02/16 06:32 Intake Total 600 ml 1419 ml 4089 ml Output Total 400 ml 1175 ml 4375 ml Balance 200 ml 244 ml -286 ml Intake Oral 600 ml 1419 ml 3089 ml IV Total 1000 ml Output Urine Total 400 ml 1175 ml 2875 ml Drainage Total 1500 ml # Voids 5 # Bowel Movements 2 4 Exam Gen.: Patient is mildly distressed HEENT: Normocephalic, atraumatic Lungs: Diffuse rales, raspy sounds although they have been to his neck, increased work of breathing, no wheezing or crackles Heart: Diminished heart sounds Abdomen: Nontender, nondistended, normal bowel sounds Extremities: Positive for trace edema Neurological: No focal deficits Psychiatric: Patient appears anxious Lab and Diagnostics Result Diagram: 11/30/16 0707 12/02/16 0600 X-Rays, CTs and MRIs IMPRESSION: Continued worsening of the appearance of the lung parenchyma, and mediastinal and bilateral hilar masses and the left lung mass. These all were better visualized by recent contrast-enhanced CT scanning 11/24/16 and show documented appreciable gear changer time from a comparison CT 11/10/16. Dictated by: Farhan Cano M.D. on 11/29/2016 at 19:38 12-lead ECG EK beats per minute, sinus rhythm, LA 160, QTC 405. Multiple premature complexes ventricular and supraventricular, "possible anterior septal infarct, age indeterminate." No signs of AV block, ischemia or infarction. Additional Diagnostics DateTimeAnalyzed 17:31:00 -_ pH ____7.460 - 7.350 7.450 pCO2 ___40.3__ -mmHg 35.0 45.0 pO2 ___69.8__ -mmHg 69.0 116 HCO3- ___28.2__ -mmol/L 22.0 26.0 Assessment & Plan 76-year-old gentleman with malignant lung adenocarcinoma, recurrent pleural effusion presents with shortness of breath and feeling like he is going to pass out, his son to be hypoxic in the emergency department and stabilized with supplemental O2, chest x-ray demonstrated worsening findings associated with cancer and pleural effusion. Acute on chronic hypoxic respiratory failure, present on admission ABG was normal, repeat ABG with worsening dyspnea when necessary Plan for further evaluation and treatment with ultrasound-guided thoracentesis. Supplemental oxygen maintain oxygen saturation greater than 92% Keep head of bed elevated for patient comfort CXR 2 view was ordered and reviewed independently by me, does not look concerning for pneumothorax or reaccumulation of pleural fluid. ABG are ordered this AM due to pt complaining of pain and dyspnea: pH7.447 , pCO2 34.9, pO2 69.9, HCO3- 23.7sO2 94.3 WNL Patient continues to be dyspneic. Mucinex 600 mg by mouth twice a day, alvin walsh. Discussed case with Dr. mohamud from pulmonology, he agreed to see the patient in the a.m. per his recommendations Ordered Solu-Medrol 60 mg. Further recommendations pending his examination Chest CTs ordered and is also reviewed "1. Moderate dependent left pleural effusion is unchanged to slightly decreased in size status post interval basal left pleural drain placement. 2. New small to moderate dependent right pleural effusion is now present, with right lower lobe compressive atelectasis. Small anterior pericardial effusion has also increased in size. 3. Underlying large left perihilar lung mass again noted, with findings consistent with numerous pulmonary metastases and bilateral lower lung predominant lymphangitic carcinomatosis. Multiple enlarged mediastinal lymph nodes are again noted, consistent with metastases. 4. Multiple sclerotic thoracic spine bony metastases as before, without pathologic compression fractures. 5. Several small calcified dependent gallstones." -- I have notified Dr. Whitfield of the current developments, made him aware of patient's poor status, failure to progress, pending CT scan. He will see the patient in the a.m. 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 Informed colostomy to Dr. Whitfield, Dr. Friend as Dr. Mandujano is concerned about thevaccutane catheter being covered by insurance. UR says patient will be able to get one week supply after which time he will see Dr. Whitfield, who can order further supplies Patient was admitted 5 days ago with similar symptoms and underwent chest CT, pneumonia workup which was negative at that time. Continue to monitor vitals for signs of sepsis Holding heparin in anticipation of thoracentesis. 12/[address] Whitfield has been contacted, he replied that he is expecting that patient would get a Pleurx catheter Dr Mott from has placed the vaccutae catheter, 700+800 cc were evacuated. Oxycodone and morphine for pain Oxygen sats are baseline this AM (4L) 12/01 CXR 2 view was ordered and reviewed independently by me, does not look concerning for pneumothorax or reaccumulation of pleural fluid. 12/01 Discussed case with Radiologist acquisition marketing coordinator, he sees no reason to get the fluid out again prior to patient meeting with Dr. Whitfield. Dr. Whitfield's office will take over teaching the how to care for the catheter. She appears to be apprehensive, saying she is not comfortable with it. Acute hyponatremia, present on admission, resolved serum sodium 128, no confusion, weakness, or signs of being symptomatic. - Patient states he has not not eaten much today, electrolytes were normal prior to discharge 3 days ago Acute hypochloremia, present on admission, improved Serum chloride 87-->95 Normal saline as above. Crohn's disease, stable, chronic, present on admission Continue with his current medication regimen from outpatient Hypothyroidism, chronic, present on admission Continue with his levothyroxine dosing BPH, chronic, present on admission Continue doxazosin 2 mg by mouth twice a day GERD, chronic, present on admission Famotidine 20 mg by mouth twice a day High Risk Meds: IV Morphine, oxycodone CODE STATUS Full code after discussion with patient and Pain Evaluation: Acetaminophen as needed, continued from ambulatory. Tramadol 50 mg twice a day as needed for breakthrough pain. Social service consult for placement VTE Prophylaxis: SCDs. GI prophylaxis not indicated Pain Evaluation: Adequate Pain Control VTE Prophylaxis: Sub-Q Heparin (Unfractionated), SCDs Resuscitation Status: CPR: Attempt Resuscitation Time spent 30 min Mary Dent DO Dec 02, 2016 21:40
[2016-12-03] VITALS (10 sets, daily range): BP systolic 103–127; BP diastolic 50–68; PULSE 69–92; RESP 18–24; O2SAT 91–94
[2016-12-03] MEDS: Heparin 5,000 Unit/mL Inj SUBQ SCH ×3 (00:51→17:46)
[2016-12-03] MEDS: Albuterol 2.5 mg/3 mL Inhalation Solution NEB PRN ×3 (04:47→19:32)
--- NOTE | 2016-12-03 07:36 | NUR ---
Pain pt with intermittent L pleuritic pain, Oxycodone given q 4hrs with good effect. Pt states that overall he feels a lot better.
[2016-12-03] MEDS: predniSONE 10 mg Tablet PO SCH (08:11)
[2016-12-03] MEDS: guaiFENesin 600 mg ER12 Tablet PO SCH ×2 (08:12→20:23)
[2016-12-03] MEDS ORDERED: 0.9% Sodium Chloride 1,000 ML IV SCH (08:45)
--- NOTE | 2016-12-03 09:02 | PCM.PNMED ---
Subjective Date of Service Dec 03, 2016 Exam Vital Signs Vital Sign - Last Date Time Temp Pulse Resp B/P Pulse Ox O2 Delivery O2 Flow Rate FiO2 12/03/16 08:57 92 12/03/16 08:24 Supplement Oxygen 12/03/16 04:47 22 91 5.00 12/03/16 04:37 36.9 127/68 Intake and Output 12/02/16 12/02/16 12/03/16 Cumulative From/Thru 15:00 23:00 07:00 11/29/16 16:27 - 12/03/16 06:21 Intake Total 840 ml 473 ml 5402 ml Output Total 2650 ml 650 ml 7675 ml Balance -1810 ml -177 ml -2273 ml Intake Oral 840 ml 473 ml 4402 ml IV Total 1000 ml Output Urine Total 2650 ml 650 ml 6175 ml Drainage Total 1500 ml # Voids 5 # Bowel Movements 1 5 Lab and Diagnostics Result Diagram: 11/30/16 0707 12/03/16 0435 X-Rays, CTs and MRIs IMPRESSION: Continued worsening of the appearance of the lung parenchyma, and mediastinal and bilateral hilar masses and the left lung mass. These all were better visualized by recent contrast-enhanced CT scanning 11/24/16 and show documented appreciable oil changer time from a comparison CT 11/10/16. Dictated by: Farhan Cano M.D. on 11/29/2016 at 19:38 12-lead ECG EK beats per minute, sinus rhythm, [place] 160, QTC 405. Multiple premature complexes ventricular and supraventricular, "possible anterior septal infarct, age indeterminate." No signs of AV block, ischemia or infarction. Additional Diagnostics DateTimeAnalyzed 17:31:00 -_ pH ____7.460 - 7.350 7.450 pCO2 ___40.3__ -mmHg 35.0 45.0 pO2 ___69.8__ -mmHg 69.0 116 HCO3- ___28.2__ -mmol/L 22.0 26.0 Assessment & Plan 76-year-old gentleman with malignant lung adenocarcinoma, recurrent pleural effusion presents with shortness of breath and feeling like he is going to pass out, his son to be hypoxic in the emergency department and stabilized with supplemental O2, chest x-ray demonstrated worsening findings associated with cancer and pleural effusion. Acute on chronic hypoxic respiratory failure, present on admission ABG was normal, repeat ABG with worsening dyspnea when necessary Plan for further evaluation and treatment with ultrasound-guided thoracentesis. Supplemental oxygen maintain oxygen saturation greater than 92% Keep head of bed elevated for patient comfort CXR 2 view was ordered and reviewed independently by me, does not look concerning for pneumothorax or reaccumulation of pleural fluid. ABG are ordered this AM due to pt complaining of pain and dyspnea: pH7.447 , pCO2 34.9, pO2 69.9, HCO3- 23.7sO2 94.3 WNL Patient continues to be dyspneic. Mucinex 600 mg by mouth twice a day, alvin walsh. Discussed case with Dr. mohamud from pulmonology, he agreed to see the patient in the a.m. per his recommendations Ordered Solu-Medrol 60 mg. Further recommendations pending his examination Chest CTs ordered and is also reviewed "1. Moderate dependent left pleural effusion is unchanged to slightly decreased in size status post interval basal left pleural drain placement. 2. New small to moderate dependent right pleural effusion is now present, with right lower lobe compressive atelectasis. Small anterior pericardial effusion has also increased in size. 3. Underlying large left perihilar lung mass again noted, with findings consistent with numerous pulmonary metastases and bilateral lower lung predominant lymphangitic carcinomatosis. Multiple enlarged mediastinal lymph nodes are again noted, consistent with metastases. 4. Multiple sclerotic thoracic spine bony metastases as before, without pathologic compression fractures. 5. Several small calcified dependent gallstones." -- I have notified Dr. Whitfield of the current developments, made him aware of patient's poor status, failure to progress, pending CT scan. He will see the patient in the a.m. 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 Informed colostomy to Dr. Whitfield, Dr. Friend as Dr. Mandujano is concerned about thevaccutane catheter being covered by insurance. UR says patient will be able to get one week supply after which time he will see Dr. Whitfield, who can order further supplies Patient was admitted 5 days ago with similar symptoms and underwent chest CT, pneumonia workup which was negative at that time. Continue to monitor vitals for signs of sepsis Holding heparin in anticipation of thoracentesis. 12/[address] Whitfield has been contacted, he replied that he is expecting that patient would get a Pleurx catheter Dr Mott from IR has placed the vaccutae catheter, 700+800 cc were evacuated. Oxycodone and morphine for pain Oxygen sats are baseline this AM (4L) 12/01 CXR 2 view was ordered and reviewed independently by me, does not look concerning for pneumothorax or reaccumulation of pleural fluid. 12/01 Discussed case with Radiologist pet adoption counselor, he sees no reason to get the fluid out again prior to patient meeting with Dr. Whitfield. Dr. Whitfield's office will take over teaching the how to care for the catheter. She appears to be apprehensive, saying she is not comfortable with it. Acute hyponatremia, present on admission, resolved serum sodium 128, no confusion, weakness, or signs of being symptomatic. - Patient states he has not not eaten much today, electrolytes were normal prior to discharge 3 days ago Acute hypochloremia, present on admission, improved Serum chloride 87-->95 Normal saline as above. Crohn's disease, stable, chronic, present on admission Continue with his current medication regimen from outpatient Hypothyroidism, chronic, present on admission Continue with his levothyroxine dosing BPH, chronic, present on admission Continue doxazosin 2 mg by mouth twice a day GERD, chronic, present on admission Famotidine 20 mg by mouth twice a day High Risk Meds: IV Morphine, oxycodone CODE STATUS Full code after discussion with patient and Pain Evaluation: Acetaminophen as needed, continued from ambulatory. Tramadol 50 mg twice a day as needed for breakthrough pain. Social service consult for placement VTE Prophylaxis: SCDs. GI prophylaxis not indicated VTE Prophylaxis: Sub-Q Heparin (Unfractionated), SCDs Resuscitation Status: CPR: Attempt Resuscitation Mary Dent DO Dec 03, 2016 09:02
[2016-12-03] MEDS ORDERED: Dexamethasone 4 mg/mL Inj IVPUSH ONE (09:05)
--- NOTE | 2016-12-03 09:21 | PROG NOTE ---
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 Taxol and carboplatin was discontinued after imaging showed progressive disease. He recently began immunotherapy with pembrolizumab 200 mg IV every three weeks. He has recurrent pleural effusions, which precipitated his current hospitalization on November 29, 2016. He had worsening shortness of breath. He underwent thoracentesis and had placement of a Pleur-X catheter in the left chest wall. He is breathing more comfortably today, but is weak. Complains of occasional chest pain, none currently. OBJECTIVE: Vitals: T 36.9, P 71, R 22, BP 127/98, O2 saturation 91% on 4 L oxygen by OxyMask. HEENT: Conjunctivae pink. Mucous membranes slightly dry. No oral lesions. Nodes, no adenopathy in the neck or axilla. Chest slightly decreased at the left base, rare expiratory wheeze. Cardiac exam regular rate and rhythm with 1/6 systolic ejection murmur across the precordium. Abdomen soft, nontender, with normoactive bowel tones. Extremities no edema, 2+ distal pulses. He has some mild muscular wasting. LABS: Sodium 133, potassium 4.6, BUN 9, creatinine 0.44. Glucose 131. ASSESSMENT AND PLAN: T2 N2 M1 adenocarcinoma of the left upper lung: The patient's pleural effusion was drained. PleurX catheter is in place. The patient and his are unable to manage this at home, and we will need to arrange visits in clinic or at the hospital for drainage on a weekly basis. They will also need a home health nurse to manage his condition at home, or he will have to go to a shelter facility. Recommend physical therapy evaluation to assess his needs. At a minimum, he will need a bedside commode. He has a wheeled walker that he can use as well. Continue management per the hospitalist team. [facility], when he will be due for further immunotherapy. With further disease progression, he would be a candidate for purely palliative care with hospice. However, he only recently began immunotherapy, and would like to allow this a chance to work. Cc: Dr. Mary Dent
--- NOTE | 2016-12-03 15:00 | NUR ---
Social Work-continued d/c planning: Data:EMR reviewed. Pt is on day 4 of hospitalization for acute hypoxia per H&P. Pt is not medically stable anticipate several more days. Oncology Dr. Whitfield saw pt today and he is recommending pt to have PT evaluation to determine if pt will need SNF placement. SW to await PT evaluation. SW to follow up post PT and discuss discharge planning. SW will continue to follow. Assessment:pt who is independent at baseline. Plan:Pt to discharge home with HH vs SNF. Pt to benefit from PT evaluation. SW will continue to follow. MASOUD Garsia
--- NOTE | 2016-12-03 16:26 | NUR ---
Pluerx drain Pt began to have increased work of breathing and increases crackles in lungs. This RN notified MD and drained 975ml from drain. Drainage was dark brown and frothy. Pt c/o extreme lung pain with inspiration after drainage. MD notified. A nurse communication note placed to only drain 300ml PRN for comfort/respiratory distress for future. Patients Sp02 maintained between 90-94% before and after drainage. Pts lungs were still diminished L>R but clear to auscultation after drainage. Pt stated that he felt much better after drainage.
--- NOTE | 2016-12-03 16:36 | PCM.CHPMED ---
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 Patient has a distant 01-teay-rjew smoking history and was diagnosed with stage 4 adenocarcinoma of the left lung in July 2016.He was initially treated with carboplatin and Taxol but treatment was discontinued due to progression of the disease. He was then started on pembrolizumab IV based on PDL-1 tumor marker. He was scheduled to have thoracentesis to drain reoccurring malignant pleural effusion, but presented the day before the procedure to [facility] Emergency Department after experiencing acute and worsening shortness of breath at home. He is on oxygen, 5L at home. He has moderate coughing spells but denies hemoptysis, significant sputum production, chill, fever, nausea, vomiting, myalgia. He is having some chest pain that is worse anteriorly, especially with coughing. He also reports moderate anxiety/panic attacks during his coughing spells. 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 Ultrasound-guided thoracentesis has been performed by Dr. Mott, and a Pleur-X catheter has been placed. He is currently on oxygen 4L, nasal cannula in the hospital. [facility] Past Medical History 1. 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 History of Crohn's disease, status post total colectomy 3. Hypothyroidism 4. BPH 5. GERD 6. Chronic respiratory failure on 5L oxygen at home Other History A comprehensive review of systems was conducted with the patient and found to be negative except as above in the history of present illness. 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 Alcohol Use: NoHx Substance Use: No Hx Tobacco Use: No Smoking Status: Former Smoker (quit smoking 25 years ago) Living Arrangement: with Family Exam Vital Signs Vital Sign - Last Date Time Temp Pulse Resp B/P Pulse Ox O2 Delivery O2 Flow Rate FiO2 12/03/16 10:07 36.8 80 18 119/68 94 Nasal Cannula 4.00 Intake and Output 12/02/16 12/02/16 12/03/16 Cumulative From/Thru 15:00 23:00 07:00 11/29/16 16:27 - 12/03/16 06:21 Intake Total 840 ml 473 ml 5402 ml Output Total 2650 ml 650 ml 7675 ml Balance -1810 ml -177 ml -2273 ml Intake Oral 840 ml 473 ml 4402 ml IV Total 1000 ml Output Urine Total 2650 ml 650 ml 6175 ml Drainage Total 1500 ml # Voids 5 # Bowel Movements 1 5 General: Alert, Oriented X3, Cooperative, No Acute Distress Head: Normal Eyes: EOMI, Scleral Anicteric Mouth: Mucous Membr Moist/[place] Neck: Supple, No Thyromegaly Chest & Lungs: Diminished breath sounds (at the left lower lung), Coarse breath sounds (on the right, posteriorly), Other (Pleur-X catheter, left lower lung field) Cardiovascular: Regular Rate/Rhythm Abdomen: Non-tender, No masses, Soft Genitourinary: Wright Present Extremities: No cyanosis/clubbing/edma bilat Neurological: Grossly Neurologically Intact Lab and Diagnostics Result Diagram: 11/30/16 0707 12/03/16 0435 X-Rays, CTs and MRIs CT CHEST WITH CONTRAST IMPRESSION: 1. Moderate dependent left pleural effusion is unchanged to slightly decreased in size status post interval basal left pleural drain placement. 2. New small to moderate dependent right pleural effusion is now present, with right lower lobe compressive atelectasis. Small anterior pericardial effusion has also increased in size. 3. Underlying large left perihilar lung mass again noted, with findings consistent with numerous pulmonary metastases and bilateral lower lung predominant lymphangitic carcinomatosis. Multiple enlarged mediastinal lymph nodes are again noted, consistent with metastases. 4. Multiple sclerotic thoracic spine bony metastases as before, without pathologic compression fractures. 5. Several small calcified dependent gallstones. Dictated and approved by: Braxton Huang M.D. on 12/02/2016 Assessment & Plan Assessment 1. Acute on chronic respiratory failure 2. Stage 4 metastatic adenocarcinoma of the left upper lobe, status post carboplatin and Taxol for several months, now on pembrolizumab 3. Recurrent malignant, based on cytology from previous thoracentesis (October 2016 ), effusion from metastatic lung adenocarcinoma, status post thoracocentesis and placement of a Pleur-X catheter in the left chest wall 4. Small to moderate dependent right pleural effusion 5. Chronic pneumonitis, most likely due to pembrolizumab Recommendations: This 76-year-old man with stage 4 metastatic adenocarcinoma of the left upper lung, and recurrent malignant left effusion after a few thoracocentesis in the past, who is admitted again with worsening hypoxemia. His CT findings are consistent with persistent left pleural effusion, new right pleural effusion and numerous pulmonary metastasis. Patient is currently status post thoracocentesis on 11/30/16 and PleurX catheter placement. His left pleural effusion has been drained today again, and needs to be drained on a weekly basis. Patient's is not comfortable doing it at home on her own, and she would prefer to have a home nurse come to the house once a week to do that. She would prefer not to have to go to the hospital on a weekly basis due to patient' s weakness and state of health. I would recommend to discharge patient home with Home Health as this is what patient and his prefer at this time. There was also a concern about patient's chest pain and anxiety/panic attacks during coughing. I would recommend to continue Oxycodone, 5 mg every 4 hours as needed as patient reported good response to this medication while in the hospital. Continue management per the hospitalist team. Patient will be scheduled [facility] for further immunotherapy. I will continue to follow this patient during his current admission. Problems: Pain Evaluation: Adequate Pain Control VTE Prophylaxis: Sub-Q Heparin (Unfractionated), SCDs Resuscitation Status: CPR: Attempt Resuscitation Attending Statement I have seen and examined this patient with the resident physician. Vital signs , labs, imaging have been reviewed. I agree with the assessment and plan above. Please refer to my separately dictated progress note for any modifications to above. Rachel Deal M.D. Pulmonary and Critical Care medicine Pager [phone] Noemi Fairchild DO Dec 03, 2016 16:36 Rachel Deal MD Dec 04, 2016 08:07
--- NOTE | 2016-12-03 16:47 | PCM.PNMED ---
Subjective Date of Service Dec 03, [address] Whitfield plans to continue immunotherapy treatments, he states he plans to weekly 500 cc out w/ CXR follow up via vaccutane. lung sounds better, crackles on left side where the catheter is, and dull on right side. Patient christine 4-4.5 L oxygen. PT/Ot is requested. Patient is feeling better, wanting to have his Wright and IV fluids discontinued. Exam Vital Signs Vital Sign - Last Date Time Temp Pulse Resp B/P Pulse Ox O2 Delivery O2 Flow Rate FiO2 12/03/16 16:31 Supplement Oxygen 12/03/16 10:07 36.8 80 18 119/68 94 4.00 Intake and Output 12/02/16 12/02/16 12/03/16 Cumulative From/Thru 15:00 23:00 07:00 11/29/16 16:27 - 12/03/16 06:21 Intake Total 840 ml 473 ml 5402 ml Output Total 2650 ml 650 ml 7675 ml Balance -1810 ml -177 ml -2273 ml Intake Oral 840 ml 473 ml 4402 ml IV Total 1000 ml Output Urine Total 2650 ml 650 ml 6175 ml Drainage Total 1500 ml # Voids 5 # Bowel Movements 1 5 Exam Gen.: Improved mood HEENT: Normocephalic, atraumatic Heart: Regular rate unless serious for sounds Lungs: Crackles are noted on the left side, vaccutane catheter area dressing looks clean Abdomen: Lower abdomen has a abdominal hernia, soft and nontender Extremities: Negative edema Neuro: No focal deficits IVs and Medications Medications Reviewed: Medications were reviewed in detail Lab and Diagnostics Result Diagram: 11/30/16 0707 12/03/16 0435 X-Rays, CTs and MRIs IMPRESSION: Continued worsening of the appearance of the lung parenchyma, and mediastinal and bilateral hilar masses and the left lung mass. These all were better visualized by recent contrast-enhanced CT scanning 11/24/16 and show documented appreciable climate change analyst time from a comparison CT 11/10/16. Dictated by: Farhan Cano M.D. on 11/29/2016 at 19:38 12-lead ECG EK beats per minute, sinus rhythm, OR 160, QTC 405. Multiple premature complexes ventricular and supraventricular, "possible anterior septal infarct, age indeterminate." No signs of AV block, ischemia or infarction. Additional Diagnostics DateTimeAnalyzed 17:31:00 -_ pH ____7.460 - 7.350 7.450 pCO2 ___40.3__ -mmHg 35.0 45.0 pO2 ___69.8__ -mmHg 69.0 116 HCO3- ___28.2__ -mmol/L 22.0 26.0 Assessment & Plan 76-year-old gentleman with malignant lung adenocarcinoma, recurrent pleural effusion presents with shortness of breath and feeling like he is going to pass out, his son to be hypoxic in the emergency department and stabilized with supplemental O2, chest x-ray demonstrated worsening findings associated with cancer and pleural effusion. Acute on chronic hypoxic respiratory failure, present on admission ABG was normal, repeat ABG with worsening dyspnea when necessary Plan for further evaluation and treatment with ultrasound-guided thoracentesis. Supplemental oxygen maintain oxygen saturation greater than 92% Keep head of bed elevated for patient comfort CXR 2 view was ordered and reviewed independently by me, does not look concerning for pneumothorax or reaccumulation of pleural fluid. ABG are ordered this AM due to pt complaining of pain and dyspnea: pH7.447 , pCO2 34.9, pO2 69.9, HCO3- 23.7sO2 94.3 WNL Patient continues to be dyspneic. Mucinex 600 mg by mouth twice a day, alvin walsh. Discussed case with Dr. Hernandez from pulmonology on 12/02, he agreed to see the patient in the a.m. per his recommendations Ordered Solu-Medrol 60 mg. Further recommendations pending his examination Chest CTs ordered and is also reviewed "1. Moderate dependent left pleural effusion is unchanged to slightly decreased in size status post interval basal left pleural drain placement. 2. New small to moderate dependent right pleural effusion is now present, with right lower lobe compressive atelectasis. Small anterior pericardial effusion has also increased in size. 3. Underlying large left perihilar lung mass again noted, with findings consistent with numerous pulmonary metastases and bilateral lower lung predominant lymphangitic carcinomatosis. Multiple enlarged mediastinal lymph nodes are again noted, consistent with metastases. 4. Multiple sclerotic thoracic spine bony metastases as before, without pathologic compression fractures. 5. Several small calcified dependent gallstones." -- Discussed case with Dr. Whitfield, he plans to have cc out it just x- ray follow-up Social work long term placement consult, physical therapy consult Director Microbiology consulted, they have no further recommendations. -- Dexamethasone 2 g IV twice a day Recurrent malignant effusion from metastatic lung adenocarcinoma, acute on chronic, present admission ultrasound-guided thoracentesis therapeutic has been ordered, interventional radiologist contacted, they reviewed the labs with me and continued to do the procedure. Informed colostomy to Dr. Whitfield, Dr. Friend as Dr. Mandujano is concerned about thevaccutane catheter being covered by insurance. UR says patient will be able to get one week supply after which time he will see Dr. Whitfield, who can order further supplies Patient was admitted 5 days ago with similar symptoms and underwent chest CT, pneumonia workup which was negative at that time. Continue to monitor vitals for signs of sepsis Holding heparin in anticipation of thoracentesis. 12/[address] Whitfield has been contacted, he replied that he is expecting that patient would get a Pleurx catheter Dr Mott from IR has placed the vaccutae catheter, 700+800 cc were evacuated. Oxycodone and morphine for pain Oxygen sats are baseline this AM (4L) 12/01 CXR 2 view was ordered and reviewed independently by me, does not look concerning for pneumothorax or reaccumulation of pleural fluid. 12/01 Discussed case with Radiologist national accounts recruiter, he sees no reason to get the fluid out again prior to patient meeting with Dr. Whitfield. Dr. Whitfield's office will take over teaching the how to care for the catheter. She appears to be apprehensive, saying she is not comfortable with it. 12/03 I personally have not ordered any fluid to be drained but nursing has drained 300 mL on 12/03 as they felt patient was dyspneic from it. Acute hyponatremia, present on admission, resolved serum sodium 128, no confusion, weakness, or signs of being symptomatic. - Patient states he has not not eaten much today, electrolytes were normal prior to discharge 3 days ago Acute hypochloremia, present on admission, improved Serum chloride 87-->95 Normal saline as above. Crohn's disease, stable, chronic, present on admission Continue with his current medication regimen from outpatient Hypothyroidism, chronic, present on admission Continue with his levothyroxine dosing BPH, chronic, present on admission Continue doxazosin 2 mg by mouth twice a day GERD, chronic, present on admission Famotidine 20 mg by mouth twice a day High Risk Meds: IV Morphine CODE STATUS Full code after discussion with patient and Pain Evaluation: Acetaminophen as needed, continued from ambulatory. Tramadol 50 mg twice a day as needed for breakthrough pain. Social service consult for placement, physical therapy and order. Upon patient's request for these discontinued as well as IV fluids VTE Prophylaxis: SCDs. GI prophylaxis not indicated VTE Prophylaxis: Sub-Q Heparin (Unfractionated), SCDs Resuscitation Status: CPR: Attempt Resuscitation Mary Dent DO Dec 03, 2016 16:47
[2016-12-03] MEDS: Dexamethasone 4 mg/mL Inj IVPUSH SCH (20:24)
[2016-12-03] MEDS: Polyethylene Glycol (PEG) 17 Gm Powder PO PRN (20:25)
--- NOTE | 2016-12-03 23:22 | CONS ---
[address] [address] CONSULTATION REPORT PATIENT: SURY GROSS : 1940 MR#: [id number] ADMIT: 11/29/2016 JOB ID: [id number] DATE OF SERVICE: 12/03/2016 PULMONARY CONSULTATION: The patient is a 76-year-old man seen in consultation at the request of Dr. Mary Dent for worsening dyspnea in the setting of known stage IV adenocarcinoma of the lung. The patient was seen and evaluated with resident physician, Dr. Analia Fairchild; please refer to her separate detailed note for complete history, past medical history, social history, family history, review of systems and a complete physical exam. A brief note is below. HISTORY OF PRESENT ILLNESS: The patient is a 76-year-old man with stage IV adenocarcinoma of the lung whom I actually saw during a prior recent hospitalization on November 11, 2016. Briefly, he was diagnosed in July 2016 and has been followed by Dr. Whitfield in Oncology. His oncologic history is really summarized in my prior note from November 11. During that visit, we performed a thoracentesis on the left and he had 1.25 L of fluid removed which was subsequently confirmed malignant. Since that time, he has had an additional thoracenteses and eventually a PleurX catheter placed as well on Saturday. He began having worsening shortness of breath and was readmitted yesterday. Workup so far has included a follow-up chest CT that shows no significant changes other than a new right pleural effusion in addition to the left. He had a repeat drainage procedure done today with another 800 cc? of fluid removed and this resulted in severe chest pain. The patient and his really seem quite overwhelmed with everything that is going on, but feels strongly about continuing with his therapies as they are. Past medical history, social history, etc as described above is summarized in separate resident note. His CT chest was reviewed and shows as before left pleural effusion, but now an additional right pleural effusion. ASSESSMENT AND RECOMMENDATIONS: 1. Malignant left pleural effusion. 2. Worsening dyspnea. 3. Chronic hypoxic respiratory failure. 4. Metastatic/stage IV adenocarcinoma of the left lung. RECOMMENDATIONS: This 76-year-old man is currently on a regimen of pembrolizumab for his metastatic adenocarcinoma which has not responded to carboplatin and Taxol. He continues to show signs of progression. It looks like when too much fluid is drained from his left chest, this results in severe pleuritic chest pain which is predictable. I think we should try to limit the drainage and not empty out the chest. Probably, we should try to set a limit such as 500 cc drained about once a week. His is anxious about doing this at home and does not think she can do it, so we will need to logistically figure out where this can be done safely for the patient. I did explain to the patient that I would speak to Radiology who put in the PleurX catheter and also with Dr. Whitfield to make sure we have a good plan in place. With regards to pain management, he is getting oxycodone for pain management and this is helping him quite a bit. So, I think he should go home with enough of a supply of this to last him for a few weeks. I cannot see any other explanation for his ongoing dyspnea that we can intervene on or improve. Certainly, the right pleural effusion, I think, is too small for us to drain and help his symptoms significantly. I will follow up tomorrow, and the patient is hopeful of going home tomorrow as well.
[2016-12-04] MEDS: Heparin 5,000 Unit/mL Inj SUBQ SCH ×2 (00:13→08:30)
[2016-12-04 01:46] VITALS: BP 133/72; PULSE 71; RESP 18; O2SAT 94
--- NOTE | 2016-12-04 04:58 | NUR ---
PAIN Pt has c/o "5-7" pain in L side at pleurex drain site and occasional c/o back pain. Pt has requested prn po pain medication Q4H, doses administered as available. Pt states good pain relief with pain medication. Continue to monitor. Call light in reach. in room. Intentional rounding.
[2016-12-04 05:25] VITALS: BP 128/74; PULSE 70; RESP 18; O2SAT 96
[2016-12-04 08:25] VITALS: PULSE 65; RESP 20; O2SAT 94
[2016-12-04] MEDS: guaiFENesin 600 mg ER12 Tablet PO SCH (08:34)
[2016-12-04] MEDS: Dexamethasone 4 mg/mL Inj IVPUSH SCH (08:35)
[2016-12-04 09:19] VITALS: BP 117/67; PULSE 67; RESP 20; O2SAT 94
[2016-12-04 10:51] VITALS: PULSE 68
[2016-12-04] MEDS ORDERED: SENN-133 PO (12:08)
--- NOTE | 2016-12-04 12:13 | PCM.DC.MED ---
Discharge Summary Date of Service Dec 04, 2016 Dates of Hospitalization Date of Hospital Admission Nov 29, 2016 at 19:59 Date of Discharge: Dec 04, 2016 Providers: Admitting Physician: Perry Fabian MD Primary Care Physician: Oleg Broderick MD Attending Physician: Mary Mendiola DO Consultations Pulmonology, PT/OT, interventional radiology Procedures XRay, CTs & MRIs IMPRESSION: Continued worsening of the appearance of the lung parenchyma, and mediastinal and bilateral hilar masses and the left lung mass. These all were better visualized by recent contrast-enhanced CT scanning 11/24/16 and show documented appreciable exchange engineer time from a comparison CT 11/10/16. Dictated by: Farhan Cano M.D. on 11/29/2016 at 19:38 ECG 12 Lead EK beats per minute, sinus rhythm, OH 160, QTC 405. Multiple premature complexes ventricular and supraventricular, "possible anterior septal infarct, age indeterminate." No signs of AV block, ischemia or infarction. 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 He was then started on pembrolizumab IV based on PDL-1 tumor marker. He was scheduled to have thoracentesis to drain reoccurring malignant pleural effusion, but presented the day before the procedure to [facility] Emergency Department after experiencing acute and worsening shortness of breath at home. He is on oxygen, 5L at home. He has moderate coughing spells but denies hemoptysis, significant sputum production, chill, fever, nausea, vomiting, myalgia. He is having some chest pain that is worse anteriorly, especially with coughing. He also reports moderate anxiety/panic attacks during his coughing spells. 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 Ultrasound-guided thoracentesis has been performed by Dr. Mott, and a Pleur-X catheter has been placed. He is currently on oxygen 4L, nasal cannula in the hospital. Hospital Course 76-year-old gentleman with malignant lung adenocarcinoma, recurrent pleural effusion presents with shortness of breath and feeling like he is going to pass out, his son to be hypoxic in the emergency department and stabilized with supplemental O2, chest x-ray demonstrated worsening findings associated with cancer and pleural effusion. Acute on chronic hypoxic respiratory failure, present on admission ABG was normal, repeat ABG with worsening dyspnea when necessary Plan for further evaluation and treatment with ultrasound-guided thoracentesis. Supplemental oxygen maintain oxygen saturation greater than 92% Keep head of bed elevated for patient comfort CXR 2 view was ordered and reviewed independently by me, does not look concerning for pneumothorax or reaccumulation of pleural fluid. ABG are ordered this AM due to pt complaining of pain and dyspnea: pH7.447 , pCO2 34.9, pO2 69.9, HCO3- 23.7sO2 94.3 WNL Patient continues to be dyspneic. Mucinex 600 mg by mouth twice a day, alvin walsh. Discussed case with Dr. Hernandez from pulmonology on 12/02, he agreed to see the patient in the a.m. per his recommendations Ordered Solu-Medrol 60 mg. Further recommendations pending his examination Chest CTs ordered and is also reviewed "1. Moderate dependent left pleural effusion is unchanged to slightly decreased in size status post interval basal left pleural drain placement. 2. New small to moderate dependent right pleural effusion is now present, with right lower lobe compressive atelectasis. Small anterior pericardial effusion has also increased in size. 3. Underlying large left perihilar lung mass again noted, with findings consistent with numerous pulmonary metastases and bilateral lower lung predominant lymphangitic carcinomatosis. Multiple enlarged mediastinal lymph nodes are again noted, consistent with metastases. 4. Multiple sclerotic thoracic spine bony metastases as before, without pathologic compression fractures. 5. Several small calcified dependent gallstones." -- Discussed case with Dr. Whitfield, he plans to have [id number] cc out it just x- ray follow-up -- Social work group home placement consult, physical therapy consult -- [employer] consulted, they have no further recommendations for this pt at this time. -- Dexamethasone 2 g IV twice a day give him comfort -- Call in a prescription for 20 mg prednisone strip 10 mg. -- On the day of discharge patient was able to saturate fully with 4 L of oxygen , he was able to ambulate 250ft around the floor while constantly monitoring O2 sats on 5 liters O2 nasal cannula. Patient O2 sats were between 88-91 during the walk. --Discussed with dr. Deal, who feels as long as pt can ambulate his baseline distance, he can be discharged home. - We recommend that patient be considered for high flow oxygen in the future if need be via PCP or oncology -The day of discharge patient is relatively doing better, not experiencing severe dyspnea or cough. 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 Informed colostomy to Dr. Whitfield, Dr. Friend as Dr. Mandujano is concerned about thevaccutane catheter being covered by insurance. UR says patient will be able to get one week supply after which time he will see Dr. Whitfield, who can order further supplies Patient was admitted 5 days ago with similar symptoms and underwent chest CT, pneumonia workup which was negative at that time. Continue to monitor vitals for signs of sepsis Holding heparin in anticipation of thoracentesis. 12/[address] Whitfield has been contacted, he replied that he is expecting that patient would get a Pleurx catheter Dr Mott from IR has placed the vaccutae catheter, 700+800 cc were evacuated. Oxycodone and morphine for pain Oxygen sats are baseline this AM (4L) 12/01 CXR 2 view was ordered and reviewed independently by me, does not look concerning for pneumothorax or reaccumulation of pleural fluid. 12/01 Discussed case with Radiologist front end developer javascript html css, he sees no reason to get the fluid out again prior to patient meeting with Dr. Whitfield. Dr. Whitfield's office will take over teaching the how to care for the catheter. She appears to be apprehensive, saying she is not comfortable with it. Patient and agreed to be discharged home with home health care Follow up with Dr. Whitfield on Saturday12/10/16 as previously planned Acute hyponatremia, present on admission, resolved serum sodium 128, no confusion, weakness, or signs of being symptomatic. - Patient states he has not not eaten much today, electrolytes were normal prior to discharge 3 days ago Acute hypochloremia, present on admission, improved Serum chloride 87-->95 Normal saline as above. Crohn's disease, stable, chronic, present on admission Continue with his current medication regimen from outpatient Hypothyroidism, chronic, present on admission Continue with his levothyroxine dosing BPH, chronic, present on admission Continue doxazosin 2 mg by mouth twice a day GERD, chronic, present on admission Famotidine 20 mg by mouth twice a day CODE STATUS Full code after discussion with patient and Exam Vital Signs (Last) Date Time Temp Pulse Resp B/P Pulse Ox O2 Delivery O2 Flow Rate FiO2 12/04/16 10:51 68 12/04/16 09:19 36.7 20 117/67 94 Nasal Cannula 5.00 Exam Gen.: Improved mood HEENT: Normocephalic, atraumatic Heart: Regular rate unless serious for sounds Lungs: diminished throughout, Crackles are noted on the left side, vaccutane catheter area dressing looks clean Abdomen: Lower abdomen has a abdominal hernia, soft and nontender Extremities: Negative edema Neuro: No focal deficits Test 11/29/16 17:30 11/29/16 20:07 11/30/16 07:07 12/02/16 06:00 Prothrombin Time 9.8sec (8.1-12.5) Prothromb Time International Ratio 0.92ratio Troponin T < 0.010ug/L (0.0-0.011) Procalcitonin 0.12ng/mL (0.00-0.08) Hold Benedict Top Tube Received (Received) Urine Color Yellow (YELLOW) Urine Appearance Clear (CLEAR,HAZY) Urine pH 6.0 (5.0-8.0) Urine Specific [place] 1.015 (1.003-1.035) Urine Protein Negativemg/dL (NEG,TRACE) Urine Glucose (UA) Negativemg/dL (NEGATIVE) Urine Ketones Tracemg/dL (NEGATIVE) Urine Occult Blood Negative (NEGATIVE) Urine Nitrite Negative (NEGATIVE) Urine Bilirubin Negative (NEGATIVE) Urine Urobilinogen Normalmg/dL (NORMAL) Urine Leukocyte Esterase Negative (NEGATIVE) Urine RBC 0-2/hpf (0-2) Urine WBC 0-5/hpf (0-5) Urine Epithelial Cells Occasional/hpf (NONE-MOD) Urine Crystals Oxalic acid crystals (NONE Urine Bacteria Few/hpf (NONE-FEW) Urine Hyaline Casts None/lpf (NONE) Urine Granular Casts None seen (NONE SEEN) Urine Waxy Casts None seen (NONE SEEN) Urine Red Blood Cell Casts None seen (NONE SEEN) Urine White Blood Cell Casts None seen (NONE SEEN) Urine Mucus Present (None Seen) Urine Trichomonas None seen (NONE SEEN) Urine Yeast None (NONE SEEN) Urinalysis Comment None Urine Culture Reflexed Not indicated White Blood Count 7.7th/mm3 (3.8-10.1) Red Blood Count 3.92mil/mm3 (4.40-5.80) Hemoglobin 12.5g/dL (13.8-17.2) Hematocrit 37.7% (41.0-50.0) Mean Corpuscular Volume 96.2fL (81-100) Mean Corpuscular Hemoglobin 31.9pg (27.0-35.0) Mean Corpuscular Hemoglobin Concent 33.2% (32.0-37.0) Red Cell Distribution Width 18.9% (12.3-15.4) Platelet Count 163bil/L (150-400) Neutrophils (%) (Auto) 73.2% (40-74) Lymphocytes (%) (Auto) 9.9% (14-46) Monocytes (%) (Auto) 11.2% (4-12) Eosinophils (%) (Auto) 1.9% (0-5) Basophils (%) (Auto) 0.3% (0-3) Magnesium Level 1.6mg/dL (1.6-2.6) Total Bilirubin 0.5mg/dL (0.0-1.2) Aspartate Amino Transf (AST/SGOT) 18U/L (0-50) Alanine Aminotransferase (ALT/SGPT) 10U/L (0-44) Alkaline Phosphatase 109U/L (25-160) Total Protein 4.8g/dL (6.4-8.4) Albumin 3.1g/dL (3.4-5.0) Pro-B-Type Natriuretic Peptide 199.3pg/mL (0-486) Test 12/04/16 05:35 Sodium Level 132mEq/L (134-144) Potassium Level 4.6mEq/L (3.5-5.2) Chloride Level 92mEq/L (97-108) Carbon Dioxide Level 30mmol/L (18-29) Blood Urea Nitrogen 12mg/dL (8-27) Creatinine 0.48mg/dL (0.76-1.27) Estimat Glomerular Filtration Rate 179mL/min (>59) Glucose Level 118mg/dL (60-99) Calcium Level 8.4mg/dL (8.5-10.1) Discharge Medications Discharge Medications Acetaminophen (Acetaminophen) 500 Mg Tablet 1,000 MG PO BIDWM (Reported) Cholecalciferol (Vitamin D3) (Vitamin D) 1,000 Unit Capsule 1,000 UNIT PO QAM ( Reported) Cyanocobalamin (Cyanocobalamin Injection) 1,000 Mcg/1 Ml Vial 1,000 MCG IM Monthly (Reported) Doxazosin Mesylate (Doxazosin Mesylate) 2 Mg Tablet 2 MG PO BID (Reported) Levothyroxine (Levothyroxine) 50 Mcg Tablet 50 MCG PO QAM (Reported) Multivitamin (Multivitamins) 1 Each Capsule 1 EACH PO QAM (Reported) Pembrolizumab (Keytruda) 100 Mg/4 Ml (25 Mg/Ml) Vial 200 MG IV [id number] (Reported ) Prednisone (PredniSONE) 10 Mg Tablet 10 MG PO DAILY (Reported) Ranitidine (Ranitidine) 300 Mg Capsule 300 MG PO BIDWM (Reported) As needed Acetaminophen/Diphenhydramine (Tylenol Pm Ex-Strength Caplet) 500 Mg-25 Mg Tablet 2 TAB PO HS PRN PRN For Pain (Reported) L. Rhamnosus GG/Inulin (Culturelle Chewable Tablet) 10 Billion Cell-200 Mg Tab.chew 1 EACH PO DAILY PRN PRN For Diarrhea or Loose Stool (Reported) Ondansetron ODT (Ondansetron ODT) 8 Mg Tab.rapdis 8 MG PO Q8H PRN PRN For Nausea /Vomiting (Reported) Oxycodone (Roxicodone) 5 Mg Tablet 5 MG PO Q4H PRN PRN For Pain Prescribed by: MARY MENDIOLA DO Sennosides (Senna) 8.6 Mg Tablet 17.2 MG PO BID PRN PRN For Constipation Prescribed by: MARY MENDIOLA DO Tramadol (Tramadol) 50 Mg Tablet 50 MG PO QID PRN PRN For Pain (Reported) Miscellaneous Medications ([oxygen]) 3-4 L NASAL (Reported) Time spent Greater than 30 minutes was spent in preparation of discharge with greater than 50% of that time dedicated to patient counseling and coordination of care. Mary Mendiola DO Dec 04, 2016 12:13
--- NOTE | 2016-12-04 12:14 | PCM.DIMED ---
Discharge Instructions Date of Service Dec 04, 2016 Dates of Hospitalization Nov 29, 2016 at 19:59 Discharge Diagnosis Discharge Diagnosis Malignant Effusions, Lung Adenocarcinoma, Hypothyroidisms, Chron's s/p partial colectomy, BPH, GERD Diet Discharge Diet: Other (general) Call your provider Call your provider for: Fever or Chills, Shortness of breath, Bleeding, Chest pain, Vomitting, Excessive diarrhea, Weakness (unilateral), Other Patient Instructions Patient Instructions Patient will need 4L of oxygen for rest and 4.5 L for ambulation. Follow-up plan Dr. Whitfield will see you 12/10/16. He will determine how much fluid to drain on a weekly basis and will give further instructions. F/U with your PCP in one week. F/U BMP in one week Mary Dent DO Dec 04, 2016 12:13
[2016-12-04] MEDS: Polyethylene Glycol (PEG) 17 Gm Powder PO PRN (12:15)
--- NOTE | 2016-12-04 12:28 | NUR ---
HOSPITAL FOLLOW UP: [facility] and patient has new appointment on 12/06/16 he needs to be there at 130 for labs and then 2PM is with and potentially fluids after that. Also left message for SELINA regarding supplies for drain to get patient through the next two days before he sees . Updated REAL ESTATE SALES ASSOCIATE
--- NOTE | 2016-12-04 13:12 | NUR ---
Evaluation completed. Please go to "Notes" then click on "Assessments and Notes" (bottom left corner of screen). Then select appropriate discipline tab on top of screen.
--- NOTE | 2016-12-04 13:29 | NUR ---
Called to Pt. room to do a home O2 evaluation. Pt. on Home O2 with [facility]hav[facility] and has a portable tank. No assessment/intervention needed.
--- NOTE | 2016-12-04 14:09 | NUR ---
Social Work-discharge: data:EMR reviewed. Pt is on day 5 of hospitalization for acute hypoxia per H&P. pt is medically stable for discharge. UR specialist rescheduled pt's appointment with Dr. [facility] for . SW provided pt and with all this information. PT saw pt and they are recommending HH services. MD order received for RN and PT. SW provided HH choice list and discussed with pt and . They have prior history with [facility] and would like to use them again. SW called Mian Burdick and provided him with referral for RN and PT, access given. VIDHYA also provided Mian with F2F and orders for HH Rn and Pt. Mian confirms they can start care within 48 hours. VIDHYA spoke with Tangela in [facility] regarding pt's plurex drain. Tangela states that she has submitted all the paperwork for the drain for supplies and Dr. Whitfield's office will be handling this outpt. Tangela confirms that they have one day of supplies, but they will likely not need this drained until at their appointment with Dr. Whtifield.VIDHYA informed them of this information. Pt has home O2 through [facility]. Pt and updated and agreeable ot plan. to provide transport home today. All updated and agreeable to plan. Assessment:Pt to benefit from HH. Plan:Pt to discharge home today via POV. F2F and orders provided to [facility] for RN and PT. Pt has appointment on with Dr. Whitfield. Pt has supplies for plurex drain for home and all paperwork has been submitted for home supplies. Dr. Whitfields clinic to manage this outpt. All updated and agreeable to plan. MASOUD Garsia
--- NOTE | 2016-12-04 15:04 | NUR ---
O2 Saturation Walked patient approx. 250ft around the floor while constantly monitoring O2 sats on 5 liters O2 nasal cannula. Patient O2 sats were between 88-91 during the walk.
--- NOTE | 2016-12-04 15:24 | NUR ---
Discharge Patient discharge to home with all belongings at 1522. Explained to patient new medications (oxycodone and Senna), when next medications are due and discharge instructions. Patient verbalized understanding. Dc'd telemetry. Vitals stable. Patient left floor via wheelchair accompanied by AUTOMOBILE INSPECTOR and family with no signs of distress.
[2016-12-06] MEDS ORDERED: OXYC-474 PO (16:55)
== END 2016-12-04 15:23 | disposition home health service (06) | DRG 180 ==
LOC: SED 16:22 → MPC 19:59
PROVIDERS: ADMIT Hospitalist; ATTEND Hospitalist
PROC: 4A033R1 Measurement of Arterial Saturation, Peripheral, Percutaneous Approach (ICD-10-PCS; principal; 2016-11-29)
DX: C34.12 Malignant neoplasm of upper lobe, left bronchus or lung (principal); J96.21 Acute and chronic respiratory failure with hypoxia; C79.51 Secondary malignant neoplasm of bone; E87.1 Hypo-osmolality and hyponatremia; J91.0 Malignant pleural effusion; K50.90 Crohn's disease, unspecified, without complications; E87.8 Other disorders of electrolyte and fluid balance, not elsewhere classified; E03.9 Hypothyroidism, unspecified; N40.0 Benign prostatic hyperplasia without lower urinary tract symptoms; K21.9 Gastro-esophageal reflux disease without esophagitis

== ENCOUNTER 2016-12-05 15:28 | Emergency (ER) | payer MEDICARE, OTHER ==
[~2016-12-05] VITALS: Ht 160 cm; Wt 53.2 kg
[~2016-12-05 15:28] MED LIST changes: +OXYC-474 PO; +SENN-133 PO
[2016-12-05 15:30] VITALS: BP 99/59; PULSE 77; RESP 26; O2SAT 80
--- NOTE | 2016-12-05 16:08 | ED.REPORT ---
HPI-Abd Pain M 40 and Over Date of Service Dec 05, 2016 ED Provider: Radha Witt MD Patient is a 76 year old male with a history of lung cancer on 4L of oxygen at home with reoccurring malignant pleural effusions who presents to the ED complaining of increasing shortness of breath since yesterday. He states that he thinks his PleurX catheter needs to drained. Patient also complains of increasing pain and insomnia due to discomfort. He denies fever. The patient was discharged from [facility] yesterday with a plan to have weekly draining and had his PleurX cath drained two days ago. Nursing Notes Stated Complaint: DRAINAGE/THORACENTESIS Chief Complaint: Male Abdominal Pain Nursing Notes Reviewed: Yes Allergies: Coded Allergies: meperidine (Verified Allergy, Severe, BAD REACTION, high heart rate, ) azathioprine (Verified Allergy, Unknown, 12/05/16) diazepam (Verified Allergy, Unknown, 12/05/16) aspirin (Verified Adverse Reaction, Severe, affects stomach, 12/05/16) lactose (Verified Adverse Reaction, Mild, UNSPECIFIED, 12/05/16) Scheduled Acetaminophen (Acetaminophen) 500 Mg Tablet 1,000 MG PO BIDWM Cholecalciferol (Vitamin D3) (Vitamin D) 1,000 Unit Capsule 1,000 UNIT PO QAM Cyanocobalamin (Cyanocobalamin Injection) 1,000 Mcg/1 Ml Vial 1,000 MCG IM Monthly Doxazosin Mesylate (Doxazosin Mesylate) 2 Mg Tablet 2 MG PO BID Levothyroxine (Levothyroxine) 50 Mcg Tablet 50 MCG PO QAM Multivitamin (Multivitamins) 1 Each Capsule 1 EACH PO QAM Pembrolizumab (Keytruda) 100 Mg/4 Ml (25 Mg/Ml) Vial 200 MG IV [id number] Prednisone (PredniSONE) 10 Mg Tablet 10 MG PO DAILY Ranitidine (Ranitidine) 300 Mg Capsule 300 MG PO BIDWM Scheduled PRN Acetaminophen/Diphenhydramine (Tylenol Pm Ex-Strength Caplet) 500 Mg-25 Mg Tablet 2 TAB PO HS PRN PRN For Pain L. Rhamnosus GG/Inulin (Culturelle Chewable Tablet) 10 Billion Cell-200 Mg Tab.chew 1 EACH PO DAILY PRN PRN For Diarrhea or Loose Stool Ondansetron ODT (Ondansetron ODT) 8 Mg Tab.rapdis 8 MG PO Q8H PRN PRN For Nausea /Vomiting Oxycodone (Roxicodone) 5 Mg Tablet 5 MG PO Q4H PRN PRN For Pain Sennosides (Senna) 8.6 Mg Tablet 17.2 MG PO BID PRN PRN For Constipation Tramadol (Tramadol) 50 Mg Tablet 50 MG PO QID PRN PRN For Pain Miscellaneous Medications ([oxygen]) 3-4 L NASAL General Time Seen by MD: 16:07 Chief Complaint Other (pleurX cath needs draining) Hx Obtained From: Patient Arrived By: Walk-in Sudden in Onset?: Yes Onset Occurred: Yesterday Symptom Duration: Since onset Recent Healthcare: Recent doctor visit, Recent hospitalization Similar Sx Previous: Yes Past Medical History Past Medical History 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 father - "had heart problems" Smoking History Former Smoker Social History Alcohol Use: "Social" Drug Use: Denies drug use Other Social History: Good social support, Local resident Ambulatory Status Independent Review of Systems Review of Systems Note: +diffuse pain Constitutional: Denies: Chills, Fever Respiratory: Reports: Shortness of breath Complete sys rev & neg: except as marked. Skin: Denies Itching, Denies Rash Physical Exam Initial Vital Signs Vital Signs (First) Date Time Temp Pulse Resp B/P Pulse Ox O2 Delivery O2 Flow Rate FiO2 12/05/16 15:30 36.3 77 26 99/59 80 Nasal Cannula 6 Initial VS: Reviewed General/Constitutional: Awake, Alert Respiratory / Chest: Atraumatic, No respiratory distress coarse expiratory and inspiratory breath sounds throughout left anterior chest has a PleurX cath in place Cardiovascular: Heart rate NL, Regular rhythm, Heart sounds NL Abdomen: Atraumatic, Soft Back: Atraumatic, Inspection NL Head / Eyes: Atraumatic, Normocephalic, PERRL, EOMI Skin: Atraumatic, Color NL, No rash, Warm, Dry Neurologic: Oriented X3, Speech NL PICC on the right upper extremity Lower Extremity / Pelvis / MS: Atraumatic, No edema Psychiatric: Affect NL, Mood NL Interpretation & Diagnostics X-Ray Chest Interpretation Chest Xray Interpretation: IMPRESSION: 1. Extensive bilateral airspace disease (left greater than right) is similar to the previous CT. 2. Moderate-sized left and trace right sided pleural effusions. 3. Tubes and lines as described. No pneumothorax. Dictated by: Chalino Lang M.D. on 12/05/2016 at 15:57 Approved by: Chalino Lang M.D. on 12/05/2016 at 16:04 View: Portable, 1 view Interpretation / Wet Read by: Interpret - Radiologist Re-Eval/Medical Decision Med Decision/Clinical Course Patient had improvement of shortness of breath after drainage of 500cc from pluerex catheter. Do not suspect PE,pneumonia or other diagnoses than pleural effusion as cause of patient's symptoms given his familiarity with symptoms and resolution/improvement after drainage. He has follow up with oncologist tomorrow to discuss further managemnt and ongoing drainage. Time of Eval: 19:24 Patient Status: Condition improved Re-Evaluation/Progress Note: Discussed plan for discharge. Patient understands and agrees to plan. All questions were addressed. Counseled Regarding: Diagnosis, Lab results, Need for follow-up, When/why to return to ED Discharge & Departure Primary Impression: Malignant pleural effusion Disposition: Home Vital Signs - All Vital Signs Date Time Temp Pulse Resp B/P Pulse Ox O2 Delivery O2 Flow Rate FiO2 12/05/16 20:16 36.9 77 22 118/56 95 Room Air 12/05/16 18:59 79 17 115/53 93 Nasal Cannula 4 12/05/16 17:30 71 15 94 Nasal Cannula 4 12/05/16 15:30 36.3 77 26 99/59 80 Nasal Cannula 6 )( All Prior VS Reviewed: Yes Condition: Stable Additional Instructions: We drained your PleurX catheter today in the ED. Because this resolved your symptoms we did not do any further workup. If you do not feel better when you get home you should return to the emergency department. Keep your follow up appointment with your doctor tomorrow to discuss a plan regarding draining your catheter. You can continue to take your pain medications as prescribed. Return to the emergency department if you develop any new or concerning symptoms Referrals: Oleg Broderick MD (PCP) Scribe Attestation Portions of this note were transcribed by Haylie Foote. I, Dr. Witt personally performed the history, physical exam and medical decision-making; I reviewed and confirmed the accuracy of the information in the transcribed note. Signed by: Estrada Jones, 12/05/16 copies to: Oleg Broderick MD, Sarah C MD Dec 05, 2016 16:08 Jolanta Foote Dec 05, 2016 16:27
--- NOTE | 2016-12-05 17:05 | DRSVH ---
PROCEDURE: X-RAY CHEST, TWO VIEWS ([id number]) INDICATIONS: SOB TECHNIQUE: 2 views of the chest were acquired. COMPARISON: [facility], CT, CT CHEST W CON, 12/02/2016, 15:40. [facility], C R, XR CHEST 1VW, 12/01/2016, 11:49. FINDINGS: Surgical changes and devices: There is a left-sided chest tube identified. The tip is located at the apex of the left lung. There is a right-sided central line catheter with the tip overlying the conf luence of the right brachiocephalic vein and the superior vena cava. Lungs and pleura: Extensive airspace disease is identified within the lungs bilaterally (left greater than right). There is a moderate-sized left-sided pleural effusion. There may be a small right-donna ed pleural effusion. No pneumothorax is evident. Mediastinum: Mediastinal contours are normal. The heart probably is normal in size, but is obscured by overlying consolidation. Bones and chest wall: No suspicious bony abnormalities. Soft tissues appear unremarkable. IMPRESSION: 1. Extensive bilateral airspace disease (left greater than right) is similar to the previous CT. 2. Moderate-sized left and trace right sided pleural effusions. 3. Tubes and lines as described. No pneumothorax. Dictated by: Chalino Lang M.D. on 12/05/2016 at 15:57 Approved by: Chalino Lang M.D. on 12/05/2016 at 16:04
[2016-12-05 17:30] VITALS: PULSE 71; RESP 15; O2SAT 94
[2016-12-05 18:59] VITALS: BP 115/53; PULSE 79; RESP 17; O2SAT 93
[2016-12-05 20:16] VITALS: BP 118/56; PULSE 77; RESP 22; O2SAT 95
[2016-12-06] MEDS ORDERED: OXYC-474 PO (16:55)
== END 2016-12-05 20:10 | disposition home or self-care (01) ==
LOC: SED 15:28
DX: J91.0 Malignant pleural effusion (principal); E03.9 Hypothyroidism, unspecified; K21.9 Gastro-esophageal reflux disease without esophagitis; Z87.891 Personal history of nicotine dependence; Z88.8 Allergy status to other drugs, medicaments and biological substances; E73.9 Lactose intolerance, unspecified

== ENCOUNTER 2016-12-08 10:14 | Inpatient (IN) | payer MEDICARE, OTHER ==
[~2016-12-08] VITALS: Ht 160 cm; Wt 52.8 kg
[2016-12-08 10:26] VITALS: BP 130/65; PULSE 113; RESP 24; O2SAT 91
--- NOTE | 2016-12-08 10:51 | DRSVH ---
PROCEDURE: X-RAY CHEST ONE VIEW, PORTABLE ([id number]) INDICATIONS: sob/lung ca/hx effusion TECHNIQUE: One view of the chest was acquired. COMPARISON: [facility], CT, CT CHEST W CON, 12/02/2016, 15:40. [facility], C R, XR CHEST 2VW, 12/05/2016, 16:40. [facility], CR, XR CHEST 1VW, 12/01/2016, 11:49. FINDINGS: Surgical changes and devices: There is a posterior medial left pleural drain previously present. Lungs and pleura: No pleural effusions or pneumothorax. Lungs are abnormal with a diffuse pulmonary edema better and also dense consolidation left mid and lower lung, similar to that present 3 days ag o but slightly worsened. Mediastinum: Mediastinal contours appear normal. Heart size is normal. Bones and chest wall: No suspicious bony lesions. Overlying soft tissues appear unremarkable. IMPRESSION: Slight interval worsening of the diffuse mild pulmonary edema pattern with what likely is dense pneumonia of the left mid and lower lung. Left pleural drain in stable position along the posterior medial left hemithorax also seen by recent CT scanning. Dictated by: Farhan Cano M.D. on 12/08/2016 at 10:48 Approved by: Farhan Cano M.D. on 12/08/2016 at 10:49
[2016-12-08 11:40] VITALS: BP 108/56; PULSE 83; RESP 18; O2SAT 95
[2016-12-08 11:45] LABS: Mean Corpuscular Hemoglobin 31.6 pg (27.0-35.0); Mean Corpuscular Volume 97.6 fL (81-100); Platelet Count 193 bil/L (150-400)
[2016-12-08 12:18] LABS: BASOPHILS % (AUTO) 0 % (0-3); EOSINOPHILS % (AUTO) 1 % (0-5); MONOCYTES % (AUTO) 14 % (4-12); NEUTROPHILS % (AUTO) 76 % (40-74)
[2016-12-08 13:30] VITALS: BP 125/61; PULSE 88; RESP 29; O2SAT 94
--- NOTE | 2016-12-08 14:24 | ED.REPORT ---
HPI-General Illness Date of Service Dec 08, 2016 ED Provider: Viktor Gross MD Pt is a 76 year old male with a hx of lung cancer and Crohn's presenting to the ED via EMS complaining of dyspnea. It has been worsening throughout the day today and he thinks it feels like he's fluid overloaded. Associated symptoms include pain with inspiration, loose stools with MiraLAX, and chronic, unchanged abdominal pain. Denies any other notable alleviating or exacerbating factors. He states that this is similar to previous episodes that he has had recently with worsening malignant pleural effusions. Denies nausea, vomiting, headache, numbness, vision changes, speech changes, fever, or chills. He was recently admitted for pleural effusions and was discharged 4 days ago with a drain in place. Nursing Notes Stated Complaint: LUNG CANCER, FLUID OVERLOAD Chief Complaint: Respiratory Distress Nursing Notes Reviewed: Yes Allergies: Coded Allergies: meperidine (Verified Allergy, Severe, BAD REACTION, high heart rate, ) azathioprine (Verified Allergy, Unknown, 12/05/16) diazepam (Verified Allergy, Unknown, 12/05/16) aspirin (Verified Adverse Reaction, Severe, affects stomach, 12/05/16) lactose (Verified Adverse Reaction, Mild, UNSPECIFIED, 12/05/16) Scheduled Cholecalciferol (Vitamin D3) (Vitamin D) 1,000 Unit Capsule 1,000 UNIT PO QAM Cyanocobalamin (Cyanocobalamin Injection) 1,000 Mcg/1 Ml Vial 1,000 MCG IM Monthly Doxazosin Mesylate (Doxazosin Mesylate) 2 Mg Tablet 2 MG PO BID Levothyroxine (Levothyroxine) 50 Mcg Tablet 50 MCG PO QAM Multivitamin (Multivitamins) 1 Each Capsule 1 EACH PO QAM Pembrolizumab (Keytruda) 100 Mg/4 Ml (25 Mg/Ml) Vial 200 MG IV [id number] Prednisone (PredniSONE) 10 Mg Tablet 10 MG PO DAILY Ranitidine (Ranitidine) 300 Mg Capsule 300 MG PO BIDWM Scheduled PRN Acetaminophen (Acetaminophen) 500 Mg Tablet 1,000 MG PO BIDWM PRN PRN For Pain Acetaminophen/Diphenhydramine (Tylenol Pm Ex-Strength Caplet) 500 Mg-25 Mg Tablet 2 TAB PO HS PRN PRN For Pain L. Rhamnosus GG/Inulin (Culturelle Chewable Tablet) 10 Billion Cell-200 Mg Tab.chew 1 EACH PO DAILY PRN PRN For Diarrhea or Loose Stool Oxycodone (Roxicodone) 5 Mg Tablet 5 MG PO Q4H PRN PRN For Pain Tramadol (Tramadol) 50 Mg Tablet 50 MG PO QID PRN PRN For Pain Miscellaneous Medications ([oxygen]) 3-4 L NASAL General Time Seen by MD: 13:30 Chief Complaint Breathing problem Hx Obtained From: Patient, EMS Arrived By: Ambulance Sudden in Onset?: No Onset Occurred: 9 - 12 hours ago Symptom Duration: Since onset Location: : Abdomen Quality: Painful Severity: Current: Moderate Severity: Maximum: Moderate Recent Healthcare: No recent doctor visit, Recent hospitalization Similar Sx Previous: Yes Past Medical History Past Medical History 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 father - "had heart problems" Smoking History Former Smoker Social History Alcohol Use: "Social" Drug Use: Denies drug use Other Social History: Good social support, Local resident Ambulatory Status Independent Review of Systems Reports pain with inspiration Full Review of Systems Constitutional: Denies: Chills, Fever Eyes: Denies: Blurred bilateral, Visual loss bilateral Ears / Nose / Throat: Denies: Earache bilateral, Sinus problem Respiratory: Reports: Pleuritic pain, Shortness of breath Cardiovascular: Denies: Chest pain GI: Reports: Abdominal pain, Diarrhea, Denies: Nausea, Vomiting Male: Denies Hematuria Musculoskeletal: Reports: Back pain (chronic) Hematologic: Denies Bleeding Endocrine: Denies: Polyuria Skin: Denies Rash Allergy / Immune: Denies: Itching Neurologic: Denies: Headache, Numbness, Slurred speech, Unable to speak, Vision change Psychiatric: Denies: Change mental status Complete sys rev & neg: except as marked. Physical Exam Nursing note and vitals reviewed. Constitutional: Cachectic, ill appearing elderly male sitting up in a chair. Appears uncomfortable. Head: Normocephalic and atraumatic. Mouth/Throat: Oropharynx is clear and moist. No oropharyngeal exudate. Eyes: EOM are normal. Pupils are equal, round, and reactive to light. Neck: Supple, no tracheal deviation. Cardiovascular: Normal rate, regular rhythm. Equal and intact distal pulses throughout. Pulmonary/Chest: Increased respiratory effort. Coarse breath sounds bilaterally. Moderate respiratory distress. Abdominal: Soft. No distension. There is no tenderness, rebound, or guarding. Bowel sounds present. Musculoskeletal: Range of motion grossly intact, moving all extremities. No edema or tenderness appreciated. Neurological: AOx3. Grossly nonfocal exam. Strength and sensation intact and equal to bilateral upper and lower extremities. Skin: Warm and dry, no rashes or pallor appreciated. Psychiatric: Somewhat agitated, otherwise appropriate mood and affect. Vital Signs Vital Signs Date Time Temp Pulse Resp B/P Pulse Ox O2 Delivery O2 Flow Rate FiO2 12/08/16 13:30 88 29 125/61 94 Nasal Cannula 12/08/16 11:40 83 18 108/56 95 Nasal Cannula 5 12/08/16 10:26 36.5 113 24 130/65 91 Nasal Cannula 5 Initial VS: Reviewed, Vital signs abnormal Interpretation & Diagnostics Lab Results Interpretation Result Diagram: 12/08/16 1137 12/08/16 1137 Test 12/08/16 11:37 White Blood Count 12.1th/mm3 (3.8-10.1) Red Blood Count 3.76mil/mm3 (4.40-5.80) Hemoglobin 11.9g/dL (13.8-17.2) Hematocrit 36.7% (41.0-50.0) Mean Corpuscular Volume 97.6fL (81-100) Mean Corpuscular Hemoglobin 31.6pg (27.0-35.0) Mean Corpuscular Hemoglobin Concent 32.4% (32.0-37.0) Red Cell Distribution Width 17.9% (12.3-15.4) Platelet Count 193bil/L (150-400) Neutrophils (%) (Auto) 76% (40-74) Lymphocytes (%) (Auto) 5% (14-46) Monocytes (%) (Auto) 14% (4-12) Eosinophils (%) (Auto) 1% (0-5) Basophils (%) (Auto) 0% (0-3) Band Neutrophils % 4% (1-5) Sodium Level 127mEq/L (134-144) Potassium Level 4.5mEq/L (3.5-5.2) Chloride Level 88mEq/L (97-108) Carbon Dioxide Level 26mmol/L (18-29) Blood Urea Nitrogen 11mg/dL (8-27) Creatinine 0.46mg/dL (0.76-1.27) Estimat Glomerular Filtration Rate 188mL/min (>59) Glucose Level 193mg/dL (60-99) Calcium Level 8.4mg/dL (8.5-10.1) Total Bilirubin 0.4mg/dL (0.0-1.2) Aspartate Amino Transf (AST/SGOT) 20U/L (0-50) Alanine Aminotransferase (ALT/SGPT) 10U/L (0-44) Alkaline Phosphatase 126U/L (25-160) Total Protein 5.2g/dL (6.4-8.4) Albumin 2.4g/dL (3.4-5.0) X-Ray Chest Interpretation Chest Xray Interpretation: IMPRESSION: Slight interval worsening of the diffuse mild pulmonary edema pattern with what likely is dense pneumonia of the left mid and lower lung. Left pleural drain in stable position along the posterior medial left hemithorax also seen by recent CT scanning. Dictated by: Farhan Cano M.D. on 12/08/2016 at 10:48 View: Portable, 1 view Interpretation / Wet Read by: Interpret - Radiologist Re-Eval/Medical Decision Med Decision/Clinical Course In summary, 76-year-old male with multiple recent admissions for malignant pleural effusions related to his lung cancer presenting to the ED for evaluation of worsening dyspnea. Differential includes pleural effusion, PE, ACS, pneumonia, CHF or COPD exacerbation, etc. He denies any chest pain or pressure at this time. PE is a possibility, however the patient states that his symptoms feel exactly like his previous episodes with fluid overload and malignant pleural effusions; given that his blood pressure is normal at this time, I do not feel the need to emergently image him for a PE right now, however this may need to be reconsidered if no improvement. His EKG demonstrates sinus rhythm with no acute ischemic changes appreciated. Troponin negative. Chest x-ray shows interval worsening of his pulmonary edema pattern with a dense pneumonia of the left mid and lower lung. Laboratory studies notable for a white blood cell count of 12.1, hemoglobin 11.9, sodium 127. Given the above findings, the patient was started on Levaquin for healthcare associated pneumonia. He may also need a repeat thoracentesis. I discussed the plan with the admitting team and the patient. Family agreeable to the plan as stated, no further questions. Time of Eval: 15:02 Patient Status: Condition improved Re-Evaluation/Progress Note: Performed physical exam and discussed plan for admission. Pt understands and agrees. Consultation : Referral / Consult Name: Justin Ladd MD Consulted With: Hospitalist Call Returned at: 14:38 Social Media Marketing Manager: Will see patient, Agrees with plan, Accepts admit Counseled Regarding: Diagnosis, Lab results, Need for admission Discharge & Departure Primary Impression: Malignant pleural effusion Additional Impressions: Respiratory distress Healthcare-associated pneumonia Disposition: ADMITTED TO HOSPITAL Discharge Condition All VS Reviewed: Yes Condition: Stable Referrals: Oleg Broderick MD (PCP) [place] Attestation Portions of this note were transcribed by Dana Briceño. I, Dr. Gross personally performed the history, physical exam and medical decision-making; I reviewed and confirmed the accuracy of the information in the transcribed note. Signed by: Estrada Pisano, 12/08/2016. copies to: Oleg Broderick MD, William B MD Dec 08, 2016 14:23 DANA BRICEÑO Dec 08, 2016 14:25 Viktor Gross MD Dec 08, 2016 14:23 DANA BRICEÑO Dec 08, 2016 14:25
[2016-12-08] MEDS ORDERED: levoFLOXacin Inj 750 MG in IV Premix 1 EACH IV ONE (15:10)
[2016-12-08] MEDS ORDERED: ALBU8.5H2 INHALATION (16:31)
[2016-12-08 18:11] VITALS: PULSE 93
[2016-12-08] MEDS ORDERED: Ondansetron 2 mg/mL 2 mL Inj IVPUSH PRN (18:30)
--- NOTE | 2016-12-08 18:40 | PCM.HPMED ---
Subjective Date of Service Dec 08, 2016 Primary Provider: Admitting Physician: Justin Ladd MD Primary Care Physician: Oleg Broderick MD Attending Physician: Justin Ladd MD Admit Status: From the Emergency Department, 23-Hour Observation, [facility] Telemetry Chief Complaint: Shortness of breath History of Present Illness: This is a 76-year-old gentleman with a history of stage IV adenocarcinoma of the long, T2 N2 M1. He has known bone metastases as well as a recurrent left sided pleural effusion. The patient has a Pleurx drain which has been used 34 drainage. He tolerates 250 mils of output at a time. He has increased pain if too much fluid is drained. The patient has 3-4 days of progressive dyspnea without cough. His acute on chronic pleuritic left-sided chest pain. He presented to the ER as instructed and instead of having the fluid drained he was admitted observation status for ongoing care. He denies fevers or chills. No abdominal pains. He does have progressive anorexia. No nausea or vomiting. He denies any skin rash. No falls or trauma. He continues to have difficulty understanding his grim prognosis. He was treated with Taxol and carboplatin for several months with progression of disease and recently is starting an amino modulator pembrolizumab. Review of Systems: He is having some fatigue which is progressive as well as weight loss. Some anxiety and depression. He does have chronic BPH with difficulty with urination including urgency and polyuria. All else reviewed and otherwise unremarkable except as noted in history of present illness. Allergies Coded Allergies: meperidine (Verified Allergy, Severe, BAD REACTION, high heart rate, ) azathioprine (Verified Allergy, Unknown, 12/05/16) diazepam (Verified Allergy, Unknown, 12/05/16) aspirin (Verified Adverse Reaction, Severe, affects stomach, 12/05/16) lactose (Verified Adverse Reaction, Mild, UNSPECIFIED, 12/05/16) Home Medications Cholecalciferol (Vitamin D3) (Vitamin D) 1,000 Unit Capsule 1,000 UNIT PO QAM Cyanocobalamin (Cyanocobalamin Injection) 1,000 Mcg/1 Ml Vial 1,000 MCG IM Monthly Doxazosin Mesylate (Doxazosin Mesylate) 2 Mg Tablet 2 MG PO BID Levothyroxine (Levothyroxine) 50 Mcg Tablet 50 MCG PO QAM Multivitamin (Multivitamins) 1 Each Capsule 1 EACH PO QAM Pembrolizumab (Keytruda) 100 Mg/4 Ml (25 Mg/Ml) Vial 200 MG IV [id number] Prednisone (PredniSONE) 10 Mg Tablet 10 MG PO DAILY Ranitidine (Ranitidine) 300 Mg Capsule 300 MG PO BIDWM Scheduled PRN Acetaminophen (Acetaminophen) 500 Mg Tablet 1,000 MG PO BIDWM PRN PRN For Pain Acetaminophen/Diphenhydramine (Tylenol Pm Ex-Strength Caplet) 500 Mg-25 Mg Tablet 2 TAB PO HS PRN PRN For Pain L. Rhamnosus GG/Inulin (Culturelle Chewable Tablet) 10 Billion Cell-200 Mg Tab.chew 1 EACH PO DAILY PRN PRN For Diarrhea or Loose Stool Oxycodone (Roxicodone) 5 Mg Tablet 5 MG PO Q4H PRN PRN For Pain Tramadol (Tramadol) 50 Mg Tablet 50 MG PO QID PRN PRN For Pain Miscellaneous Medications ([oxygen]) 3-4 L NASAL PMH Adenocarcinoma the lung, T2 N2 M1. Recurrent left-sided pleural effusion Volume metastases Crohn's disease Benign prostate upper trip. Gastroesophageal reflux disease Chronic respiratory failure with hypoxia, home oxygen. Surgical History Partial colectomy for Crohn's Laminectomy Pleurx drain placement left chest. Family History Positive for Crohn's, mother Social History Occupation: retired Hx Alcohol Use: No Hx Substance Use: No Hx Tobacco Use: No Smoking Status: Former Smoker Living Arrangement: with Family Exam Vital Signs Vital Sign - Last Date Time Temp Pulse Resp B/P Pulse Ox O2 Delivery O2 Flow Rate FiO2 12/08/16 18:11 93 12/08/16 13:30 29 125/61 94 Nasal Cannula 12/08/16 11:40 5 12/08/16 10:26 36.5 Exam Oriented 3. No distress. Fluent speech. Normal affect. Somewhat anxious. Normal skull. Visual wasting. Normal nose and ears. Anicteric sclera, symmetric pupils Oropharynx is unremarkable, no facial droop. Neck is supple, normal thyroid. No adenopathy. Lungs are clear, normal effort rate. Decreased breath sounds in the left base with some expiratory wheezing. Dull to percussion left base. Pleurx drain in place left chest Heart is regular without murmur gallop or rub. Abdomen soft, nondistended or tender. Extremities are free of pedal edema. Good radial and pedal pulses. Skin is free of rash, lesions. No petechiae or ecchymosis. Joints are grossly normal. Cranial nerves are grossly normal. Motor strength is normal in all extremities. Normal muscular tone. Lab and Diagnostics Result Diagram: 12/08/16 1137 12/08/16 1137 Assessment & Plan #. Recurrent left-sided malignant pleural effusion, POA and active. Will drain 250 mils with a Pleurx drain kit [employer]. #. Stage IV adenocarcinoma of lung, T2 N2 M1. POA and active. No treatment while in hospital. #. Benign prostate hypertrophy, POA and stable. Continue usual medications. #. Acute on chronic respiratory failure with hypoxia, POA and active. Titrate oxygen as needed and drain pleural effusion. Patient remains full resuscitation Patient continues to have difficulty understanding realities of his prognosis. He is admitted observation status with one night length of stay anticipated Resuscitation Status: CPR: Attempt Resuscitation Time spent 40 minutes Justin Ladd MD Dec 08, 2016 18:40
--- NOTE | 2016-12-08 18:50 | NUR ---
PleurX catheter accessed and drained at 1845. Pt and report usual amount removed is about 450-500ml and pt "knows" when it is enough "because he can feel it". Access cleansed with supplied from kit and catheter connected. 500ml thin dark bloody colored fluid removed with catheter disconnected, cleansed and recapped. Pt appears to have tolerated well, requests pain meds as last dose was much earlier while in the ED.
[2016-12-08] MEDS: Alum-Mag Hydrox-Simeth 30 mL Suspension PO PRN (19:00)
[2016-12-08] MEDS: Heparin 5,000 Unit/mL Inj SUBQ SCH (19:07)
[2016-12-08] MEDS: 0.9% Sodium Chloride 1,000 ML IV SCH (19:07)
[2016-12-08 20:04] VITALS: BP 136/83; PULSE 99; RESP 36; O2SAT 91
[2016-12-08 23:33] VITALS: BP 137/72; PULSE 100; RESP 25; O2SAT 93
[2016-12-09] VITALS (17 sets, daily range): BP systolic 123–163; BP diastolic 66–82; PULSE 80–101; RESP 22–28; O2SAT 88–94
[2016-12-09] MEDS: Albuterol 2.5 mg/3 mL Inhalation Solution NEB PRN ×8 (01:00→22:58)
[2016-12-09] MEDS: Heparin 5,000 Unit/mL Inj SUBQ SCH ×3 (01:29→16:30)
[2016-12-09] MEDS ORDERED: PEMBROLIZUMAB 200 MG IV SCH (01:35)
[2016-12-09] MEDS ORDERED: Lactobacillus Rhamnosus 10 Bil Unit Capsule PO PRN (01:35)
--- NOTE | 2016-12-09 05:56 | NUR ---
Respiratory/Skin: Pt. complaining of chronic SOB, increased SOB with activity. At start of shift, pt. having difficulty maintaining oxygen saturation above 87% on 6L nasal cannula, pt. quickly changed to oxymask, oxygen titrated up to 10L to achieve saturations of 90-91%. Pt. maintained SpO2: 90-91% throughout shift on 10L oxymask. Left chest pleurex catheter in place. Pleurex catheter drained by day shift RN. Pt. has redness and excoriation present to sacrum, mepilex applied. Pt. educated regarding importance of position changes and turning q2 hr, despite education, pt. refused q2 turning and was resistant to position changes (prefers to lay supine).
[2016-12-09] MEDS: predniSONE 10 mg Tablet PO SCH (08:27)
--- NOTE | 2016-12-09 08:43 | PCM.PNMED ---
Subjective Date of Service Dec 09, 2016 Subjective Patient is been mostly dyspneic throughout the night. He is having some pleuritic left-sided chest pain. 500 mL of serosanguineous fluid was removed from his Pleurx last evening. He does have a dry cough. Audible wheezing is heard. Positive anorexia but no nausea. Some diffuse abdominal pain. But no diarrhea. No additional overnight events noted. Exam Vital Signs Vital Sign - Last Date Time Temp Pulse Resp B/P Pulse Ox O2 Delivery O2 Flow Rate FiO2 12/09/16 08:15 36.7 91 28 163/70 91 OxyMask 10.00 Intake and Output 12/08/16 12/08/16 12/09/16 Cumulative From/Thru 15:00 23:00 07:00 12/08/16 10:26 - 12/09/16 06:32 Intake Total 958 ml 958 ml Output Total 500 ml 500 ml Balance 458 ml 458 ml Intake Oral 400 ml 400 ml IV Total 558 ml 558 ml Output Urine Total 500 ml 500 ml # Bowel Movements 1 1 Exam Alert and oriented -3, outer distress with oxygen mask on. The patient does have fluent speech. He does appear chronically ill. Anicteric sclera. Lungs are wheezy with tachypnea and increased work of breathing. The patient does have prolonged expiratory phase in all lung morfin. Heart is regular without murmur gallop or rub Abdomen soft nontender, flat Extremities are free of edema. Skin is free of rash or lesions. Left chest Pleurx drain in place IVs and Medications Medications Reviewed: Medications were reviewed in detail Lab and Diagnostics Result Diagram: 12/08/16 1137 12/08/16 1137 Assessment & Plan #. Recurrent left-sided malignant pleural effusion, POA and active. Drain 500 mg last evening. The issue remains dyspneic. We will reevaluate with a chest x -ray to see if his reaccumulated. #. Acute on chronic respiratory failure with hypoxia, POA and active. The patient remains full code and intubated. He is having ongoing respiratory distress with evidence of reactive airways. Will increase frequency of bronchodilators to every 2 hours and reevaluate chest x-ray. We will reconsider pneumonia as well. He was given antibiotics about 18 hours ago for possible pneumonia. #. Stage IV adenocarcinoma of lung, T2 N2 M1. POA and active. No treatment while in hospital. #. Benign prostate hypertrophy, POA and stable. Continue usual medications. al effusion. Patient remains full resuscitation Patient continues to have difficulty understanding realities of his prognosis. He is admitted observation status with one night length of stay anticipated, the patient will change to inpatient status at this time and to the posterior and likely additional 2 more nights. Resuscitation Status: CPR: Attempt Resuscitation Justin Ladd MD Dec 09, 2016 08:43
--- NOTE | 2016-12-09 10:25 | DRSVH ---
PROCEDURE: X-RAY CHEST ONE VIEW, PORTABLE ([id number]) INDICATIONS: dyspnea TECHNIQUE: One view of the chest was acquired. COMPARISON: [facility], CR, XR CHEST 1VW (PORTABLE), 12/08/2016, 10:26. FINDINGS: Surgical changes and devices: Left apical thoracostomy tube and right PICC are unchanged. Lungs and pleura: Dense consolidation persists at the left lung base. Diffuse interstitial opacities are slightly decreased when compared with yesterday's study. No pneumothorax. Mediastinum: Mediastinal contours appear normal. Heart size is normal. Bones and chest wall: No suspicious bony lesions. Overlying soft tissues appear unremarkable. IMPRESSION: 1. Persistent left basilar consolidation. 2. Slightly improved aeration suggesting diuresis. Dictated by: Negin Mott M.D. on 12/09/2016 at 10:22 Approved by: Negin Mott M.D. on 12/09/2016 at 10:23
[2016-12-09] MEDS: Polyethylene Glycol (PEG) 17 Gm Powder PO PRN (11:08)
--- NOTE | 2016-12-09 12:26 | NUR ---
Inpatient status effective today, ADELA signed.
--- NOTE | 2016-12-09 14:34 | NUR ---
Social Work- Initial Assessment/Multidisciplinary Rounds Data: See Initial Assessment for additional information. Pt is a 76 year old male admitted 12/08/16 for malignant pleural effusion, respiratory distress. Pt's insurance is [employer]. Pt's designated d/c planning social contact worker is Yodit Juarez, . Pt's readmit risk score is 4. Pt discussed in multidisciplinary rounds- pt is now open to hospice informational visit, hospice order acknowledged. Pt is on 10 L O2 at this time. SW met with pt and pt's granddaughter Ana in the lobby (at and granddaughters request) regarding d/c planning and hospice referral. Pt was not involved in this assessment. Pt resides in [place] with his in a home with no steps. Pt's capacity for self-care assessed. Pt's prior level of functioning involved being independent with ADLs and self-care. Pt uses a walker at baseline. SW discussed with pt's and granddaughter that pt will likely require increased care at home as his disease progresses. Pt has home O2 through [facility], 5L O2 is baseline. Pt has history of [facility] services. Pt has no SNF history. Pt has no LTC or VA benefits. Pt currently has a Pleurex drain and pt's is nervous about managing this at home. When placement in a facility in addition to hospice was discussed to assist with pt's nursing needs, pt's adamantly denied any desire to place pt in any type of facility. Pt's is very intent on caring for him at home with the support of hospice and private caregivers. Pt's confirmed that she would be able to hire private caregivers if she needed to in addition to hospice. Hospice Choice List provided, pt's wants to discuss with her son the different options but she stated she is likely to choose [facility] as that is [place]. Later in room, SW provided phone number on whiteboard. All updated and agreeable to hospice informational visit, SW awaiting hospice choice. SW will continue to follow. Assessment: Pt who will receive hospice informational visit. Plan: Pt to receive hospice informational visit once agency choice has been made. SW awaiting hospice choice. SW will continue to follow. MASOUD Soto Addendum: 12/09/16 at 1443 by DAVE FERNANDEZ SS Amended: Links added. Addendum: 12/09/16 at 1547 by DAVE FERNANDEZ SS Pt's called [employer] phone regarding hospice referral choice. Pt's chose [facility] for informational visit. T/C to [facility] and provided referral to [facility] referral service. Pt's phone number provided as social contact worker. SW will continue to follow. MASOUD Soto
[2016-12-09] MEDS: 0.9% Sodium Chloride 1,000 ML IV SCH (15:24)
--- NOTE | 2016-12-09 17:14 | NUR ---
Respiratory The patient has struggled to breathe throughout the day. He has been on 10L of O2 via Oxymask today with an SpO2 reading of high 80s to low 90s. Has increased shortness of breath with activity. Auscultation: course throughout. Coughing up thick yellow mucous per pt. Respiratory Therapy (RT) has been called several times to administer breathing treatments. Respiratory Therapist Jordon Khalil says his lungs sound a little better this evening. RT gave him a flutter valve and provided education so he could use it to open up his airways. Family and patient grateful. Care continues.
[2016-12-09] MEDS: Cefepime Inj 1,000 MG in Dextrose 5% Minibag Plus 50 ML IV SCH (19:54)
[2016-12-10] VITALS (13 sets, daily range): BP systolic 118–165; BP diastolic 70–88; PULSE 75–105; RESP 22–36; O2SAT 84–95
[2016-12-10] MEDS: Heparin 5,000 Unit/mL Inj SUBQ SCH ×3 (00:05→17:58)
[2016-12-10] MEDS: Albuterol 2.5 mg/3 mL Inhalation Solution NEB PRN ×5 (03:17→21:35)
--- NOTE | 2016-12-10 06:16 | NUR ---
Pain: Pt. complaining of 8-9/10 thoracic cavity pain intermittently during shift (more often than not). Pt. medicated with PRN oxycodone, PRN tramadol, and one dose of PRN Morphine. Pt. appears to be sleeping soundly in room between medication administration times. Pt. states that he has "actually gotten some sleep tonight". Attempted to reposition pt., however pt. refuses and prefers to lay in bed supine with head of bed elevated.
[2016-12-10] MEDS ORDERED: Sodium Chloride LOK Flush 10 mL Syringe IVFLUSH PRN ×2 (06:25)
[2016-12-10] MEDS: Cefepime Inj 1,000 MG in Dextrose 5% Minibag Plus 50 ML IV SCH ×2 (07:59→20:10)
[2016-12-10] MEDS: predniSONE 10 mg Tablet PO SCH (10:28)
[2016-12-10] MEDS: 0.9% Sodium Chloride 1,000 ML IV SCH (10:28)
--- NOTE | 2016-12-10 11:29 | NUR ---
Took over patient care from Gema Simon [id number]
--- NOTE | 2016-12-10 11:36 | NUR ---
Social Work: Continued Discharge Planning/Multidisciplinary Rounds D: Pt discussed in multidisciplinary rounds; hospice referral has been made for an info visit however a time has not yet been determined. The patient's discharge needs are unknown at this time and will need to be assessed pending whether pt's chooses to sign consents with hospice versus continue with with treatment. Pt may require penitentiary care to manage his Plurex drains. t/c to [facility] to inquire about pt's info visit. Requested a return phone call with information and visit time. A: Pt who lives at home with his spouse and was previously open with [facility] P: Evolving; BUILDING ASSOCIATE to continue to follow to assess for pt's discharge needs and coordinate hospice info visit for the patient. MASOUD Miner
--- NOTE | 2016-12-10 13:39 | NUR ---
NUTRITION ASSESSMENT Assess: 76 YO M admitted for malignant pleural effusion. Pt on general diet with bites X 1 meal. Plan for hospice info visit. PMHX: Lung cancer, recurrent pleural effusion, Crohn's disease, GERD, BPH, chronic respiratory failure. DIET: General. PO intake bites X 1 meal. LABS: Na 132, Cr 0.49, Glu 168, Ca 8.0, Alb 2.5 MEDICATIONS: Reviewed. Prednisone, Vit D, Multivitamin, miralax. GI: 1 BM 12/10. SKIN: No issues noted. ANTHROPOMETRICS: Wt: 52.8 kg, BMI 20.6 kg/m2, Admit wt: 52.9 kg. ESTIMATED NEEDS: CANCER Calories: 7369-3457 kcal/day (25-30 kcal/kg BW) Protein: 53-79 g/day (1.0-1.5 g/kg BW) NUTRITION DIAGNOSIS: 1) Inadequate oral intake related to decreased ability to consume sufficient energy as evidenced by PO bites X 1 meal. INTERVENTION: 1) Will await plan of care decisions. 2) If PO intake remains poor, will consider adding nutrition supplements. MONITOR/EVALUATE: PO intake, diet tolerance, supp. needs, labs, GI/nutrition status. Follow per moderate nutrition risk guidelines.
--- NOTE | 2016-12-10 15:30 | PCM.PNMED ---
Subjective Date of Service Dec 10, 2016 Subjective Continues to have Pleurx drain, 250 mL today with some relief. Per 's morphine administration resulted in hallucination type symptoms, remains somewhat anxious with some pain. Continues to take oral oxycodone and scheduled time with some effect. Patient states overall he feels okay and states he is ready to go home. Patient and met with hospice today and have decided to enter into this program. Currently attempting to obtain a hospital bed and other necessities for home with anticipated discharge either tomorrow 12/11/2016 or the following day. Exam Vital Signs Vital Sign - Last Date Time Temp Pulse Resp B/P Pulse Ox O2 Delivery O2 Flow Rate FiO2 12/10/16 14:50 97 36 94 OxyMask 13.00 12/10/16 12:48 125/73 12/10/16 07:46 36.3 Intake and Output 12/09/16 12/09/16 12/10/16 Cumulative From/Thru 15:00 23:00 07:00 12/08/16 10:26 - 12/10/16 06:41 Intake Total 1277 ml 1159 ml 3394 ml Output Total 675 ml 300 ml 1475 ml Balance 602 ml 859 ml 1919 ml Intake Oral 780 ml 400 ml 1580 ml IV Total 497 ml 759 ml 1814 ml Output Urine Total 675 ml 300 ml 1475 ml # Bowel Movements 2 1 4 Exam General: Awake and alert lying in hospital bed in mild distress, under nourished , Oxymizer mask in place with obvious increased work of breathing HEENT: Normocephalic, atraumatic. External ears without defect. Pupils equal, round, and reactive to light and accommodation. Neck: No jugular venous distension. Cardiovascular: Tachycardic rate with regular rhythm no murmurs Pulmonary: Synthroid and Expiratory crackles with diminished lung sounds, increased work of breathing and accessory muscle usage. Abdomen: Soft, nontender, nondistended. Extremities: No clubbing, cyanosis, edema. Skin: Normal temperature, turgor, and texture Neurological: Cranial nerves grossly intact. Psychiatric: Normal mood and affect. Alert and oriented to person, place, and time. IVs and Medications Medications Reviewed: Medications were reviewed in detail Lab and Diagnostics Result Diagram: 12/08/16 1137 12/10/16 1205 X-Rays, CTs and MRIs . X-RAY CHEST ONE VIEW, PORTABLE IMPRESSION: Slight interval worsening of the diffuse mild pulmonary edema pattern with what likely is dense pneumonia of the left mid and lower lung. Left pleural drain in stable position along the posterior medial left hemithorax also seen by recent CT scanning. Dictated by: Farhan Cano M.D. on 12/08/2016 X-RAY CHEST ONE VIEW, PORTABLE IMPRESSION: 1. Persistent left basilar consolidation. 2. Slightly improved aeration suggesting diuresis. Dictated by: Negin Mott M.D. on 12/09/2016 Assessment & Plan 76 male with past medical history stage IV adenocarcinoma admitted for respiratory distress secondary to malignant pleural effusions possible healthcare associated pneumonia. Recurrent left-sided malignant pleural effusion, POA and active. -Remains dyspneic with supplemental oxygen requirements to maintain saturations -Continue with Pleurx drains 250 mL this morning, we will repeat 250 mL during this afternoon -Continue duo nebs every 2 when necessary -10 mg prednisone daily Acute on chronic respiratory failure with hypoxia, POA and active. -Patient visited with hospice care today, plan is to transition home under hospice care tomorrow or the following day -Bronchodilators as above -Possible underlying pneumonia, antibiotics include cefepime Stage IV adenocarcinoma of lung, T2 N2 M1. POA and active. -No treatment while in hospital -Changes in the hospice care as above Benign prostate hypertrophy, POA and stable. -Continue home doxazosin Hypothyroidism, presently in remission. Ongoing -Continue levothyroxine Patient will like to remain full code for remainder of his stay in hospital, his CODE STATUS will be changed upon discharge home under hospice care. Disposition: Patient will most likely discharge under hospice care tomorrow or the following day Resuscitation Status: CPR: Attempt Resuscitation Attending Statement The patient was seen and examined together with Dr. Ferrera on December 10 and I agree with the history, exam findings, and plan as outlined in the note above. I did participate in all aspects of the services provided today, including documentation and the plan of care. We will continue to support him with hospice initiation for his recurrent left malignant pleural effusion which is been drained twice now since admission through his Pleurx. JASMIN FERRERA DO Dec 10, 2016 15:30 Justin Ladd MD Dec 20, 2016 15:37
[2016-12-10] MEDS: diphenhydrAMINE 25 mg Capsule PO PRN (15:40)
--- NOTE | 2016-12-10 19:24 | NUR ---
Pain/Resp Patient a/o x 3, c/o chest/plueritic pain frequently, Oxycodone given q 4hr with min relief. Lungs course with wheezes bilat, recieving neb tx q 2hr PRN. 250 ml serosang fluid removed from the Pluerex drain this a.m. patient liat well. Patient taking nutritional supplements throughout the shift. Patient oob to bsc several times, having small soft stools. Voiding small amts of urine frequently. Benadryl given this afternoon and patient able to sleep for 1-2 hrs. Family at bedside throughout the shift and very supportive with care.
[2016-12-11] VITALS (15 sets, daily range): BP systolic 122–177; BP diastolic 64–85; PULSE 74–105; RESP 22–36; O2SAT 88–95
[2016-12-11] MEDS: diphenhydrAMINE 25 mg Capsule PO PRN (00:02)
[2016-12-11] MEDS: Heparin 5,000 Unit/mL Inj SUBQ SCH ×3 (00:03→16:43)
[2016-12-11 04:46] LABS: Mean Corpuscular Hemoglobin 31.1 pg (27.0-35.0); Platelet Count 193 bil/L (150-400)
[2016-12-11 05:35] LABS: EOSINOPHILS % (AUTO) 1 % (0-5); MONOCYTES % (AUTO) 13 % (4-12); NEUTROPHILS % (AUTO) 75 % (40-74)
[2016-12-11 05:36] LABS: BASOPHILS % (AUTO) 0 % (0-3)
--- NOTE | 2016-12-11 06:00 | NUR ---
Pain/Respiratory patient remains alert and oriented x4, denies chest pain but continues to c/o left thoracic cavity pain 6-8/10 through the shift. He received Oxycodone Q4hrs, tramadol Q 6hrs, but pain seem to only go down 1 point. Pt also requested for benadryl to "calm nerves". He remains on 13L Oxy mask, he has SOB at rest and worse with activities. PleurX drained 300 cc serosanguineous fluid at begining of shift, pt reported slight improvement with breathing. HR 70's-80's SR with frequent PAC's and 3 seconds run of PSVT assymptomatic. He could not tolerate laying on his side, encouraged to shift weight frequently to prevent skin breakdown. Drain site remains C,D,I. Pt has a Mepilex on his bottom which remains C,D&I.
[2016-12-11] MEDS: 0.9% Sodium Chloride 1,000 ML IV SCH (06:33)
[2016-12-11] MEDS: Albuterol 2.5 mg/3 mL Inhalation Solution NEB PRN ×5 (07:32→20:53)
[2016-12-11] MEDS: predniSONE 10 mg Tablet PO SCH (08:01)
[2016-12-11] MEDS: Cefepime Inj 1,000 MG in Dextrose 5% Minibag Plus 50 ML IV SCH (08:01)
--- NOTE | 2016-12-11 12:04 | NUR ---
Social Work: Continued Discharge Planning/Multidisciplinary Rounds D: PREDICTIVE MAINTENANCE TECHNICIAN spoke with Angela, with [facility] referrals. She states that the patient and his had an info visit yesterday and that consents were signed. Their soonest opening is Saturday12/14/16 at 10:00am. They will work on DME delivery. PREDICTIVE MAINTENANCE TECHNICIAN inquired if they are able to manage the patient's plurex drain. Angela has confirmed with their RN and states that they can manage Plurex Drains. Pt is currently on ; PREDICTIVE MAINTENANCE TECHNICIAN has left a message for [facility] to confirm what they are able to manage at home in regards to pt's 02 needs. A: Pt who has decided to transition to comfort/hospice care at discharge P: Anticipate pt to discharge home on Saturday with [facility] to open at 10am. PREDICTIVE MAINTENANCE TECHNICIAN to confirm 02 requirements with [facility] and confirm delivery of DME. MASOUD Miner Addendum: 12/11/16 at 1329 by JOHANNE GOMEZ PREDICTIVE MAINTENANCE TECHNICIAN received confirmation from [facility] that they can manage the patient on his current amount of oxygen. The patient will likely require BLS transport due to his oxygen needs. Angela with Hospice has also provided PREDICTIVE MAINTENANCE TECHNICIAN with an update on the patient's intake time. They are now able to see him on morning at 10:00am
[2016-12-11] MEDS: Polyethylene Glycol (PEG) 17 Gm Powder PO PRN (13:00)
--- NOTE | 2016-12-11 13:51 | NUR ---
Respiratory/Oxygen/Pain: Patient had increased work of breathing this morning and SpO2 was 85% on 13L NC. O2 was increased to 15L to increase SpO2 to low to mid 90's. PleuriX was drained 550cc of sero sanguinous fluid. Pt A&O X3 with c/o 9/10 back pain, Oxycodone 5mg PO was administered and shortly after pleural fluid was drained c/o 7/10 L lung pain, Tramadol 50mg PO administered. Pt now reports 5/10 pain overall. Patient is assisted with repositioning frequently and states he is unable to turn on to side due to increased back pain and worsening SOB when on his side. Pt educated on importance of skin integrity and pillows were used to bridge and relive pressure from sacrum. Mepilex on sacrum C/D/I.
--- NOTE | 2016-12-11 14:12 | PCM.ADCARE ---
Advance Care Planning Note Purpose of Encounter: To discuss level care, hospice consideration, as well as resuscitation status Parties in Attendance: Patient, son, and . Decisional Capacity: He is decisional Subjective: The patient is less short of breath after having a another draining of his Pleurx today. He has mild pleuritic left-sided chest pain around the drain. Objective: He is breathing 20-25 times minute but appears comfortable flaxseed mask. Lungs for decreased breath sounds in the left base and expiratory wheezing diffusely. Heart is tachycardic and regular Extremities are free of edema. Goals of Care Determinations: The patient remains full resuscitation. He was strongly urged to consider DO NOT RESUSCITATE as I believe suspicion of this would be futile with his comorbidities and her cardiopulmonary status. He would like to pursue his last dose of palliative chemotherapy in the next day. He indicates a lack of understanding of the nature of his cancer and its incurability. Plan: Full code and will continue to discuss this. Pleurx drain with recurrent drainage of malignant pleural effusion for comfort. The patient is not able to address other higher level of care questions at this time. He is intending to go home and neck several days with home oxygen and hospice. The goals of hospice or reinforced as providing him with comfort and support at home with his increased needs and the terminal phase of his life. CODE STATUS: For resuscitation, with strong recommendation for him to consider changing to DO NOT RESUSCITATE. Time Spent Adv.Care Plannin Minutes Justin Ladd MD Dec 11, 2016 14:12
[2016-12-11] MEDS: Alum-Mag Hydrox-Simeth 30 mL Suspension PO PRN (15:44)
--- NOTE | 2016-12-11 17:21 | PCM.PNMED ---
Subjective Date of Service Dec 11, 2016 Subjective Pt states that he feels better, pasquale is working. Had an additional 300mL of fluid drained yesterday. He is currently set up to [facility] tomorrow, though states that she is trying to speak with the oncology service to have Pt receive his last dose of Chemotherapy today. He would still like to remain full. code until discharge. Exam Vital Signs Vital Sign - Last Date Time Temp Pulse Resp B/P Pulse Ox O2 Delivery O2 Flow Rate FiO2 12/11/16 07:32 105 22 95 OxyMask 13.00 12/11/16 04:10 37.0 122/77 Intake and Output 12/10/16 12/10/16 12/11/16 Cumulative From/Thru 15:00 23:00 07:00 12/08/16 10:26 - 12/11/16 06:51 Intake Total 1773 ml 678 ml 5845 ml Output Total 400 ml 300 ml 2175 ml Balance 1373 ml 378 ml 3670 ml Intake Oral 1200 ml 2780 ml IV Total 573 ml 678 ml 3065 ml Output Urine Total 400 ml 1875 ml Drainage Total 300 ml 300 ml # Bowel Movements 4 Exam General: Awake and alert lying in hospital bed in mild distress, under nourished , Oxy mask in place with obvious increased work of breathing and audible crackles. and son present at bedside HEENT: Normocephalic, atraumatic. External ears without defect. Pupils equal, round, and reactive to light and accommodation. Neck: No jugular venous distension. Cardiovascular: Tachycardic rate with regular rhythm no murmurs Pulmonary: Inspiratory and Expiratory crackles with diminished lung sounds, increased work of breathing and accessory muscle usage. Abdomen: Soft, nontender, nondistended. Extremities: No clubbing, cyanosis, edema. Skin: Normal temperature, turgor, and texture Neurological: Cranial nerves grossly intact. Psychiatric: Normal mood and affect. Alert and oriented to person, place, and time. IVs and Medications Medications Reviewed: Medications were reviewed in detail Lab and Diagnostics Result Diagram: 12/11/1641912/11/16419 X-Rays, CTs and MRIs . X-RAY CHEST ONE VIEW, PORTABLE IMPRESSION: Slight interval worsening of the diffuse mild pulmonary edema pattern with what likely is dense pneumonia of the left mid and lower lung. Left pleural drain in stable position along the posterior medial left hemithorax also seen by recent CT scanning. Dictated by: Farhan Cano M.D. on 12/08/2016 X-RAY CHEST ONE VIEW, PORTABLE IMPRESSION: 1. Persistent left basilar consolidation. 2. Slightly improved aeration suggesting diuresis. Dictated by: Negin Mott M.D. on 12/09/2016 Assessment & Plan 76 male with past medical history stage IV adenocarcinoma admitted for respiratory distress secondary to malignant pleural effusions possible healthcare associated pneumonia. Recurrent left-sided malignant pleural effusion, POA and active. -Remains dyspneic with supplemental oxygen requirements to maintain saturations -Continue with Pleurx drains 550 mL afternoon with good effect -Continue duo nebs every 2 when necessary -10 mg prednisone daily Acute on chronic respiratory failure with hypoxia, POA and active. -Plan is to discharge under hospice care tomorrow 12/12/2016 -Bronchodilators as above -Possible underlying pneumonia, antibiotics include cefepime Stage IV adenocarcinoma of lung, T2 N2 M1. POA and active. -No treatment while in hospital Benign prostate hypertrophy, POA and stable. -Continue home doxazosin Hypothyroidism, presently in remission. Ongoing -Continue levothyroxine Patient will like to remain full code for remainder of his stay in hospital, his CODE STATUS will be changed upon discharge home under hospice care. Conversation had with patient and family regarding CODE STATUS and wishes moving forward. Disposition: Patient will most likely discharge under hospice care tomorrow or the following day Resuscitation Status: CPR: Attempt Resuscitation Attending Statement The patient was seen and examined together with Dr. Ferrera on December 11 and I agree with the history, exam findings, and plan as outlined in the note above. I did participate in all aspects of the services provided today, including documentation and the plan of care. The patient will continue to be treated for his recurrent left malignant pleural effusion. Patient is extremely to hospice and this will be initiated with goal of discharge home. 550 more milliliters of fluid were drained from his Pleurx left-sided drain today. JASMIN FERRERA DO Dec 11, 2016 07:39 Justin Ladd MD Dec 20, 2016 15:53
[2016-12-11] MEDS: DEXTROSE 5% IV SCH (20:20)
[2016-12-11] MEDS: CEFEPIME IV SCH (20:20)
[2016-12-12] VITALS (10 sets, daily range): BP systolic 120–131; BP diastolic 54–70; PULSE 81–97; RESP 8–26; O2SAT 90–94
[2016-12-12] MEDS: diphenhydrAMINE 25 mg Capsule PO PRN (00:13)
[2016-12-12] MEDS: Heparin 5,000 Unit/mL Inj SUBQ SCH ×3 (00:13→16:30)
[2016-12-12] MEDS: Albuterol 2.5 mg/3 mL Inhalation Solution NEB PRN ×2 (00:27→04:33)
[2016-12-12 05:18] LABS: BASOPHILS % (AUTO) 0.5 % (0-3); EOSINOPHILS % (AUTO) 1.4 % (0-5); MONOCYTES % (AUTO) 13.1 % (4-12); Mean Corpuscular Hemoglobin 31.6 pg (27.0-35.0); Mean Corpuscular Volume 97.4 fL (81-100); Platelet Count 207 bil/L (150-400)
--- NOTE | 2016-12-12 05:41 | NUR ---
Respiratory/Oxygen/Pain Pt lung sounds coarse with audible wheezing, pt currently on 16L oxymask with SpO2 low to mid 90's. Pt using accessory muscles to breathe and RR 25-30. Pt having anxiety r/t his inability to catch his breath and having pain in his abdomen from the plurex drain. Pt rating this pain 10/10 at times. Administered morphine and oxycodone with some relief. Discussed with pt and family regarding allergy or adverse reaction to diazepam. stated that he "went out of his mind" discussed with family the option of Ativan to calm and relax pt and family and pt agreeable to medication, with stating "I just want him to be comfortable" Pt awake around 0400 in severe pain and very anxious MD notified and orders for .5 mg Ativan given. Administered .5 mg Ativan as well 2mg morphine and 5 oxycodone. Pt still very uncomfortable. RT notified and will be placing a non rebreather on pt and MD notified, and orders for IVP 1 mg dilaudid given. Administered 1 mg and awaiting reassessment. Addendum: 12/12/16 at 0643 by HENRI DUARTE RN Non rebreather placed for comfort.
[2016-12-12] MEDS: HYDROmorphone 1 mg/mL Inj IVPUSH PRN ×7 (06:38→14:18)
[2016-12-12] MEDS: predniSONE 10 mg Tablet PO SCH (08:30)
[2016-12-12] MEDS: CEFEPIME IV SCH (08:30)
[2016-12-12] MEDS: DEXTROSE 5% IV SCH (08:30)
--- NOTE | 2016-12-12 09:35 | PROG NOTE ---
[address] [address] PROGRESS NOTE PATIENT: SURY GROSS : 1940 MR#: [id number] ADMIT: 12/08/2016 JOB ID: [id number] DATE: 12/12/2016 SUBJECTIVE: The patient is a 76-year-old gentleman with metastatic adenocarcinoma of the left upper lung. He has been heavily pretreated, including recent immunotherapy with pembrolizumab. He has had recurrent pleural effusion and has a PleurX catheter. He was rehospitalized on December 08, 2016 with increased respiratory distress. Imaging showed worsening of pulmonary edema in the left mid and lower lung. He had minimal relief with drainage from his PleurX catheter. He has had significant pain and is now on both Dilaudid and morphine for symptomatic relief. He has opted for palliative care. His is at the bedside, very tearful. OBJECTIVE: Vitals: T 36.3, P 90, R 20, BP 131/70, O2 saturation 94% on 16 L by Oxy Mask. HEENT: Conjunctivae pale. Mucous membranes dry. Chest: Decreased breath sounds in the left lung with a few scattered crackles. Cardiac examination: Tachycardic but regular with normal S1, S2. Abdomen: Soft, nontender. Extremities: Trace edema. 1+ distal pulses. LABORATORIES: WBC 13.1 with 67% neutrophils, hemoglobin 11.1, hematocrit 34.2%, platelets 207,000. ASSESSMENT AND PLAN: T2 N2 M1 (stage IV) adenocarcinoma of the left upper lung: The patient has progressive disease and a persistent left pleural effusion, despite placement of a PleurX catheter. Clinically he is rapidly declining. There is little hope of response to any further treatment. I spoke with the , and reinforced discontinuation of chemotherapy/immunotherapy. She agrees that palliative care is the best option in this setting. She was very tearful. Hospice has been consulted and the patient will likely be discharged home or to an outside facility with hospice support in the near future. Life expectancy is brief. The patient's will require significant support as she goes through her grieving process. She lost her previous to similar circumstances about 30 years ago.
--- NOTE | 2016-12-12 11:08 | NUR ---
Palliative Care - Cancelled Palliative Care received order from Dr Hensley 12/12/16, however, patient will be opening with hospice end of this week. No need for Palliative Care to see patient. Order cancelled per Dr Huitron. Jillian Pulido
--- NOTE | 2016-12-12 11:31 | NUR ---
code status/comfort care/digital strategy manager During shift change report Dr Hensley informed RN's that pt is now DNR and palliative has been consulted. During rounds Dr Hensley stated this again and Palliative said pt is already on hospice service. Dr Hensley stated she would put in the remaining comfort care orders. Upon assesment pt is obviously uncomfortable, restless, and moaning out in pain. His is crying and anxious. After a few doses of pain medication by 1000 pt looks very comfortable and is calm and thankful for his comfort. Pt's family digital strategy manager came to do last rights with pt and family.
--- NOTE | 2016-12-12 11:41 | NUR ---
spiritual care: following support to gathering family as they anticipated meteorological equipment repairer visit. Family shared reports of pt's pain overnight and relief he seems to be experiencing with palliative medicine. Family considering pt's return home with hospice as well as possibility that he will pass away in hospital. prayer
--- NOTE | 2016-12-12 12:00 | NUR ---
Social Work: Readiness for Discharge/Multidisciplinary Rounds D: Pt discussed in multidisciplinary rounds; pt is not comfort care and has been accepted with [facility] to open on at 10:00am. Pt's has expressed concern about moving the patient prematurely. The patient is on 16 L 02 and would likely need ALS transport due to his increased o2 needs. [facility] RN who was present in multidisciplinary rounds confirms that they can manage the patient with this level of oxygen. t/c from Angela at [facility]; she states [employer] will be contacting the to confirm a time to accept the DME delivery. GEOGRAPHY FACULTY MEMBER met with the patient's and son, Josh at bedside to review discharge plan and discuss their concerns about transport. states that "if he were to discharge today I don't think that would be good for him." GEOGRAPHY FACULTY MEMBER affirmed this concern and informed her of the plan to discharge tomorrow with ALS transport. states that she understands. GEOGRAPHY FACULTY MEMBER informed her to await a phone call from [facility] to confirm a time to accept the DME equipment. The patient states that she will await this call and will notify the social worker school if the equipment has not been delivered. A: Pt who is now comfort care P: Anticipate pt to discharge tomorrow with [facility] to open at 10:00am. Pt will likely require ALS transport. MASOUD Miner Addendum: 12/12/16 at 1639 by JOHANNE GABRIEL Per conversation with pt's bedside RN and the attending physician, pt's clinical status is declining rapidly and will likely not be a candidate for discharge home with hospice. Provider informed GEOGRAPHY FACULTY MEMBER to check in tomorrow morning to confirm that pt's status has not stabilized overnight before canceling hospice intake time. GEOGRAPHY FACULTY MEMBER agreed. She anticipates pt will likely pass with 24-48 hours.
--- NOTE | 2016-12-12 13:14 | PCM.ADCARE ---
Advance Care Planning Note Purpose of Encounter: To discuss goals of care Parties in Attendance: Patient and Decisional Capacity: Patient's clinical status has deteriorated so I discussed his general status is partially from patient and partially from Subjective: Patient did get drained again with his Pleurx but clinically he is having worsening shortness of breath along with left-sided pleuritic chest pain. Objective: Constitutional: Patient is dyspneic and complaining of left-sided chest pain and head: Normocephalic atraumatic Chest: Diffuse rhonchi Cor: Tachycardic S1-S2 Extremities: No pedal edema Neuro: Slightly drowsy but does arouse and able to answer questions Goals of Care Determinations: After these discussions between patient and wishes comfort care only. We will however drain Pleurx as needed for additional comfort. Plan: DNR/DNI, comfort care only Pleurx drain to be used for comfort Patient is set up with hospice who will be able to admit patient for home care tomorrow at 9 AM. CODE STATUS: DNR/DNI comfort care only Time Spent Adv.Care Plannin minutes Adv. Care Plan Documenation: Hospice to start tomorrow Dianelys Hensley MD Dec 12, 2016 13:14
--- NOTE | 2016-12-12 16:48 | PCM.PNMED ---
Subjective Date of Service Dec 12, 2016 Subjective Patient has rapidly declined and family is aware. I did discuss with and patient and with his comfort care only at this point. He still is having some discomfort in spite of IV morphine boluses and we did discuss starting IV morphine drip and titrate to effect. And family is agreeable with this plan. Exam Vital Signs Vital Sign - Last Date Time Temp Pulse Resp B/P Pulse Ox O2 Delivery O2 Flow Rate FiO2 12/12/16 16:00 10 12/12/16 15:34 Supplement Oxygen 12/12/16 09:58 97 12/12/16 07:50 37.3 120/54 90 16.00 Intake and Output 12/11/16 12/11/16 12/12/16 Cumulative From/Thru 15:00 23:00 07:00 12/08/16 10:26 - 12/12/16 05:25 Intake Total 780 ml 990 ml 900 ml 8515 ml Output Total 500 ml 1175 ml 475 ml 4325 ml Balance 280 ml -185 ml 425 ml 4190 ml Intake Oral 780 ml 640 ml 900 ml 5100 ml IV Total 350 ml 3415 ml Output Urine Total 500 ml 625 ml 475 ml 3475 ml Drainage Total 550 ml 850 ml # Bowel Movements 2 0 6 Exam Constitutional: Elderly male with some increased lethargy and some left-sided chest pain along with shortness of breath. Head: Normocephalic atraumatic Chest: Diffuse rhonchi Cor: Regular rate and rhythm S1-S2 Abdomen: Soft nontender bowel sounds present Extremities: No pedal edema IVs and Medications Medications Reviewed: Medications were reviewed in detail Lab and Diagnostics Result Diagram: 12/12/16 0508 12/12/16 0508 X-Rays, CTs and MRIs . X-RAY CHEST ONE VIEW, PORTABLE IMPRESSION: Slight interval worsening of the diffuse mild pulmonary edema pattern with what likely is dense pneumonia of the left mid and lower lung. Left pleural drain in stable position along the posterior medial left hemithorax also seen by recent CT scanning. Dictated by: Farhan Cano M.D. on 12/08/2016 X-RAY CHEST ONE VIEW, PORTABLE IMPRESSION: 1. Persistent left basilar consolidation. 2. Slightly improved aeration suggesting diuresis. Dictated by: Negin Mott M.D. on 12/09/2016 Assessment & Plan 76 male with past medical history stage IV adenocarcinoma admitted for respiratory distress secondary to malignant pleural effusions possible healthcare associated pneumonia. Recurrent left-sided malignant pleural effusion, POA and active. -Remains dyspneic with supplemental oxygen requirements to maintain saturations -Did have some drainage done yesterday but still remains fairly significantly symptomatic and we will proceed with comfort measures only Acute on chronic respiratory failure with hypoxia, POA and active. 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 POA and active. -No treatment while in hospital -As per Dr. Whitfield: ASSESSMENT AND PLAN: T2 N2 M1 (stage IV) adenocarcinoma of the left upper lung: The patient has progressive disease and a persistent left pleural effusion, despite placement of a PleurX catheter. Clinically he is rapidly declining. There is little hope of response to any further treatment. I spoke with the , and reinforced discontinuation of chemotherapy/immunotherapy. She agrees that palliative care is the best option in this setting. She was very tearful. Hospice has been consulted and the patient will likely be discharged home or to an outside facility with hospice support in the near future. Life expectancy is brief. The patient's will require significant support as she goes through her grieving process. She lost her previous to similar circumstances about 30 years ago. Benign prostate hypertrophy, POA and stable. -Hold oral medications for Hypothyroidism, presently in remission. Ongoing -Hold oral medications CODE STATUS -Please see advanced care planning note from today but after further discussions with patient and comfort care measures will be instituted. Resuscitation Status: CPR: Attempt Resuscitation Time spent 30 minutes Dianelys Hensley MD Dec 12, 2016 16:48
--- NOTE | 2016-12-12 17:05 | NUR ---
transfer Report called to Castillo Ugalde RN all questions asked and answered. Pt transferred in bed at pt spouse request by RENTAL CLERK to room 3023
[2016-12-12] MEDS: SODIUM CHLORIDE IV SCH (17:46)
[2016-12-12] MEDS: MORPHINE IV SCH (17:46)
--- NOTE | 2016-12-12 18:20 | NUR ---
Transfer note/Morphine gtt- Received patient via bed from [facility]. Patient moaning and restless and appears to be difficulty with breathing. O2 on at 6 liters nasal canula. Morphine infusion started per comfort care orders at 1 mg/hr, and increased to present dose of 4mg/hr. Patient was receiving Morphine 4mg IVP prior to starting infusion. Double checked dose and rate with another RN. Family at bedside and informed of plan of care and comfort care.
--- NOTE | 2016-12-13 05:20 | NUR ---
Pain/ Comfort Patient pain increased in the side, morphine drip increased from 4mg to 5 mg with good pain control. Nasal canula changed per patient request.
--- NOTE | 2016-12-13 08:40 | PROG NOTE ---
[address] [address] PROGRESS NOTE PATIENT: SURY GROSS : 1940 MR#: [id number] ADMIT: 12/08/2016 JOB ID: [id number] DATE: 12/13/2016 SUBJECTIVE: The patient is a 76-year-old gentleman with progressive metastatic adenocarcinoma of the left upper lung. He is now on palliative care. He is comfortable this morning. He is on a morphine 1 mL/h plus p.r.n. morphine 2-4 mg as needed as well as Dilaudid 1 mg p.r.n. for pain control. He has a scopolamine 1.5 mg patch to reduce secretions. He is on supplemental oxygen 10 L at this time. He is resting comfortably. He has been afebrile overnight. OBJECTIVE: Vitals: T 37.3, P 97, R 10. HEENT: Conjunctivae slightly pale. Mucous membranes dry. Chest: Decreased at the bases. A few scattered crackles. Cardiac examination: Tachycardic but regular. Abdomen: Soft. Extremities: Trace edema. 1+ distal pulses. LABORATORIES: None. ASSESSMENT AND PLAN: Stage IV adenocarcinoma of the left upper lung: The patient is terminal. He is receiving supportive care, with supplemental oxygen and pain control. He appears comfortable. Life expectancy is brief. Spoke with the and son, who would like to see the patient remain in hospital until end of life if possible. Other options would include transfer home with hospice or to a local nursing home facility. Further discussions will be held with the hospitalist team.
--- NOTE | 2016-12-13 09:01 | NUR ---
Social Work-continued d/c planning: Data:EMR Reviewed. Pt is on day 5 of hospitalization for malignant pleural effusion per H&P. SW spoke with MD this morning who states that she will not be discharging pt and pt will remain at the hospital on comfort and expects pt to pass in the next 24 hours. SW called Hospice and cancelled intake for today. SW met with pt and family and explained above information, family agreeable. SW will continue to follow. Assessment:Pt who is on comfort care. Plan:Pt to remain at [facility] on comfort care. Hospice intake cancelled for today per MD. SW will continue to follow. MASOUD Garsia
[2016-12-13] MEDS ORDERED: Alum-Mag Hydrox-Simeth 30 mL Suspension PO PRN (09:35)
[2016-12-13 11:45] VITALS: PULSE 108; RESP 20
[2016-12-13] MEDS: Albuterol 2.5 mg/3 mL Inhalation Solution NEB PRN (11:56)
[2016-12-13] MEDS: SODIUM CHLORIDE IV SCH (11:57)
[2016-12-13] MEDS: MORPHINE IV SCH (11:57)
[2016-12-13] MEDS ORDERED: LORazepam 100 mg/100 mL Drip IV SCH ×2 (12:40)
--- NOTE | 2016-12-13 14:03 | PCM.PNMED ---
Subjective Date of Service Dec 13, 2016 Subjective Patient does have some moments of being alert but appears to have struggle with respiratory distress along with some left-sided chest pain. Exam Vital Signs Vital Sign - Last Date Time Temp Pulse Resp B/P Pulse Ox O2 Delivery O2 Flow Rate FiO2 12/13/16 11:45 108 20 OxyMask 5.00 12/12/16 07:50 37.3 120/54 90 Intake and Output 12/12/16 12/12/16 12/13/16 Cumulative From/Thru 14:59 22:59 06:59 12/08/16 10:26 - 12/13/16 05:35 Intake Total 100 ml 8615 ml Output Total 300 ml 4625 ml Balance -200 ml 3990 ml Intake Oral 100 ml 5200 ml IV Total 3415 ml Output Urine Total 300 ml 3775 ml Drainage Total 850 ml # Bowel Movements 0 6 Exam Constitutional: Elderly male who appears in respiratory distress Head: Normocephalic atraumatic Chest diffuse rhonchi Cor: Regular rate and rhythm S1-S2 Abdomen: Soft nontender bowel sounds present Extremities: No pedal edema Neuro: He is lethargic but does arouse and can answer some questions and moves all extremities equally Lab and Diagnostics Result Diagram: 12/12/16 0508 12/12/16 0508 X-Rays, CTs and MRIs . X-RAY CHEST ONE VIEW, PORTABLE IMPRESSION: Slight interval worsening of the diffuse mild pulmonary edema pattern with what likely is dense pneumonia of the left mid and lower lung. Left pleural drain in stable position along the posterior medial left hemithorax also seen by recent CT scanning. Dictated by: Farhan Cano M.D. on 12/08/2016 X-RAY CHEST ONE VIEW, PORTABLE IMPRESSION: 1. Persistent left basilar consolidation. 2. Slightly improved aeration suggesting diuresis. Dictated by: Negin Mott M.D. on 12/09/2016 Assessment & Plan 76 male with past medical history stage IV adenocarcinoma admitted for respiratory distress secondary to malignant pleural effusions possible healthcare associated pneumonia. Recurrent left-sided malignant pleural effusion, POA and active. -Remains dyspneic with supplemental oxygen requirements to maintain saturations -Did have some drainage done yesterday but still remains fairly significantly symptomatic and we will proceed with comfort measures only -IV morphine drip was started on December 12 for comfort measures Acute on chronic respiratory failure with hypoxia, POA and active. 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 POA and active. -No treatment while in hospital -As per Dr. Whitfield: ASSESSMENT AND PLAN: T2 N2 M1 (stage IV) adenocarcinoma of the left upper lung: The patient has progressive disease and a persistent left pleural effusion, despite placement of a PleurX catheter. Clinically he is rapidly declining. There is little hope of response to any further treatment. I spoke with the , and reinforced discontinuation of chemotherapy/immunotherapy. She agrees that palliative care is the best option in this setting. She was very tearful. Hospice has been consulted and the patient will likely be discharged home or to an outside facility with hospice support in the near future. Life expectancy is brief. The patient's will require significant support as she goes through her grieving process. She lost her previous to similar circumstances about 30 years ago. Benign prostate hypertrophy, POA and stable. -Hold oral medications for Hypothyroidism, presently in remission. Ongoing -Hold oral medications CODE STATUS -Please see advanced care planning note from December 12 but after further discussions with patient and comfort care measures will be instituted. Pain Evaluation: Adequate Pain Control Resuscitation Status: DNR/DNI:Do Not Resuscitate/Intubate Time spent 30 minutes Dianelys Hensley MD Dec 13, 2016 14:03
--- NOTE | 2016-12-13 14:55 | NUR ---
Resp distress Pt denied any pain today on Morphine gtt at 5mg/hr. Pt later had more gurgling and some respiratory distress, given PRN Ativan 1mg and respiratory therapy gave neb tx. Later received Ativan gtt, which was initiated at 2mg/hr. Family at bedside. Care continues.
--- NOTE | 2016-12-13 16:07 | NUR ---
Discharge Family alerted this RN. Found patient without pulse or RR and confirmed with Sonny Ortiz RN. Family notified at bedside.
--- NOTE | 2016-12-13 16:12 | NUR ---
Social Work-discharge: SW updated by primer charger that pt has . No other SW needs identified. MASOUD Garsia
--- NOTE | 2016-12-13 16:19 | PCM.DC.MEX ---
Discharge Summary Date of Service Dec 13, 2016 Dates of Hospitalization Date of Hospital Admission Dec 08, 2016 at 16:43 Date of Expiration: Dec 13, 2016 Time of Expiration: 16:07 Providers: Admitting Physician: Justin Ladd MD Primary Care Physician: Oleg Broderick MD Attending Physician: Dianelys Hensley MD Diagnosis at Time of Stage IV lung adenocarcinoma Consultations Oncology Procedures XRay, CTs & MRIs . X-RAY CHEST ONE VIEW, PORTABLE IMPRESSION: Slight interval worsening of the diffuse mild pulmonary edema pattern with what likely is dense pneumonia of the left mid and lower lung. Left pleural drain in stable position along the posterior medial left hemithorax also seen by recent CT scanning. Dictated by: Farhan Cano M.D. on 12/08/2016 X-RAY CHEST ONE VIEW, PORTABLE IMPRESSION: 1. Persistent left basilar consolidation. 2. Slightly improved aeration suggesting diuresis. Dictated by: Negin Mott M.D. on 12/09/2016 Brief History This is a 76-year-old gentleman with a history of stage IV adenocarcinoma of the long, T2 N2 M1. He has known bone metastases as well as a recurrent left sided pleural effusion. The patient has a Pleurx drain which has been used 34 drainage. He tolerates 250 mils of output at a time. He has increased pain if too much fluid is drained. The patient has 3-4 days of progressive dyspnea without cough. His acute on chronic pleuritic left-sided chest pain. He presented to the ER as instructed and instead of having the fluid drained he was admitted observation status for ongoing care. He denies fevers or chills. No abdominal pains. He does have progressive anorexia. No nausea or vomiting. He denies any skin rash. No falls or trauma. He continues to have difficulty understanding his grim prognosis. He was treated with Taxol and carboplatin for several months with progression of disease and had recently started an amino modulator pembrolizumab. Hospital Course 76 male with past medical history stage IV adenocarcinoma admitted for respiratory distress secondary to malignant pleural effusions possible healthcare associated pneumonia. Recurrent left-sided malignant pleural effusion, POA and active. -Remains dyspneic with supplemental oxygen requirements to maintain saturations -Did have some drainage done yesterday but still remains fairly significantly symptomatic and we will proceed with comfort measures only -IV morphine drip was started on December 12 for comfort measures Acute on chronic respiratory failure with hypoxia, POA and active. -Plan is to discharge under hospice care tomorrow 12/12/2016 -Initiate comfort care and we will start IV morphine drip and titrate to comfort -Also IV Ativan was initiated and transitioned over to a drip so titration for increased anxiety Stage IV adenocarcinoma of lung, T2 N2 M1. POA and active. -No treatment while in hospital -As per Dr. Whitfield: ASSESSMENT AND PLAN: T2 N2 M1 (stage IV) adenocarcinoma of the left upper lung: The patient has progressive disease and a persistent left pleural effusion, despite placement of a PleurX catheter. Clinically he is rapidly declining. There is little hope of response to any further treatment. I spoke with the , and reinforced discontinuation of chemotherapy/immunotherapy. She agrees that palliative care is the best option in this setting. She was very tearful. Hospice has been consulted and the patient will likely be discharged home or to an outside facility with hospice support in the near future. Life expectancy is brief. The patient's will require significant support as she goes through her grieving process. She lost her previous to similar circumstances about 30 years ago. Benign prostate hypertrophy, POA and stable. -Hold oral medications Hypothyroidism, presently in remission. Ongoing -Hold oral medications CODE STATUS -Please see advanced care planning note from December 12 but after further discussions with patient and comfort care measures will be instituted. Exam Test 12/08/16 11:37 12/08/16 16:00 12/11/16 06:26 12/12/16 05:08 Troponin T < 0.010ug/L (0.0-0.011) Procalcitonin 0.17ng/mL (0.00-0.08) Hold [place] Top Tube Received (Received) Hold Urine Received (Received) White Blood Count 13.1th/mm3 (3.8-10.1) Red Blood Count 3.51mil/mm3 (4.40-5.80) Hemoglobin 11.1g/dL (13.8-17.2) Hematocrit 34.2% (41.0-50.0) Mean Corpuscular Volume 97.4fL (81-100) Mean Corpuscular Hemoglobin 31.6pg (27.0-35.0) Mean Corpuscular Hemoglobin Concent 32.5% (32.0-37.0) Red Cell Distribution Width 17.4% (12.3-15.4) Platelet Count 207bil/L (150-400) Neutrophils (%) (Auto) 67.0% (40-74) Lymphocytes (%) (Auto) 6.1% (14-46) Monocytes (%) (Auto) 13.1% (4-12) Eosinophils (%) (Auto) 1.4% (0-5) Basophils (%) (Auto) 0.5% (0-3) Band Neutrophils % 4% (1-5) Metamyelocytes % 1% (0-0) Hematology Comments Wbc Sodium Level 127mEq/L (134-144) Potassium Level 4.4mEq/L (3.5-5.2) Chloride Level 87mEq/L (97-108) Carbon Dioxide Level 30mmol/L (18-29) Blood Urea Nitrogen 12mg/dL (8-27) Creatinine 0.40mg/dL (0.76-1.27) Estimat Glomerular Filtration Rate 221mL/min (>59) Glucose Level 117mg/dL (60-99) Calcium Level 8.2mg/dL (8.5-10.1) Total Bilirubin 0.4mg/dL (0.0-1.2) Aspartate Amino Transf (AST/SGOT) 23U/L (0-50) Alanine Aminotransferase (ALT/SGPT) 17U/L (0-44) Alkaline Phosphatase 115U/L (25-160) Total Protein 4.9g/dL (6.4-8.4) Albumin 2.5g/dL (3.4-5.0) Time spent 30 minutes copies to: Oleg Broderick MD; Paramjit Whitfield MD, Cheryl A MD Dec 13, 2016 16:19
--- NOTE | 2016-12-13 18:38 | NUR ---
Discharge Pt family at bedside. All appropriate people notified and paper work filled out. [facility] home notified. Gave family privacy to be with loved one. Family dressed pt as pt requested. took all belongings home. No items in the safe or pharmacy. Post mortem care done by CONCRETE BATCH PLANT OPERATOR. Security notified to transport pt.
== END 2016-12-13 16:00 | disposition expired | DRG 180 ==
LOC: EDUNIT# 10:14 → SED 10:14 → EDBD 10:14 → OBSVTOIN 16:43 → PCC 16:43 → INTOOBSV 16:43 → PCC 17:53 → MPC 12-12 16:32
PROVIDERS: ADMIT Hospitalist; ATTEND Specialist
DX: C34.12 Malignant neoplasm of upper lobe, left bronchus or lung (principal); J96.21 Acute and chronic respiratory failure with hypoxia; J18.9 Pneumonia, unspecified organism; J91.0 Malignant pleural effusion; C79.51 Secondary malignant neoplasm of bone; K50.90 Crohn's disease, unspecified, without complications; R64 Cachexia; R63.0 Anorexia; K21.9 Gastro-esophageal reflux disease without esophagitis; E03.9 Hypothyroidism, unspecified; N40.1 Benign prostatic hyperplasia with lower urinary tract symptoms; R39.15 Urgency of urination; Z68.20 Body mass index [BMI] 20.0-20.9, adult; Z87.891 Personal history of nicotine dependence; Z99.81 Dependence on supplemental oxygen; Z66 Do not resuscitate; Z51.5 Encounter for palliative care